=== PATIENT | male | born 1950 | race Caucasian/White ===

== ENCOUNTER 2017-08-16 13:14 | Inpatient (IN) | payer MEDICARE, SELFPAY ==
[2017-08-16] VITALS (14 sets, daily range): BP systolic 99–125; BP diastolic 60–78; PULSE 91–98; RESP 12–24; TEMP 36.6–37.4; O2SAT 77–97; BMI 15.6; BMI 15.7; BMI 15.0
--- NOTE | 2017-08-16 13:39 | CT_ITS ---
STUDY: CT BRAIN WITHOUT CONTRAST REASON FOR EXAM: Male, 67 years old. Confusion. History of esophageal carcinoma. RADIATION DOSAGE (If Supplied By Facility): CTDIvol = ( 44.99 ) mGy, DLP = ( 796.11 ) mGycm TECHNIQUE: Transaxial CT imaging of the brain was performed without administration of intravenous contrast material. Individualized dose optimization techniques were used for this CT. COMPARISON: None. FINDINGS: Normal soft tissue structures. Normal calvarium. There is mild cerebral atrophy with widening of the extra-axial spaces and ventricular dilatation. Normal white matter tracts of the cerebral hemispheres. Normal basal ganglia and thalami. Normal brainstem. There is mild cerebellar atrophy. There is no intracranial hemorrhage. There are no findings of an acute ischemic infarction. Mucosal thickening of the ethmoid sinuses bilaterally. CT/Brain/Head without Contrast IMPRESSION: Chronic involutional changes of the brain. Electronically Signed: Sin Pascal MD at 14:15 EDT Tel [phone], Service support ,
--- NOTE | 2017-08-16 13:39 | EKG12_ITS ---
Test Reason : CP Blood Pressure : / mmHG Vent. Rate : 093 BPM Atrial Rate : 093 BPM P-R Int : 162 ms QRS Dur : 098 ms QT Int : 340 ms P-R-T Axes : 062 -53 069 degrees QTc Int : 422 ms Normal sinus rhythm Left anterior fascicular block Abnormal ECG Confirmed by LEAH PEDRO, BARBARA ([id number]), mapping editor MICHAEL LEMOS ([id number] on 08/20/2017 2:11:32 PM Referred By: MADIE/PRETTY Confirmed By:BARBARA LYNN MD
--- NOTE | 2017-08-16 13:41 | RAD_ITS ---
STUDY: X-RAY CHEST REASON FOR EXAM: Male, 67 years old. Cough, shortness of breath and chest pain. TECHNIQUE: AP and lateral views of the chest. COMPARISON: None. FINDINGS: EKG electrodes are seen. Dense infiltration in the right upper lobe. Patchy infiltrates in the right middle lobe and right lower lobe as well as in the left upper lobe. This may represent either bilateral patchy infiltrates versus possible chronic scarring. Radiographic follow-up is recommended. Normal size heart. Normal mediastinum and corona. Normal visualized pulmonary arteries. Normal visualized aortic arch and descending thoracic aorta. Normal visualized thoracic spine. Normal visualized ribs, clavicles, and shoulders. There is no demonstrated abnormality of the visualized soft tissue structures of the upper abdomen. RAD/Chest PA and Lateral IMPRESSION: Bilateral pulmonary infiltrates worse in the right hemithorax as described. Radiographic follow-up is recommended. Electronically Signed: Sin Pascal MD at 14:16 EDT Tel [phone], Service support ,
--- NOTE | 2017-08-16 13:51 | PCA ---
NO OLD EKG
[2017-08-16 14:05] LABS: Absolute Lymphocyte Count 1.13 X10^3/ul (0.83-4.51); Absolute Neutrophil Count 22.6 X10^3/uL (2.0-7.7); Basophil# 0.05 X10^3/uL; Basophil% 0.2 % (0-1); Differential Indicated SCAN CRITERIA MET; Hematocrit 33.9 % (40-54); Lymphocyte # 1.13 X10^3/ul (4.0); Lymphocyte % 4.6 % (19-41); Mean Corp Hgb Conc 32.4 g/gl (32-36); Mean Corpuscular Hgb 29.6 pg (27.0-32.0); Mean Corpuscular Volume 91.4 fL (80-94); Mean Platelet Vol. 8.8 fl (6.2-12.0); Monocyte# 0.59 X10^3/uL; Monocyte% 2.4 % (0-10); Neutrophil # 22.56 X10^3/uL (2.7-7.7); Neutrophil % 91.9 % (47-70); POSITIVE COUNT NO; POSITIVE DIFFERENTIAL YES; POSITIVE MORPHOLOGY YES; Platelet Count 341 K/mm3 (150-450); RBC Distribution Width CV 15.9 % (11.6-14.6); RBC Distribution Width SD 52.9 fl (35.1-43.9); Red Blood Count 3.71 M/mm3 (4.6-6.2); White Blood Count 24.5 K/mm3 (4.4-11.0)
[2017-08-16 14:07] LABS: ALB/GLOB Ratio 0.5 RATIO (0.9-2.4); AST(SGOT) 29 U/L (15-37); Alanine Aminotransfer ALT/SGPT 24 U/L (16-61); Albumin, Serum 2.2 g/dL (3.2-5.0); Alkaline Phosphatase 96 U/L (45-117); Anion Gap 7 (5-15); BUN 26 mg/dL (7-18); BUN/Creat Ratio 24.5 RATIO (10-20); Calcium,Total 8.3 mg/dL (8.5-10.1); Chloride 91 mmol/L (98-107); Creatinine, Serum 1.06 mg/dL (0.70-1.30); EST Glomerular Filtration Rate 74 mL/min (>60); Est Glom Filt Rate - Afr Amer 89 mL/min (>60); Estimated Creatinine Clearance 50.14 ml/min; Globulin 4.8 g/dL (2.2-4.2); Glucose 64 mg/dL (74-106); Potassium 3.8 mmol/L (3.5-5.1); Sodium Level 130 mmol/L (136-145)
[2017-08-16] MEDS: Albuterol 2.5 MG/3 ML VIAL.NEB. INHALATION (14:17)
[2017-08-16 14:35] LABS: BNP,B-Type NATRIURETIC PEPTIDE 86.2 pg/mL (0-100)
--- NOTE | 2017-08-16 15:17 | ED.VIS.GEN ---
History of Present Illness Chief Complaint: Chest Pain Informant: Patient, Family Limited: - - delirium Onset: Days - 2-3 Context: Gradual Onset Timing: Continuous Current Severity: Mild Maximum Severity: Moderate Narrative: Patient has been disoriented, dyspneic, coughing for the past 2 or 3 days. He had throat cancer, radiation, which caused an esophageal stricture, and he receives all nutrition through PEG now. As of lately according to family/girlfriend, he has refused to take things by PEG and has been drinking. She denies any vomiting that she knows of. He was complaining of some chest discomfort for the last couple days. He has been more lethargic. He refused to come to the ER until today. He was admitted to [facility] earlier in the month, discharged about 2 weeks ago to home, for pneumonia. Past Medical History - Allergies and Home Meds Allergies/Adverse Reactions: Allergies No Known Allergies Allergy (Verified 02/09/17 14:11) Home Medications: Home Medications Medication Instructions Recorded Ascorbic Acid [Vitamin C] 500 mg PO DAILY@0800 08/16/17 Buspirone HCl 10 mg PO 08/16/17 Calcium Carbonate [Calcium] 600 mg PO 08/16/17 Duloxetine HCl 60 mg PO 08/16/17 Fludrocortisone Acetate [Florinef] 0.1 mg PO DAILY@0800 08/16/17 Fluticasone 0.05% [Flonase Nasal 1 spray NASAL DAILY 08/16/17 [place]] Folic Acid 0.4 mg PO DAILY@0800 08/16/17 Gabapentin [Neurontin] 800 mg PO TIDCM 08/16/17 Ipratropium/Albuterol Sulfate 3 ml INHALATION Q4H.RT 08/16/17 [Duoneb] Levothyroxine Sodium [Levoxyl] 150 mcg PO DAILY 08/16/17 Meclizine HCl 25 mg PO 08/16/17 Mirtazapine [Remeron] 15 mg PO QHS 08/16/17 Omeprazole [Prilosec] 20 mg PO DAILY 08/16/17 Tramadol HCl [Ultram] 50 mg PO 08/16/17 Primary Care Physician: NOT,DEFINED [NON-STAFF] - Smoking Status: Unknown if ever smoked Review of Systems ROS: Unable to Obtain - limted -- confused, paucity of speech, poor informant, does not answer all questions General: Reports: Malaise Cardiovascular: Reports: Chest pain Respiratory: Reports: Dyspnea, Cough Gastrointestinal: Reports: Abdominal pain - possibly -- inconsistent hx. Denies: Vomiting Musculoskeletal: Reports: Back pain - upper Neurological: Reports: - - disoriented/confused Physical Exam Vital Signs/Narrative: Vital Signs Temp Pulse Resp BP Pulse Ox 08/16/17 15:07 92 16 101/61 95 08/16/17 14:59 97 08/16/17 14:44 92 12 99/63 95 08/16/17 14:29 97 18 08/16/17 13:27 92 24 H 97 08/16/17 13:15 77 08/16/17 13:14 98 F 98 15 125/78 H 97 Inital Vital Signs reviewed: Yes General: Well nourished, Well developed, Cachectic Head: Normocephalic, Atraumatic Eyes: Perrl, EOMI ENT: No rhinorrhea, Dry mucous membranes. Negative for: Nasal congestion, Sinus tenderness Neck: Supple, Nontender, No lymphadenopathy, No JVD Cardiovascular: Regular rate, Regular rhythm, Murmur - soft TA Respiratory: No distress, Chest nontender, Rhonchi - bibasilar Abdomen: Soft, Nontender, Nondistended, Normal bowel sounds, No masses, - - PEG site benign, w/o leakage/erythema/tenderness Back: Nontender, Normal Inspection Extremities: Nontender, No edema Skin: Normal color, No rash Neurological: Alert, Cranial nerves II-XII grossly intact, Normal Strength - except generally/symmetrically weak, Normal Sensation, Confused - oriented to person only Psychological: Normal affect Diagnostic/Tx/Re-eval Impressions Brain CT 08/16/17 13:39 IMPRESSION: Chronic involutional changes of the brain. Electronically Signed: Sin Pascal MD at 14:15 EDT Tel [phone], Service support , Chest X-Ray 08/16/17 13:41 IMPRESSION: Bilateral pulmonary infiltrates worse in the right hemithorax as described. Radiographic follow-up is recommended. Electronically Signed: Sin Pascal MD at 14:16 EDT Tel [phone], Service support , 08/16/17 13:39 Brain/Head without Contrast [CT] Stat 08/16/17 13:41 Chest PA and Lateral [RAD] Stat Laboratory Results 08/16/17 08/16/17 08/16/17 Range/Units 13:30 13:30 13:30 WBC 24.5 H (4.4-11.0) K/mm3 RBC 3.71 L (4.6-6.2) M/mm3 Hgb 11.0 L (13.0-16.5) g/dl Hct 33.9 L (40-54) % MCV 91.4 (80-94) fL MCH 29.6 (27.0-32.0) pg MCHC 32.4 (32-36) g/gl RDW 15.9 H (11.6-14.6) % RDW Differential 52.9 H (35.1-43.9) fl Plt Count 341 (150-450) K/mm3 MPV 8.8 (6.2-12.0) fl Immature Gran % (Auto) 0.900 (0.0-0.9) % Neut % (Auto) 91.9 H (47-70) % Lymph % (Auto) 4.6 L (19-41) % [place] % (Auto) 2.4 (0-10) % Eos % (Auto) 0.0 (0-5) % Baso % (Auto) 0.2 (0-1) % Absolute Neuts (auto) 22.6 H (2.0-7.7) X10^3/uL Absolute Lymphs (auto) 1.13 (0.83-4.51) X10^3/ul Total Counted Not Reportable Differential Comment COMMENT Sodium 130 L (136-145) mmol/L Potassium 3.8 (3.5-5.1) mmol/L Chloride 91 L (98-107) mmol/L Carbon Dioxide 32.0 (21.0-32.0) mmol/L Anion Gap 7 (5-15) BUN 26 H (7-18) mg/dL Creatinine 1.06 (0.70-1.30) mg/dL Estim Creat Clear Calc 50.14 ml/min Est GFR (MDRD) Af Amer 89 (>60) mL/min Est GFR (MDRD) Non-Af 74 (>60) mL/min BUN/Creatinine Ratio 24.5 H (10-20) RATIO Glucose 64 L (74-106) mg/dL Calcium 8.3 L (8.5-10.1) mg/dL Total Bilirubin 0.50 (0.20-1.00) mg/dL AST 29 (15-37) U/L ALT 24 (16-61) U/L Alkaline Phosphatase 96 (45-117) U/L Troponin I < 0.015 (<0.045) ng/mL B-Natriuretic Peptide 86.2 (0-100) pg/mL Total Protein 7.0 (6.4-8.2) g/dL Albumin 2.2 L (3.2-5.0) g/dL Globulin 4.8 H (2.2-4.2) g/dL Albumin/Globulin Ratio 0.5 L (0.9-2.4) RATIO Urine Color (Yellow) Urine Clarity (Clear) Urine pH (5.0 - 8.0) Ur Specific [place] (1.002-1.030) Urine Protein (Negative) mg/dl Urine Glucose (UA) (Normal) mg/dl Urine Ketones (Negative) mg/dl Urine Occult Blood (Negative) /ul Urine Nitrite (Negative) Urine Bilirubin (Negative) mg/dL Urine Urobilinogen (Normal) mg/dl Ur Leukocyte Esterase (Negative) /ul 08/16/17 Range/Units 15:05 WBC (4.4-11.0) K/mm3 RBC (4.6-6.2) M/mm3 Hgb (13.0-16.5) g/dl Hct (40-54) % MCV (80-94) fL MCH (27.0-32.0) pg MCHC (32-36) g/gl RDW (11.6-14.6) % RDW Differential (35.1-43.9) fl Plt Count (150-450) K/mm3 MPV (6.2-12.0) fl Immature Gran % (Auto) (0.0-0.9) % Neut % (Auto) (47-70) % Lymph % (Auto) (19-41) % [place] % (Auto) (0-10) % Eos % (Auto) (0-5) % Baso % (Auto) (0-1) % Absolute Neuts (auto) (2.0-7.7) X10^3/uL Absolute Lymphs (auto) (0.83-4.51) X10^3/ul Total Counted Differential Comment Sodium (136-145) mmol/L Potassium (3.5-5.1) mmol/L Chloride (98-107) mmol/L Carbon Dioxide (21.0-32.0) mmol/L Anion Gap (5-15) BUN (7-18) mg/dL Creatinine (0.70-1.30) mg/dL Estim Creat Clear Calc ml/min Est GFR (MDRD) Af Amer (>60) mL/min Est GFR (MDRD) Non-Af (>60) mL/min BUN/Creatinine Ratio (10-20) RATIO Glucose (74-106) mg/dL Calcium (8.5-10.1) mg/dL Total Bilirubin (0.20-1.00) mg/dL AST (15-37) U/L ALT (16-61) U/L Alkaline Phosphatase (45-117) U/L Troponin I (<0.045) ng/mL B-Natriuretic Peptide (0-100) pg/mL Total Protein (6.4-8.2) g/dL Albumin (3.2-5.0) g/dL Globulin (2.2-4.2) g/dL Albumin/Globulin Ratio (0.9-2.4) RATIO Urine Color Yellow (Yellow) Urine Clarity Clear (Clear) Urine pH 6.0 (5.0 - 8.0) Ur Specific [place] 1.015 (1.002-1.030) Urine Protein 30 H (Negative) mg/dl Urine Glucose (UA) Normal (Normal) mg/dl Urine Ketones Negative (Negative) mg/dl Urine Occult Blood 25 H (Negative) /ul Urine Nitrite Negative (Negative) Urine Bilirubin 1 H (Negative) mg/dL Urine Urobilinogen 1 H (Normal) mg/dl Ur Leukocyte Esterase 25 H (Negative) /ul - Rhythm Strip Rhythm Strip: Sinus Rhythm Rate: 92 Ectopy: None - EKG 1 Interpretation: Sinus Rhythm, No Acute Injury Pattern, LAFB Prior: No Prior - Medical Decision Making Patient was given IV fluids and an albuterol treatment, he states his breathing is better. He is lethargic. Took him off of his oxygen, but he went down to 83% on room air, so he was placed back on 2 L, where he is satting in the low to mid 90s. His ABG was reassuring, he was not hypoxic but that was on 4 L nasal cannula. He does not appear to be retaining CO2 20 significant degree. Chest x-ray is consistent with pneumonia in the lower lobes, and given the history, this is likely aspiration. We will treat him with Unasyn. Although he technically is healthcare associated, I think this will be a more appropriate treatment for his acute disease. Discussed with hospitalist for admission to PCU, his vital signs are stable and his lactate is within normal limits and I do not think he needs ICU at this time. ED Disposition - Plan for ED Patient: Disposition: Acute Care Hospital [facility] Chief Complaint: Chest Pain Diagnosis: Aspiration pneumonia, Acute delirium, Sepsis Referrals: NOT,DEFINED [NON-STAFF] -
[2017-08-16 15:22] LABS: Color, Urine Yellow (Yellow); Glucose, Dipstick Normal (Normal); Ketone-Dipstick Negative (Negative); Leukocyte Esterase-Dipstick 25 /ul (Negative); Nitrite-Dipstick Negative (Negative); Occult Blood-Urine 25 /ul (Negative); Protein-Dipstick 30 mg/dl (Negative); Specific Gravity, Urine 1.015 (1.002-1.030); Urine Bilirubin Dipstick 1 mg/dL (Negative); Urine Clarity Clear (Clear); Urine Urobilinogen 1 mg/dl (Normal)
--- NOTE | 2017-08-16 15:27 | ED.DCSUM_ITS ---
History of Present Illness Chief Complaint: Chest Pain Informant: Patient, Family Limited: - - delirium Onset: Days - 2-3 Context: Gradual Onset Timing: Continuous Current Severity: Mild Maximum Severity: Moderate Narrative: Patient has been disoriented, dyspneic, coughing for the past 2 or 3 days. He had throat cancer, radiation, which caused an esophageal stricture, and he receives all nutrition through PEG now. As of lately according to family/ girlfriend, he has refused to take things by PEG and has been drinking. She denies any vomiting that she knows of. He was complaining of some chest discomfort for the last couple days. He has been more lethargic. He refused to come to the ER until today. He was admitted to [facility] earlier in the month, discharged about 2 weeks ago to home, for pneumonia. Past Medical History - Allergies and Home Meds Allergies/Adverse Reactions: Allergies No Known Allergies Allergy (Verified 02/09/17 14:11) Home Medications: Home Medications Medication Instructions Recorded Ascorbic Acid [Vitamin C] 500 mg PO DAILY@0800 08/16/17 Buspirone HCl 10 mg PO 08/16/17 Calcium Carbonate [Calcium] 600 mg PO 08/16/17 Duloxetine HCl 60 mg PO 08/16/17 Fludrocortisone Acetate [Florinef] 0.1 mg PO DAILY@0800 08/16/17 Fluticasone 0.05% [Flonase Nasal 1 spray NASAL DAILY 08/16/17 [place]] Folic Acid 0.4 mg PO DAILY@0800 08/16/17 Gabapentin [Neurontin] 800 mg PO TIDCM 08/16/17 Ipratropium/Albuterol Sulfate 3 ml INHALATION Q4H.RT 08/16/17 [Duoneb] Levothyroxine Sodium [Levoxyl] 150 mcg PO DAILY 08/16/17 Meclizine HCl 25 mg PO 08/16/17 Mirtazapine [Remeron] 15 mg PO QHS 08/16/17 Omeprazole [Prilosec] 20 mg PO DAILY 08/16/17 Tramadol HCl [Ultram] 50 mg PO 08/16/17 Primary Care Physician: NOT,DEFINED [NON-STAFF] - Smoking Status: Unknown if ever smoked Review of Systems ROS: Unable to Obtain - limted -- confused, paucity of speech, poor informant, does not answer all questions General: Reports: Malaise Cardiovascular: Reports: Chest pain Respiratory: Reports: Dyspnea, Cough Gastrointestinal: Reports: Abdominal pain - possibly -- inconsistent hx. Denies : Vomiting Musculoskeletal: Reports: Back pain - upper Neurological: Reports: - - disoriented/confused Physical Exam Vital Signs/Narrative: Vital Signs Temp Pulse Resp BP Pulse Ox 08/16/17 15:07 92 16 101/61 95 08/16/17 14:59 97 08/16/17 14:44 92 12 99/63 95 08/16/17 14:29 97 18 08/16/17 13:27 92 24 H 97 08/16/17 13:15 77 08/16/17 13:14 98 F 98 15 125/78 H 97 Inital Vital Signs reviewed: Yes General: Well nourished, Well developed, Cachectic Head: Normocephalic, Atraumatic Eyes: Perrl, EOMI ENT: No rhinorrhea, Dry mucous membranes. Negative for: Nasal congestion, Sinus tenderness Neck: Supple, Nontender, No lymphadenopathy, No JVD Cardiovascular: Regular rate, Regular rhythm, Murmur - soft TA Respiratory: No distress, Chest nontender, Rhonchi - bibasilar Abdomen: Soft, Nontender, Nondistended, Normal bowel sounds, No masses, - - PEG site benign, w/o leakage/erythema/tenderness Back: Nontender, Normal Inspection Extremities: Nontender, No edema Skin: Normal color, No rash Neurological: Alert, Cranial nerves II-XII grossly intact, Normal Strength - except generally/symmetrically weak, Normal Sensation, Confused - oriented to person only Psychological: Normal affect Diagnostic/Tx/Re-eval Impressions Brain CT 08/16/17 13:39 IMPRESSION: Chronic involutional changes of the brain. Electronically Signed: Sin Pascal MD at 14:15 EDT Tel [phone], Service support , Chest X-Ray 08/16/17 13:41 IMPRESSION: Bilateral pulmonary infiltrates worse in the right hemithorax as described. Radiographic follow-up is recommended. Electronically Signed: Sin Pascal MD at 14:16 EDT Tel [phone], Service support , 08/16/17 13:39 Brain/Head without Contrast [CT] Stat 08/16/17 13:41 Chest PA and Lateral [RAD] Stat Laboratory Results 08/16/17 08/16/17 08/16/17 Range/Units 13:30 13:30 13:30 WBC 24.5 H (4.4-11.0) K/mm3 RBC 3.71 L (4.6-6.2) M/mm3 Hgb 11.0 L (13.0-16.5) g/dl Hct 33.9 L (40-54) % MCV 91.4 (80-94) fL MCH 29.6 (27.0-32.0) pg MCHC 32.4 (32-36) g/gl RDW 15.9 H (11.6-14.6) % RDW Differential 52.9 H (35.1-43.9) fl Plt Count 341 (150-450) K/mm3 MPV 8.8 (6.2-12.0) fl Immature Gran % (Auto) 0.900 (0.0-0.9) % Neut % (Auto) 91.9 H (47-70) % Lymph % (Auto) 4.6 L (19-41) % [place] % (Auto) 2.4 (0-10) % Eos % (Auto) 0.0 (0-5) % Baso % (Auto) 0.2 (0-1) % Absolute Neuts (auto) 22.6 H (2.0-7.7) X10^3/uL Absolute Lymphs (auto) 1.13 (0.83-4.51) X10^3/ul Total Counted Not Reportable Differential Comment COMMENT Sodium 130 L (136-145) mmol/L Potassium 3.8 (3.5-5.1) mmol/L Chloride 91 L (98-107) mmol/L Carbon Dioxide 32.0 (21.0-32.0) mmol/L Anion Gap 7 (5-15) BUN 26 H (7-18) mg/dL Creatinine 1.06 (0.70-1.30) mg/dL Estim Creat Clear Calc 50.14 ml/min Est GFR (MDRD) Af Amer 89 (>60) mL/min Est GFR (MDRD) Non-Af 74 (>60) mL/min BUN/Creatinine Ratio 24.5 H (10-20) RATIO Glucose 64 L (74-106) mg/dL Calcium 8.3 L (8.5-10.1) mg/dL Total Bilirubin 0.50 (0.20-1.00) mg/dL AST 29 (15-37) U/L ALT 24 (16-61) U/L Alkaline Phosphatase 96 (45-117) U/L Troponin I < 0.015 (<0.045) ng/mL B-Natriuretic Peptide 86.2 (0-100) pg/mL Total Protein 7.0 (6.4-8.2) g/dL Albumin 2.2 L (3.2-5.0) g/dL Globulin 4.8 H (2.2-4.2) g/dL Albumin/Globulin Ratio 0.5 L (0.9-2.4) RATIO Urine Color (Yellow) Urine Clarity (Clear) Urine pH (5.0 - 8.0) Ur Specific [place] (1.002-1.030) Urine Protein (Negative) mg/dl Urine Glucose (UA) (Normal) mg/dl Urine Ketones (Negative) mg/dl Urine Occult Blood (Negative) /ul Urine Nitrite (Negative) Urine Bilirubin (Negative) mg/dL Urine Urobilinogen (Normal) mg/dl Ur Leukocyte Esterase (Negative) /ul 08/16/17 Range/Units 15:05 WBC (4.4-11.0) K/mm3 RBC (4.6-6.2) M/mm3 Hgb (13.0-16.5) g/dl Hct (40-54) % MCV (80-94) fL MCH (27.0-32.0) pg MCHC (32-36) g/gl RDW (11.6-14.6) % RDW Differential (35.1-43.9) fl Plt Count (150-450) K/mm3 MPV (6.2-12.0) fl Immature Gran % (Auto) (0.0-0.9) % Neut % (Auto) (47-70) % Lymph % (Auto) (19-41) % [place] % (Auto) (0-10) % Eos % (Auto) (0-5) % Baso % (Auto) (0-1) % Absolute Neuts (auto) (2.0-7.7) X10^3/uL Absolute Lymphs (auto) (0.83-4.51) X10^3/ul Total Counted Differential Comment Sodium (136-145) mmol/L Potassium (3.5-5.1) mmol/L Chloride (98-107) mmol/L Carbon Dioxide (21.0-32.0) mmol/L Anion Gap (5-15) BUN (7-18) mg/dL Creatinine (0.70-1.30) mg/dL Estim Creat Clear Calc ml/min Est GFR (MDRD) Af Amer (>60) mL/min Est GFR (MDRD) Non-Af (>60) mL/min BUN/Creatinine Ratio (10-20) RATIO Glucose (74-106) mg/dL Calcium (8.5-10.1) mg/dL Total Bilirubin (0.20-1.00) mg/dL AST (15-37) U/L ALT (16-61) U/L Alkaline Phosphatase (45-117) U/L Troponin I (<0.045) ng/mL B-Natriuretic Peptide (0-100) pg/mL Total Protein (6.4-8.2) g/dL Albumin (3.2-5.0) g/dL Globulin (2.2-4.2) g/dL Albumin/Globulin Ratio (0.9-2.4) RATIO Urine Color Yellow (Yellow) Urine Clarity Clear (Clear) Urine pH 6.0 (5.0 - 8.0) Ur Specific [place] 1.015 (1.002-1.030) Urine Protein 30 H (Negative) mg/dl Urine Glucose (UA) Normal (Normal) mg/dl Urine Ketones Negative (Negative) mg/dl Urine Occult Blood 25 H (Negative) /ul Urine Nitrite Negative (Negative) Urine Bilirubin 1 H (Negative) mg/dL Urine Urobilinogen 1 H (Normal) mg/dl Ur Leukocyte Esterase 25 H (Negative) /ul - Rhythm Strip Rhythm Strip: Sinus Rhythm Rate: 92 Ectopy: None - EKG 1 Interpretation: Sinus Rhythm, No Acute Injury Pattern, LAFB Prior: No Prior - Medical Decision Making Patient was given IV fluids and an albuterol treatment, he states his breathing is better. He is lethargic. Took him off of his oxygen, but he went down to 83 % on room air, so he was placed back on 2 L, where he is satting in the low to mid 90s. His ABG was reassuring, he was not hypoxic but that was on 4 L nasal cannula. He does not appear to be retaining CO2 20 significant degree. Chest x -ray is consistent with pneumonia in the lower lobes, and given the history, this is likely aspiration. We will treat him with Unasyn. Although he technically is healthcare associated, I think this will be a more appropriate treatment for his acute disease. Discussed with hospitalist for admission to PCU, his vital signs are stable and his lactate is within normal limits and I do not think he needs ICU at this time. ED Disposition - Plan for ED Patient: Disposition: Acute Care Hospital [facility] Chief Complaint: Chest Pain Diagnosis: Aspiration pneumonia, Acute delirium, Sepsis Referrals: NOT,DEFINED [NON-STAFF] -
[2017-08-16 15:29] LABS: Bacteria RARE /hpf (None Seen); Mucous, Urine 2+ /hpf (<or=2+); Red Blood Cells-Urine 0-5 SEEN /hpf (0-5); Squamous Epithelial Cells - UA 0-5 SEEN /hpf (0-5); White Blood Cells 0-5 SEEN /hpf (0-5)
--- NOTE | 2017-08-16 16:18 | ED.RN ---
PT PLACED ON O2 2L VIA NC. DR OLSEN NOTIFIED
--- NOTE | 2017-08-16 16:46 | CM.ED ---
CM INITIAL ASSESSMENT: Patient is in the ED at this time. Patient's girlfriend, Norah Truong, is at bedside and assists with answering questions. Home: Norah states she plans to bring the patient to her home after discharge. She lives in a two story home with 9 steps. She states that she and her son assist him in getting up the stairs. HHS/Aides: Patient has [employer] services with 3 hours of aides and nurses, three times per week (according to Norah). However, these services are only available when the patient is at HIS home address. They are considering transferring his home address to Norah's home. Passport Government Auditor: Loulou Hanson. [facility]port notified of patient's admission to [facility]. DME: Norah's home has a hospital bed, bedside commode, and Home Oxygen: Patient wears 2 L NC oxygen, at home. Per Norah, he is supposed to wear this continuously but does not comply. [facility]acy: [facility] [place]. Advance Directives: Norah states the patient's daughter has been working on this paperwork but has not completed yet. Norah states she will ask her to bring the paperwork to [facility] to complete during this admission. I did notify Norah that we can notarize here. PCP: Rudi Moore Specialists: Pulmonology - Dr. Iyer. Patient denies other specialists. Note: Recent admission, two weeks ago at [facility], for pneumonia. DC Plan: TBD. CM will continue to follow for safe and effective discharge planning.
[2017-08-16 16:49] LABS: Lactic Acid 1.8 mmol/L (0.4-2.0)
--- NOTE | 2017-08-16 16:57 | CASEMGMT ---
Social Work Note Updated by RN JONATHAN - Steffanie Green - that pt had [employer] services. Contacted coverage line and was transferred to pt's pillowcase cleaner's (Loulou Riec) vm and left message indicating pt's admission date and diagnosis. SW to continue to follow and assist with discharge planning. Constance Ash, HYPERION DEVELOPER, SECURITY FIELD SUPERVISOR
--- NOTE | 2017-08-16 17:02 | PCM.HP.STD ---
<Constance Medrano - Last Filed: 08/16/17 17:55> Problem List (1) GERD (gastroesophageal reflux disease) Status: Acute (2) Hypothyroidism Status: Acute (3) Depression Status: Acute (4) History of throat cancer Status: Acute (5) Dysphagia Status: Chronic History of Present Illness Date of Admission: 08/16/17 Chief Complaint: Confusion, lethary, cough, shortness of breath. The patient is a 67 year old M who presents to the emergency room with increased lethargy, dyspnea, cough and confusion which started on Wednesday. Patient is lethargic on assessment and also a poor informant. His girlfriend at bedside provides HPI. Girlfriend states she lives with patient off and on and notes that on Wednesday he began not feeling well. Patient was recently admitted to [facility] and of July 2017 for aspiration pneumonia due to noncompliance with recommended n.p.o. status due to chronic dysphasia as a result of esophageal stricture status post radiation from throat cancer. Patient was advised n.p.o. status at that time and to continue feeding through PEG tube. He has not followed these instructions. He was discharged at that time with 10 days of Augmentin therapy. Patient denies chest pain. Patient has chronic hypoxic respiratory failure and wears 2 L nasal cannula at baseline. He denies productive cough. Denies fever, chills. He has a past medical history of recurrent aspiration pneumonia, GERD, hypothyroidism, depression, history of throat cancer status post radiation approximately 8 years ago, chronic adrenal insufficiency, severe protein calorie malnutrition, chronic hypoxic respiratory failure, history of acute blood loss anemia secondary to acute upper GI bleed secondary to gastritis, chronic dysphagia secondary to esophageal stricture. Past Medical History Past Medical History (Chronic Problems): Chronic Problems Status post insertion of percutaneous endoscopic gastrostomy (PEG) tube (Chronic) GERD (gastroesophageal reflux disease) (Chronic) Hypothyroidism (Chronic) Depression (Chronic) History of throat cancer (Chronic) Dysphagia (Chronic) Allergies No Known Allergies Allergy (Verified 02/09/17 14:11) Home Medications: Ambulatory Orders Medication Instructions Recorded Ascorbic Acid [Vitamin C] 500 mg GT DAILY@0800 08/16/17 Buspirone HCl 10 mg GT DAILY 08/16/17 Calcium Carbonate [Calcium] 600 mg GT DAILY 08/16/17 Duloxetine HCl 60 mg GT DAILY 08/16/17 Fludrocortisone Acetate [Florinef] 0.1 mg GT DAILY@0800 08/16/17 Fluticasone 0.05% [Flonase Nasal 1 spray NASAL DAILY 08/16/17 [place]] Folic Acid 0.4 mg GT DAILY@0800 08/16/17 Gabapentin [Neurontin] 800 mg GT TIDCM 08/16/17 Ipratropium/Albuterol Sulfate 3 ml INHALATION Q4H.RT 08/16/17 [Duoneb] Levothyroxine Sodium [Levoxyl] 150 mcg GT DAILY 08/16/17 Meclizine HCl 25 mg GT DAILY PRN PRN 08/16/17 Mirtazapine [Remeron] 15 mg GT QHS 08/16/17 Omeprazole [Prilosec] 20 mg GT DAILY 08/16/17 Tramadol HCl [Ultram] 50 mg GT DAILY PRN PRN 08/16/17 Surgical History: - - PEG tube placement Psychiatric History: Depression Lives: Alone, Spouse/ Significant Other - Intermittently lives with girlfriend Smoking Status: Former smoker Alcohol: None Drugs: None - *Family History Maternal History Items: Heart Disease Paternal History Items: - - Reports passing secondary to pneumonia Review of Systems Constitutional: Reports: Malaise, Fatigue. Denies: Chills, Fever Eyes: Reports: Drainage, Redness. Denies: Blurred vision HEENT: Reports: Difficulty Swallowing - Chronic. Denies: Head Aches, Sinus Congestion, Sinus Drainage Cardiovascular: Reports: - - Chronic dizziness. Denies: Chest Pain, Edema, Light Headedness, Palpitations, Syncope Respiratory: Reports: Cough, Shortness of Breath. Denies: Sputum production Gastrointestinal: Denies: Abdominal Pain, Diarrhea, Nausea, Vomiting Genitourinary: Denies: Dysuria Musculoskeletal: Denies: Joint Pain, Joint Tenderness Skin: Reports: - - Mouth sores and dryness, chronic. Neurological: Denies: Numbness, Tingling, Focal weakness Psychiatric: Reports: Depression Hematologic/ Lymphatic: Denies: Easy Bruising, Easy Bleeding VTE Information - Inpt Only VTE Present on Admission: No VTE Mechan Device Prophylaxis: None VTE Pharm Prophylaxis ordered?: Yes Patient Problems: Active and Suspected Problems Aspiration pneumonia (Acute) Acute delirium (Acute) Sepsis (Acute) - Physical Exam General: Lethargic HEENT: - - Bilateral conjunctivae erythema and purulent drainage/crusting. Oral: Dry Mucosa, Ulcerations Present Neck: Supple, No JVD, Negative Carotid Bruits Lungs: Diminished, Rhonchi, Wheezes Cardiovascular: Regular rate, Regular Rhythm, Normal S1, Normal S2, No murmurs Abdomen: Bowel Sounds Present, Soft, Non Tender, Non-Distended, - - PEG tube Extremities: No clubbing, No cyanosis, No edema, Capillary Refill Less than 3 Seconds Skin: No rashes, No breakdown Musculoskeletal: No Tenderness to Palpation of Joints or Extremities Neurological: Cranial nerves II-XII grossly intact Psych/Mental Status: Flat Affect Vital Signs Temp Pulse Resp BP Pulse Ox 98 F 92 16 101/61 95 08/16/17 13:14 08/16/17 15:07 08/16/17 15:07 08/16/17 15:07 08/16/17 16:18 Oxygen Flow Rate (L/min) 2 Oxygen Delivery Method Nasal Cannula Weight: 53.9 kg Body Mass Index (BMI) 15.6 Laboratory Tests Past 24 Hrs 08/16/17 08/16/17 08/16/17 13:30 13:30 13:30 WBC 24.5 H RBC 3.71 L Hgb 11.0 L Hct 33.9 L MCV 91.4 MCH 29.6 MCHC 32.4 RDW 15.9 H RDW Differential 52.9 H Plt Count 341 MPV 8.8 Immature Gran % (Auto) 0.900 Neut % (Auto) 91.9 H Lymph % (Auto) 4.6 L [place] % (Auto) 2.4 Eos % (Auto) 0.0 Baso % (Auto) 0.2 Absolute Neuts (auto) 22.6 H Absolute Lymphs (auto) 1.13 Total Counted Not Reportable Differential Comment COMMENT Sodium 130 L Potassium 3.8 Chloride 91 L Carbon Dioxide 32.0 Anion Gap 7 BUN 26 H Creatinine 1.06 Estim Creat Clear Calc 50.14 Est GFR (MDRD) Af Amer 89 Est GFR (MDRD) Non-Af 74 BUN/Creatinine Ratio 24.5 H Glucose 64 L Lactic Acid Calcium 8.3 L Total Bilirubin 0.50 AST 29 ALT 24 Alkaline Phosphatase 96 Troponin I < 0.015 B-Natriuretic Peptide 86.2 Total Protein 7.0 Albumin 2.2 L Globulin 4.8 H Albumin/Globulin Ratio 0.5 L Urine Color Urine Clarity Urine pH Ur Specific [place] Urine Protein Urine Glucose (UA) Urine Ketones Urine Occult Blood Urine Nitrite Urine Bilirubin Urine Urobilinogen Ur Leukocyte Esterase Urine RBC Urine WBC Ur Squamous Epith Cells Urine Bacteria Urine Mucus 08/16/17 08/16/17 15:05 16:06 WBC RBC Hgb Hct MCV MCH MCHC RDW RDW Differential Plt Count MPV Immature Gran % (Auto) Neut % (Auto) Lymph % (Auto) [place] % (Auto) Eos % (Auto) Baso % (Auto) Absolute Neuts (auto) Absolute Lymphs (auto) Total Counted Differential Comment Sodium Potassium Chloride Carbon Dioxide Anion Gap BUN Creatinine Estim Creat Clear Calc Est GFR (MDRD) Af Amer Est GFR (MDRD) Non-Af BUN/Creatinine Ratio Glucose Lactic Acid 1.8 Calcium Total Bilirubin AST ALT Alkaline Phosphatase Troponin I B-Natriuretic Peptide Total Protein Albumin Globulin Albumin/Globulin Ratio Urine Color Yellow Urine Clarity Clear Urine pH 6.0 Ur Specific [place] 1.015 Urine Protein 30 H Urine Glucose (UA) Normal Urine Ketones Negative Urine Occult Blood 25 H Urine Nitrite Negative Urine Bilirubin 1 H Urine Urobilinogen 1 H Ur Leukocyte Esterase 25 H Urine RBC 0-5 SEEN Urine WBC 0-5 SEEN Ur Squamous Epith Cells 0-5 SEEN Urine Bacteria RARE Urine Mucus 2+ Assessment/Plan Active and Suspected Problems Aspiration pneumonia (Acute) Acute delirium (Acute) Sepsis (Acute) 1. Recurrent aspiration pneumonia vs hospital acquired pneumonia-Recently hospitalized treated end of July 2017 for pneumonia due to aspiration, septic shock and iron deficiency anemia secondary to gastrointestinal hemorrhage. Patient underwent modified barium swallow 07/26/2017 at [facility] which showed aspiration of nectar and thin consistency barium. He was discharged on Augmentin for 10 days of therapy. Patient has a history of noncompliance with recommended n.p.o. status. He has chronic dysphasia secondary to esophageal stricture as a result of history of throat cancer and radiation. Palliative care was discussed with patient during recent admission at [facility] and patient declined. More suspicious for aspiration pneumonia as opposed to hospital-acquired pneumonia. IV Zosyn. IS/PEP. Urine for strep and Legionella. Send sputum for culture if able. Continue supplemental oxygen to maintain O2 at or above 90%. Aspiration precautions. Speech therapy consult. NPO. Blood cultures drawn in ER. Patient with leukocytosis, WBC 24. No other evidence of sepsis. Afebrile. No tachycardia. No hypotension. On baseline 2 L of oxygen. 2. Chronic hypoxic respiratory failure-chronically wears 2 L nasal cannula at baseline. Continue supplemental oxygen to maintain O2 at or above 90%. 3. Chronic anemia-recent acute blood loss anemia secondary to acute upper GI bleed as a result of gastritis and esophageal stricture. EGD was completed at that time which showed gastric ulcers with clot suggestive of erosion from prior feeding tube. Feeding tube was replaced during that visit. Continue PPI. Previously on iron supplementation which she has no longer taking. Recommend adding iron 325 mg twice daily. Monitor CBC. 4. Chronic dysphagia secondary to esophageal stricture as a result of prior throat cancer and radiation therapy-n.p.o. Consult speech therapy. Recent barium swallow at [facility] as noted above. 5. Bilateral conjunctivitis-Erythromycin ointment and cipro eye drops. 6. Oral mucositis-secondary to chronic n.p.o. status. Oral care Q2 hours. 7. Chronic adrenal insufficiency-continue home Florinef regimen. 8. Hypothyroidism-continue home Synthroid regimen. 9. GERD-continue PPI. 10. Depression-continue home duloxetine, buspirone regimen. 11. Severe protein calorie malnutrition-BMI 15.7. Consult nutrition. DVT prophylaxis-Lovenox subcu. Code status-discussed CODE STATUS with patient. Patient wishes to be a DNR CCA. Palliative care discussed with patient at previous admission to outside facility and patient was not interested at that time. Will revisit this admission. Consult case management. This patient was seen by [facility] under the supervision of Dr. Tariq. <Any Tariq - Last Filed: 08/16/17 18:16> History of Present Illness The patient is a 67 year old M [] Past Medical History Allergies No Known Allergies Allergy (Verified 02/09/17 14:11) - Physical Exam Vital Signs Temp Pulse Resp BP Pulse Ox 98 F 96 17 109/60 95 08/16/17 13:14 08/16/17 17:22 08/16/17 17:22 08/16/17 17:22 08/16/17 17:22 Assessment/Plan Hospitalist note: I am seeing this patient in conjunction with Constance Medrano. I independently seen and examined the patient. History and physical, laboratory data and imaging studies reviewed and I agree with above admission and treatment plan. The patient is poor informant and was not able to provide good history. His girlfriend was at the bedside and she provides most of the information. Patient has been sick for the last 3 days with weakness, confusion and lethargy as well as cough and shortness of breath. He was discharged around 10 days ago from [facility] in [place] after admission for aspiration pneumonia. He has been noncompliant, has been taking p.o. he had a history of throat cancer status post radiation therapy and he has been in remission according to his girlfriend. He had a history of chronic adrenal insufficiency and he has been on Florinef. At this time, his blood pressure is stable. He had a history of chronic dysphagia secondary to throat cancer, status post PEG tube and recently, he had GI bleeding that was attributed to PEG tube insertion site. During his last admission to [facility] in [place], PEG tube was replaced. He history of hypothyroidism and he has been on levothyroxine. - Physical Exam General: Sleepy, lethargic, easily arousable, cachectic. HEENT: Atraumatic, PERRLA, EOMI. Neck: Supple, No JVD, Negative Carotid Bruits, Trachea Midline, Thyroid Normal. Lungs: Decreased breath sounds bilaterally, bronchial breathing on the whole right lung, rhonchi, transmitted sounds and coarse crackles in the right side. Cardiovascular: Regular rate, Regular Rhythm, Normal S1, Normal S2, PMI Normal. Abdomen: Bowel Sounds Present, Soft, Non Tender, Non-Distended, No Hepato-splenomegaly, PEG tube in place.. Extremities: No clubbing, No cyanosis, No edema Skin: No rashes, No breakdown Neurological: Cranial nerves are intact, moving all limbs. Assessment and plan: #1 recurrent aspiration versus healthcare associated pneumonia/sepsis: Chest x-ray reviewed. His lactic acid was normal. He does have leukocytosis. He is afebrile, blood pressure and heart rate are stable. Plan for IV vancomycin and Zosyn, blood culture, sputum culture, pneumococcal and Legionella antigen, bronchodilators, chest physical therapy, incentive spirometer, repeat CBC and BMP tomorrow morning, speech therapy evaluation and treatment. #2 recent history of acute on chronic anemia secondary to GI bleed: Patient had upper EGD, found to have gastric ulcers, PEG tube was replaced. He has been on iron supplement. Admission hemoglobin is 11 g/dL. At this time, no evidence of active bleeding. No indication for transfusion. Plan to repeat CBC tomorrow morning, IV Pepcid twice daily. #3 bilateral purulent conjunctivitis: We will start him on erythromycin ointment and Cipro eyedrops. #4 other chronic medical problems: Continue current medications as above. #5 CODE STATUS: Initially and according to the discussion of Constance Medrano with the patient and his girlfriend, apparently patient's wishes is DNR CCA. When I went back to the patient and I try to explain to him if his heart stopped working or if he is not able to breathe on his own, what he wants us to do. He stated he wants everything to be done. At this time, I am not sure if the patient is fully alert and oriented to decide on his CODE STATUS. His girlfriend mentioned that his daughter has been having the paperwork of his advanced directive and she has been working on it. At this time, patient's daughter is not available. At this time, patient is full code until clarification with his daughter. This note was generated with [employer] dictation software. It may contain incorrect words, spelling, and punctuation that were not noted in checking the note before signing. Code Visit Inpatient E&M: 87847 Init Hosp L3
[2017-08-16] MEDS: Morphine 4 MG/ML Syringe IV (18:44)
[2017-08-16] MEDS: 0.9% Normal Saline 1,000 ML 100 ML IV (18:44)
[2017-08-16] MEDS: Ipratropium/Albuterol Sulfate 3 ML AMPUL.NEB INHALATION (19:07)
[2017-08-16] MEDS: Piperacil/Tazobactam 3.375 GM/50 ML ML IV (20:55)
[2017-08-16] MEDS: Hydrocortisone Sod Succinate 100 MG/2 ML Vial 50 MG IV (22:02)
[2017-08-16] MEDS: Mirtazapine 15 MG Tablet GT (22:03)
[2017-08-16] MEDS: Ciprofloxacin 0.3% 2.5ml Bottle 1 DRP EACH EYE (22:11)
[2017-08-16] MEDS: Erythromycin Base 1 OPTH.TUBE 1 APPLIC EACH EYE (22:11)
[2017-08-17] VITALS (16 sets, daily range): BP systolic 92–123; BP diastolic 56–77; PULSE 69–89; RESP 12–18; TEMP 36.3–37.1; O2SAT 92–98
[2017-08-17] MEDS: Piperacil/Tazobactam 3.375 GM/50 ML ML IV ×3 (05:04→22:53)
[2017-08-17] MEDS: Ciprofloxacin 0.3% 2.5ml Bottle 1 DRP EACH EYE ×5 (05:05→21:13)
[2017-08-17] MEDS: Hydrocortisone Sod Succinate 100 MG/2 ML Vial 50 MG IV ×3 (05:19→21:14)
[2017-08-17] MEDS: Levothyroxine 150 MCG Tablet GT (05:19)
[2017-08-17] MEDS: Ipratropium/Albuterol Sulfate 3 ML AMPUL.NEB INHALATION ×5 (06:28→23:44)
[2017-08-17 06:29] LABS: Hematocrit 34.1 % (40-54); Hemoglobin 11.4 g/dl (13.0-16.5); Mean Corp Hgb Conc 33.4 g/gl (32-36); Mean Corpuscular Hgb 30.3 pg (27.0-32.0); Mean Corpuscular Volume 90.7 fL (80-94); Platelet Count 393 K/mm3 (150-450); RBC Distribution Width CV 15.8 % (11.6-14.6); RBC Distribution Width SD 51.4 fl (35.1-43.9); Red Blood Count 3.76 M/mm3 (4.6-6.2); White Blood Count 23.6 K/mm3 (4.4-11.0)
[2017-08-17 06:32] LABS: Scan Indicated on CBC? Y/N NO
[2017-08-17 06:47] LABS: Anion Gap 9 (5-15); BUN 22 mg/dL (7-18); BUN/Creat Ratio 26.2 RATIO (10-20); Calcium,Total 8.2 mg/dL (8.5-10.1); Chloride 97 mmol/L (98-107); Creatinine, Serum 0.84 mg/dL (0.70-1.30); EST Glomerular Filtration Rate 96 mL/min (>60); Est Glom Filt Rate - Afr Amer 117 mL/min (>60); Estimated Creatinine Clearance 59.28 ml/min; Glucose 77 mg/dL (74-106); Potassium 3.7 mmol/L (3.5-5.1); Sodium Level 135 mmol/L (136-145)
[2017-08-17] MEDS: 0.9% Normal Saline 1,000 ML 100 ML IV ×2 (07:02→16:57)
[2017-08-17] MEDS: Ferrous Sulfate 325 MG Tablet PO (09:01)
[2017-08-17] MEDS: Gabapentin 800 MG Tablet GT ×3 (09:01→16:55)
[2017-08-17] MEDS: Folic Acid 1 MG Tablet 0.5 MG GT (09:01)
[2017-08-17] MEDS: busPIRone 5 MG Tablet 10 MG GT (09:01)
[2017-08-17] MEDS: Fluticasone 0.05% 1 SPRAY NASAL.SRY NASAL (09:02)
[2017-08-17] MEDS: Erythromycin Base 1 OPTH.TUBE 1 APPLIC EACH EYE ×2 (09:02→21:15)
[2017-08-17] MEDS: Enoxaparin 40 MG/0.4 ML Syringe SC (09:03)
[2017-08-17] MEDS: Morphine 4 MG/ML Syringe IV (11:55)
--- NOTE | 2017-08-17 12:47 | CHAPLAIN ---
Type of Pastoral Visit _x__ Initial Visit ___ Follow-up Visit ___ On-call Visit ___ General Patient Visit ___ Spiritual Assessment ___ Family Conference ___ Bereavement ___ Rapid Response ___ Code Blue ___ Other (describe below) Pastoral Care Referral From _x__ Patient ___ Family ___ Nurse ___ Physician ___ Office Messenger Helper ___ Mold Chipper ___ Other (describe below) Sacrament/Intervention ___ Active listening ___ Anointing ___ Restorationist ___ Bereavement ___ Communion _x__ Chanel exploration ___ ___ Life review _x__ Prayer ___ Reconciliation ___ Sacrament of Sick _x__ Supportive presence ___ Wedding ___ Other (describe below) Pastoral Comments patient reports that I am saved and baptized and that he is not worried about dying; patient says that he just would like prayers; pt also requests receiving a Bible; SO is with pt at bedside chair; SO does not engage in conversation but answered simple questions;
--- NOTE | 2017-08-17 12:50 | PCM.PROGNOTE ---
<Constance Medrano - Last Filed: 08/17/17 12:59> Patient Problems: Active and Suspected Problems Aspiration pneumonia (Acute) Acute delirium (Acute) Sepsis (Acute) Subjective: Patient seen and examined. More alert and appropriate prior assessment on admission. Continues to fall asleep during conversation. States he feels better. Denies current complaints. Discussed home-going needs with patient and he wishes to return home with no further assistance. - Physical Exam General: Oriented x3, Cooperative HEENT: - - Bilateral conjunctivae erythema and purulent drainage/crusting. Oral: Dry Mucosa, Ulcerations Present Neck: Supple, No JVD, Negative Carotid Bruits Lungs: Diminished, Rhonchi, Wheezes Cardiovascular: Regular rate, Regular Rhythm, Normal S1, Normal S2, No murmurs Abdomen: Bowel Sounds Present, Soft, Non Tender, Non-Distended, - - PEG tube Extremities: No clubbing, No cyanosis, No edema, Capillary Refill Less than 3 Seconds Skin: No rashes, No breakdown Musculoskeletal: No Tenderness to Palpation of Joints or Extremities Neurological: Cranial nerves II-XII grossly intact Psych/Mental Status: Flat Affect Vital Signs Temp Pulse Resp BP Pulse Ox 98.8 F 85 16 123/75 H 95 08/17/17 09:00 08/17/17 11:01 08/17/17 10:44 08/17/17 09:00 08/17/17 09:00 Oxygen Flow Rate (L/min) 2 Oxygen Delivery Method Nasal Cannula Weight: 50.5 kg Body Mass Index (BMI) 15.0 Intake and Output for Last 24 Hours 08/15/17 08/16/17 08/17/17 23:59 23:59 23:59 Intake Total 840 / 840 1491 / 1491 Balance 840 / 840 1491 / 1491 Laboratory Tests Past 24 Hrs 08/17/17 08/17/17 05:45 05:45 WBC 23.6 H RBC 3.76 L Hgb 11.4 L Hct 34.1 L MCV 90.7 MCH 30.3 MCHC 33.4 RDW 15.8 H RDW Differential 51.4 H Plt Count 393 MPV 9.0 Sodium 135 L Potassium 3.7 Chloride 97 L Carbon Dioxide 29.0 Anion Gap 9 BUN 22 H Creatinine 0.84 Estim Creat Clear Calc 59.28 Est GFR (MDRD) Af Amer 117 Est GFR (MDRD) Non-Af 96 BUN/Creatinine Ratio 26.2 H Glucose 77 Calcium 8.2 L Medical Necessity - Tobacco Use Smoking Status: Former smoker Assessment/Plan Active and Suspected Problems Aspiration pneumonia (Acute) Acute delirium (Acute) Sepsis (Acute) 1. Recurrent aspiration pneumonia vs hospital acquired pneumonia-Recently hospitalized treated end of July 2017 for pneumonia due to aspiration, septic shock and iron deficiency anemia secondary to gastrointestinal hemorrhage. Patient underwent modified barium swallow 07/26/2017 at [facility] which showed aspiration of nectar and thin consistency barium. He was discharged on Augmentin for 10 days of therapy. Patient has a history of noncompliance with recommended n.p.o. status. He has chronic dysphasia secondary to esophageal stricture as a result of history of throat cancer and radiation. Palliative care was discussed with patient during recent admission at [facility] and patient declined. More suspicious for aspiration pneumonia as opposed to hospital-acquired pneumonia. IV Zosyn and IV Vanc. IS/PEP. Urine for strep and Legionella negative. Send sputum for culture if able. Continue supplemental oxygen to maintain O2 at or above 90%. Aspiration precautions. Speech therapy consult. Speech therapy recommending patient remain NPO. MBS tomorrow. Blood cultures pending. Leukocytosis improving. No other evidence of sepsis. Afebrile. No tachycardia. No hypotension. On baseline 2 L of oxygen. Begin PEG tube feeding per dietitian recommendations. 2. Chronic hypoxic respiratory failure-chronically wears 2 L nasal cannula at baseline. Continue supplemental oxygen to maintain O2 at or above 90%. 3. Chronic anemia-recent acute blood loss anemia secondary to acute upper GI bleed as a result of gastritis and esophageal stricture. EGD was completed at that time which showed gastric ulcers with clot suggestive of erosion from prior feeding tube. Feeding tube was replaced during that visit. Continue PPI. Previously on iron supplementation which she has no longer taking. Recommend adding iron 325 mg twice daily. Monitor CBC. 4. Chronic dysphagia secondary to esophageal stricture as a result of prior throat cancer and radiation therapy-n.p.o. Consult speech therapy. Recent barium swallow at [facility] as noted above. 5. Bilateral conjunctivitis-Erythromycin ointment and cipro eye drops. 6. Oral mucositis-secondary to chronic n.p.o. status. Oral care Q2 hours. 7. Chronic adrenal insufficiency-continue home Florinef regimen. 8. Hypothyroidism-continue home Synthroid regimen. 9. GERD-continue PPI. 10. Depression-continue home duloxetine, buspirone regimen. 11. Severe protein calorie malnutrition-BMI 15.7. Consult nutrition. DVT prophylaxis-Lovenox subcu. This patient was seen by Constance Medrano NP-C under the supervision of Dr. Tariq. <Any Traiq E - Last Filed: 08/17/17 13:28> - Physical Exam Vital Signs Temp Pulse Resp BP Pulse Ox 98.8 F 85 16 123/75 H 95 08/17/17 09:00 08/17/17 11:01 08/17/17 10:44 08/17/17 09:00 08/17/17 09:00 Oxygen Flow Rate (L/min) 2 Oxygen Delivery Method Nasal Cannula Weight: 111 lb 5.335 oz Body Mass Index (BMI) 15.0 Intake and Output for Last 24 Hours 08/15/17 08/16/17 08/17/17 23:59 23:59 23:59 Intake Total 840 / 840 1491 / 1491 Balance 840 / 840 1491 / 1491 Laboratory Tests Past 24 Hrs 08/17/17 08/17/17 05:45 05:45 WBC 23.6 H RBC 3.76 L Hgb 11.4 L Hct 34.1 L MCV 90.7 MCH 30.3 MCHC 33.4 RDW 15.8 H RDW Differential 51.4 H Plt Count 393 MPV 9.0 Sodium 135 L Potassium 3.7 Chloride 97 L Carbon Dioxide 29.0 Anion Gap 9 BUN 22 H Creatinine 0.84 Estim Creat Clear Calc 59.28 Est GFR (MDRD) Af Amer 117 Est GFR (MDRD) Non-Af 96 BUN/Creatinine Ratio 26.2 H Glucose 77 Calcium 8.2 L Assessment/Plan Hospitalist note: I am seeing this patient in conjunction with Constance Medrano. I independently seen and examined the patient. Progress note above and laboratory data and I agree with above treatment plan. Patient seen and examined today. He seemed to be more alert and awake. Continued to fall asleep during conversation. He denied any significant symptoms at this time. His vital signs are stable, remained on 2 L of oxygen which is his baseline at home. - Physical Exam General: Sleepy, lethargic, easily arousable, cachectic. HEENT: Atraumatic, PERRLA, EOMI. Neck: Supple, No JVD, Negative Carotid Bruits, Trachea Midline, Thyroid Normal. Lungs: Decreased breath sounds bilaterally, bronchial breathing on the whole right lung, rhonchi, transmitted sounds and coarse crackles in the right side. Cardiovascular: Regular rate, Regular Rhythm, Normal S1, Normal S2, PMI Normal. Abdomen: Bowel Sounds Present, Soft, Non Tender, Non-Distended, No Hepato-splenomegaly, PEG tube in place.. Extremities: No clubbing, No cyanosis, No edema Skin: No rashes, No breakdown Neurological: Cranial nerves are intact, moving all limbs. Assessment and plan: #1 recurrent aspiration versus healthcare associated pneumonia/sepsis: He is on IV Zosyn and vancomycin. The right, white blood cell count is trending down. He remained on 2 L of oxygen which is his baseline. Blood cultures pending. Pneumococcal and Legionella antigen were negative. Awaiting speech therapy to evaluate the patient. Plan to continue same treatment. #2 recent history of acute on chronic anemia secondary to GI bleed: He is on IV Protonix. At this time, no evidence of GI bleed. Patient had upper EGD recently at outside facility, found to have gastric ulcers, PEG tube was replaced. He has been on iron supplement. Today's hemoglobin is 11.4 g/dL, stable. #3 bilateral purulent conjunctivitis: He is on erythromycin ointment and Cipro eyedrops. #4 other chronic medical problems: Continue current medications as above. #5 CODE STATUS: Patient's girlfriend was at the bedside and she mentioned that she was not able to get hold of patient's daughter to discuss the CODE STATUS. This note was generated with [employer] dictation software. It may contain incorrect words, spelling, and punctuation that were not noted in checking the note before signing. Code Visit Inpatient E&M: 49153 Subs Hosp L2
--- NOTE | 2017-08-17 13:14 | NS ---
Rec Jevity 1.5 at goal rate of 45cc/hour w/ 130c H2O flush every 4 hours to provide 1620 calories, 69 g protein, and 1600 free fluid per day. Would start TF at 20cc/hour and increase every 6 to 8 hours as pt tolerates until goal rate achieved. Will adjust recommendations as warranted pending pt tolerance once tube feeding initiated.
--- NOTE | 2017-08-17 14:50 | NURSING ---
Was asked to see patient for mouth sores. Discussed with PATRICK Nolasco and talked about the possibility of using the BMX solution if sores are painful. states that patient also has sores on the outside of his mouth. lips appear very dry. patient is currently sleeping. would recommend lip/mouth moisturizer. MARIBEL Pinto states that patient has been refusing chapstick or anything on his lips.
[2017-08-17] MEDS: Ferrous Sulfate 300 MG/5 ML UDC 325 MG PO (16:55)
[2017-08-17] MEDS: Jevity 1.5 1,000 ML 30 ML GT (16:58)
[2017-08-17] MEDS: Mirtazapine 15 MG Tablet GT (21:15)
[2017-08-18] VITALS (18 sets, daily range): BP systolic 102–130; BP diastolic 59–83; PULSE 70–91; RESP 14–18; TEMP 36.3–36.9; O2SAT 92–97
--- NOTE | 2017-08-18 00:25 | NURSING ---
Increased PEG tube feeding to 30 ml/hr. pt tolerating well.
[2017-08-18] MEDS: Ciprofloxacin 0.3% 2.5ml Bottle 1 DRP EACH EYE ×6 (03:00→22:40)
[2017-08-18] MEDS: 0.9% Normal Saline 1,000 ML 100 ML IV ×2 (03:12→14:58)
[2017-08-18] MEDS: Ipratropium/Albuterol Sulfate 3 ML AMPUL.NEB INHALATION ×6 (03:43→23:36)
[2017-08-18] MEDS: Piperacil/Tazobactam 3.375 GM/50 ML ML IV ×3 (06:48→22:46)
[2017-08-18] MEDS: Hydrocortisone Sod Succinate 100 MG/2 ML Vial 50 MG IV ×3 (06:49→22:40)
[2017-08-18] MEDS: Levothyroxine 150 MCG Tablet GT (06:50)
[2017-08-18 07:43] LABS: Hematocrit 29.3 % (40-54); Hemoglobin 9.5 g/dl (13.0-16.5); Mean Corp Hgb Conc 32.4 g/gl (32-36); Mean Corpuscular Hgb 29.1 pg (27.0-32.0); Mean Corpuscular Volume 89.6 fL (80-94); Mean Platelet Vol. 8.6 fl (6.2-12.0); Platelet Count 332 K/mm3 (150-450); RBC Distribution Width SD 52.4 fl (35.1-43.9); Red Blood Count 3.27 M/mm3 (4.6-6.2); White Blood Count 18.4 K/mm3 (4.4-11.0)
[2017-08-18 07:53] LABS: Scan Indicated on CBC? Y/N NO
[2017-08-18 08:04] LABS: Anion Gap 6 (5-15); BUN 20 mg/dL (7-18); BUN/Creat Ratio 27.7 RATIO (10-20); Calcium,Total 7.8 mg/dL (8.5-10.1); Chloride 102 mmol/L (98-107); Creatinine, Serum 0.72 mg/dL (0.70-1.30); EST Glomerular Filtration Rate 115 mL/min (>60); Est Glom Filt Rate - Afr Amer 139 mL/min (>60); Glucose 181 mg/dL (74-106); Potassium 3.1 mmol/L (3.5-5.1); Sodium Level 137 mmol/L (136-145)
[2017-08-18] MEDS: Ferrous Sulfate 300 MG/5 ML UDC 325 MG PO ×2 (08:13→16:53)
[2017-08-18] MEDS: Folic Acid 1 MG Tablet 0.5 MG GT (08:14)
[2017-08-18 08:15] LABS: Vancomycin, Trough Level 8.6 ug/mL (5.0-15.0)
[2017-08-18] MEDS: Gabapentin 800 MG Tablet GT ×3 (08:15→16:53)
[2017-08-18] MEDS: busPIRone 5 MG Tablet 10 MG GT (08:15)
[2017-08-18] MEDS: Erythromycin Base 1 OPTH.TUBE 1 APPLIC EACH EYE ×2 (08:16→22:40)
[2017-08-18] MEDS: Enoxaparin 40 MG/0.4 ML Syringe SC (08:17)
[2017-08-18] MEDS: Fluticasone 0.05% 1 SPRAY NASAL.SRY NASAL (08:17)
--- NOTE | 2017-08-18 09:49 | CASEMGMT ---
SW spoke with patient and his significant other. SW explained the physician feels he would benefit from a short term stay at a nursing facility for rehab. Patient immediately shook his head no and his significant other, Norah said absolutely not. She said she and his daughter care for him. She has a roommate that also helps care for him if he needs it. She has a hospital bed and BSC at home for him. SW asked about home therapy and patient had it ordered when he left the hospital, but it is only when he is at his house. Norah said that she has been talking with patient's returned case inspector through [employer] and he can have his services switched to her address. Plan: Home with significant other. Help from significant other and family. Marta MATTSON MSW
--- NOTE | 2017-08-18 11:00 | CASEMGMT ---
SW completed healthcare power of deputy attorney general and healthcare living will with patient and his significant other. Copies were made, one of each placed in chart and others along with original were given to patient. Marta IRAHETA
--- NOTE | 2017-08-18 11:24 | PCM.PROGNOTE ---
<Constance Medrano - Last Filed: 08/18/17 11:39> Patient Problems: Active and Suspected Problems Aspiration pneumonia (Acute) Acute delirium (Acute) Sepsis (Acute) Subjective: Patient seen and examined. More alert and appropriate this morning. Physical therapy recommending further skilled therapy. Patient refuses group home. Girlfriend at bedside states that she can manage his care at home. Patient states he continues to have some increased shortness of breath. Requesting his oxygen be turned up. Denies other complaints. To undergo swallow study with speech therapy today. - Physical Exam General: Alert, Oriented x3, Cooperative HEENT: - - Bilateral conjunctivae erythema and purulent drainage improved. Oral: Dry Mucosa, Ulcerations Present Neck: Supple, No JVD, Negative Carotid Bruits Lungs: Clear to auscultation, Diminished Cardiovascular: Regular rate, Regular Rhythm, Normal S1, Normal S2, No murmurs Abdomen: Bowel Sounds Present, Soft, Non Tender, Non-Distended, - - PEG tube Extremities: No clubbing, No cyanosis, No edema, Capillary Refill Less than 3 Seconds Skin: No rashes, No breakdown Musculoskeletal: No Tenderness to Palpation of Joints or Extremities Neurological: Cranial nerves II-XII grossly intact, Neuro grossly intact Psych/Mental Status: Normal Affect, Appropriate Vital Signs Temp Pulse Resp BP Pulse Ox 98.1 F 82 16 103/64 94 08/18/17 08:59 08/18/17 08:59 08/18/17 08:59 08/18/17 08:59 08/18/17 08:59 Oxygen Flow Rate (L/min) 1 Oxygen Delivery Method Nasal Cannula Weight: 50.5 kg Body Mass Index (BMI) 15.0 Intake and Output for Last 24 Hours 08/16/17 08/17/17 08/18/17 23:59 23:59 23:59 Intake Total 840 / 840 2610 / 2610 2466.6 / 2466.6 Balance 840 / 840 2610 / 2610 2466.6 / 2466.6 Microbiology Past 72 Hours 08/17/17 17:00 Gram Stain - Final Sputum, Expectorated/Coughed Respiratory Culture - Preliminary Appears to be normal respiratory mushtaq. Further studies to follow. Laboratory Tests Past 24 Hrs 08/17/17 08/18/17 08/18/17 16:42 07:30 07:30 WBC 18.4 H RBC 3.27 L Hgb 9.5 L Hct 29.3 L MCV 89.6 MCH 29.1 MCHC 32.4 RDW 16.0 H RDW Differential 52.4 H Plt Count 332 MPV 8.6 Sodium Potassium Chloride Carbon Dioxide Anion Gap BUN Creatinine Estim Creat Clear Calc Est GFR (MDRD) Af Amer Est GFR (MDRD) Non-Af BUN/Creatinine Ratio Glucose Calcium Vancomycin Trough 8.6 Blood Type Cancelled Antibody Screen Cancelled 08/18/17 07:30 WBC RBC Hgb Hct MCV MCH MCHC RDW RDW Differential Plt Count MPV Sodium 137 Potassium 3.1 L Chloride 102 Carbon Dioxide 29.0 Anion Gap 6 BUN 20 H Creatinine 0.72 Estim Creat Clear Calc 49.80 Est GFR (MDRD) Af Amer 139 Est GFR (MDRD) Non-Af 115 BUN/Creatinine Ratio 27.7 H Glucose 181 H Calcium 7.8 L Vancomycin Trough Blood Type Antibody Screen Medical Necessity - Tobacco Use Smoking Status: Former smoker Assessment/Plan Active and Suspected Problems Aspiration pneumonia (Acute) Acute delirium (Acute) Sepsis (Acute) 1. Acute streptococcus pneumonia, recurrent aspiration pneumonia vs hospital acquired pneumonia-Recently hospitalized treated end of July 2017 for pneumonia due to aspiration, septic shock and iron deficiency anemia secondary to gastrointestinal hemorrhage. Patient underwent modified barium swallow 07/26/2017 at [facility] which showed aspiration of nectar and thin consistency barium. He was discharged on Augmentin for 10 days of therapy. Patient has a history of noncompliance with recommended n.p.o. status. He has chronic dysphagia secondary to esophageal stricture as a result of history of throat cancer and radiation. Palliative care was discussed with patient during recent admission at [facility] and patient declined. More suspicious for aspiration pneumonia as opposed to hospital-acquired pneumonia. IV Zosyn and IV Vanc. IS/PEP. Urine for Legionella negative. Urine positive for Streptococcus pneumonia. Sputum culture showing normal respiratory mushtaq. Continue supplemental oxygen to maintain O2 at or above 90%. Aspiration precautions. Speech therapy consult. Speech therapy recommending patient remain NPO. MBS today. Blood cultures positive for staph aureus, suspected contamination. Leukocytosis improving. No other evidence of sepsis. Afebrile. No tachycardia. No hypotension. On baseline 2 L of oxygen. Continue PEG tube feeding per dietitian recommendations. 2. Chronic hypoxic respiratory failure-chronically wears 2 L nasal cannula at baseline. Continue supplemental oxygen to maintain O2 at or above 90%. 3. Chronic anemia-recent acute blood loss anemia secondary to acute upper GI bleed as a result of gastritis and esophageal stricture. EGD was completed at that time which showed gastric ulcers with clot suggestive of erosion from prior feeding tube. Feeding tube was replaced during that visit. Continue PPI. Previously on iron supplementation which she has no longer taking. Recommend adding iron 325 mg twice daily. Monitor CBC. 4. Chronic dysphagia secondary to esophageal stricture as a result of prior throat cancer and radiation therapy-n.p.o. Consult speech therapy. Recent barium swallow at [facility] as noted above. 5. Bilateral conjunctivitis-Erythromycin ointment and cipro eye drops. 6. Oral mucositis-secondary to chronic n.p.o. status. Oral care Q2 hours. 7. Chronic adrenal insufficiency-continue home Florinef regimen. 8. Hypothyroidism-continue home Synthroid regimen. 9. GERD-continue PPI. 10. Depression-continue home duloxetine, buspirone regimen. 11. Severe protein calorie malnutrition-BMI 15.7. Consult nutrition. DVT prophylaxis-Lovenox subcu. Discharge planning: Physical therapy recommending further skilled therapy. Patient refused. Will discharged with previous home health services. Anticipate discharge tomorrow if continued improvement. This patient was seen by [facility] Chamberlain under the supervision of Dr. Tariq. <Any Tariq E - Last Filed: 08/18/17 13:46> - Physical Exam Vital Signs Temp Pulse Resp BP Pulse Ox 98.1 F 88 16 103/64 94 08/18/17 08:59 08/18/17 11:13 08/18/17 11:07 08/18/17 08:59 08/18/17 08:59 Oxygen Flow Rate (L/min) 1 Oxygen Delivery Method Nasal Cannula Weight: 111 lb 5.335 oz Body Mass Index (BMI) 15.0 Intake and Output for Last 24 Hours 08/16/17 08/17/17 08/18/17 23:59 23:59 23:59 Intake Total 840 / 840 2610 / 2610 3091.6 / 3091.6 Balance 840 / 840 2610 / 2610 3091.6 / 3091.6 Microbiology Past 72 Hours 08/17/17 17:00 Gram Stain - Final Sputum, Expectorated/Coughed Respiratory Culture - Preliminary Appears to be normal respiratory mushtaq. Further studies to follow. Laboratory Tests Past 24 Hrs 08/17/17 08/18/17 08/18/17 16:42 07:30 07:30 WBC 18.4 H RBC 3.27 L Hgb 9.5 L Hct 29.3 L MCV 89.6 MCH 29.1 MCHC 32.4 RDW 16.0 H RDW Differential 52.4 H Plt Count 332 MPV 8.6 Sodium Potassium Chloride Carbon Dioxide Anion Gap BUN Creatinine Estim Creat Clear Calc Est GFR (MDRD) Af Amer Est GFR (MDRD) Non-Af BUN/Creatinine Ratio Glucose Calcium Vancomycin Trough 8.6 Blood Type Cancelled Antibody Screen Cancelled 08/18/17 07:30 WBC RBC Hgb Hct MCV MCH MCHC RDW RDW Differential Plt Count MPV Sodium 137 Potassium 3.1 L Chloride 102 Carbon Dioxide 29.0 Anion Gap 6 BUN 20 H Creatinine 0.72 Estim Creat Clear Calc 49.80 Est GFR (MDRD) Af Amer 139 Est GFR (MDRD) Non-Af 115 BUN/Creatinine Ratio 27.7 H Glucose 181 H Calcium 7.8 L Vancomycin Trough Blood Type Antibody Screen Assessment/Plan Hospitalist note: I am seeing this patient in conjunction with Constance Medrano. I independently seen and examined the patient. Progress note above reviewed and I agree with above treatment plan. Patient seen and examined today. He is alert and oriented ?3. He continued to have some shortness of breath . His vital signs are stable, pulse ox is maintained on 1 L of oxygen. - Physical Exam General: Alert, oriented ?3, mild shortness of breath, cachectic. HEENT: Atraumatic, PERRLA, EOMI. Neck: Supple, No JVD, Negative Carotid Bruits, Trachea Midline, Thyroid Normal. Lungs: Decreased breath sounds bilaterally, bronchial breathing on the whole right lung, rhonchi, transmitted sounds and coarse crackles in the right side. Cardiovascular: Regular rate, Regular Rhythm, Normal S1, Normal S2, PMI Normal. Abdomen: Bowel Sounds Present, Soft, Non Tender, Non-Distended, No Hepato-splenomegaly, PEG tube in place.. Extremities: No clubbing, No cyanosis, No edema Skin: No rashes, No breakdown Neurological: Cranial nerves are intact, moving all limbs. Assessment and plan: #1 recurrent aspiration versus healthcare associated pneumonia/sepsis: He is on IV Zosyn and vancomycin. He has been afebrile, white blood cell count continued to drop. He has been maintaining his pulse ox at 94% on 4 L.. Blood cultures revealed staph aureus, final is pending. Sputum culture revealed mixed normal respiratory mushtaq. Pneumococcal antigen was positive. And Legionella antigen is negative. He was kept on n.p.o., speech therapy is managing. Plan to continue same treatment, monitor blood and sputum cultures. #2 recent history of acute on chronic anemia secondary to GI bleed: He is on IV Protonix. At this time, no evidence of GI bleed. Patient had upper EGD recently at outside facility, found to have gastric ulcers, PEG tube was replaced. He has been on iron supplement. Today's hemoglobin is 9.5 g/dL, stable. #3 staphylococcal bacteremia: Source is unclear. Could be due to the aspiration pneumonia. Final cultures pending. He is on IV Zosyn and vancomycin. #4 bilateral purulent conjunctivitis: He is on erythromycin ointment and Cipro eyedrops. #5 other chronic medical problems: Continue current medications as above. This note was generated with [employer] dictation software. It may contain incorrect words, spelling, and punctuation that were not noted in checking the note before signing. Code Visit Inpatient E&M: 96787 Subs Hosp L2
--- NOTE | 2017-08-18 11:39 | PN_ITS ---
<Constance Medrano - Last Filed: 08/18/17 11:39> Patient Problems: Active and Suspected Problems Aspiration pneumonia (Acute) Acute delirium (Acute) Sepsis (Acute) Subjective: Patient seen and examined. More alert and appropriate this morning. Physical therapy recommending further skilled therapy. Patient refuses fdc. Girlfriend at bedside states that she can manage his care at home. Patient states he continues to have some increased shortness of breath. Requesting his oxygen be turned up. Denies other complaints. To undergo swallow study with speech therapy today. - Physical Exam General: Alert, Oriented x3, Cooperative HEENT: - - Bilateral conjunctivae erythema and purulent drainage improved. Oral: Dry Mucosa, Ulcerations Present Neck: Supple, No JVD, Negative Carotid Bruits Lungs: Clear to auscultation, Diminished Cardiovascular: Regular rate, Regular Rhythm, Normal S1, Normal S2, No murmurs Abdomen: Bowel Sounds Present, Soft, Non Tender, Non-Distended, - - PEG tube Extremities: No clubbing, No cyanosis, No edema, Capillary Refill Less than 3 Seconds Skin: No rashes, No breakdown Musculoskeletal: No Tenderness to Palpation of Joints or Extremities Neurological: Cranial nerves II-XII grossly intact, Neuro grossly intact Psych/Mental Status: Normal Affect, Appropriate Vital Signs Temp Pulse Resp BP Pulse Ox 98.1 F 82 16 103/64 94 08/18/17 08:59 08/18/17 08:59 08/18/17 08:59 08/18/17 08:59 08/18/17 08:59 Oxygen Flow Rate (L/min) 1 Oxygen Delivery Method Nasal Cannula Weight: 50.5 kg Body Mass Index (BMI) 15.0 Intake and Output for Last 24 Hours 08/16/17 08/17/17 08/18/17 23:59 23:59 23:59 Intake Total 840 / 840 2610 / 2610 2466.6 / 2466.6 Balance 840 / 840 2610 / 2610 2466.6 / 2466.6 Microbiology Past 72 Hours 08/17/17 17:00 Gram Stain - Final Sputum, Expectorated/Coughed Respiratory Culture - Preliminary Appears to be normal respiratory mushtaq. Further studies to follow. Laboratory Tests Past 24 Hrs 08/17/17 08/18/17 08/18/17 16:42 07:30 07:30 WBC 18.4 H RBC 3.27 L Hgb 9.5 L Hct 29.3 L MCV 89.6 MCH 29.1 MCHC 32.4 RDW 16.0 H RDW Differential 52.4 H Plt Count 332 MPV 8.6 Sodium Potassium Chloride Carbon Dioxide Anion Gap BUN Creatinine Estim Creat Clear Calc Est GFR (MDRD) Af Amer Est GFR (MDRD) Non-Af BUN/Creatinine Ratio Glucose Calcium Vancomycin Trough 8.6 Blood Type Cancelled Antibody Screen Cancelled 08/18/17 07:30 WBC RBC Hgb Hct MCV MCH MCHC RDW RDW Differential Plt Count MPV Sodium 137 Potassium 3.1 L Chloride 102 Carbon Dioxide 29.0 Anion Gap 6 BUN 20 H Creatinine 0.72 Estim Creat Clear Calc 49.80 Est GFR (MDRD) Af Amer 139 Est GFR (MDRD) Non-Af 115 BUN/Creatinine Ratio 27.7 H Glucose 181 H Calcium 7.8 L Vancomycin Trough Blood Type Antibody Screen Medical Necessity - Tobacco Use Smoking Status: Former smoker Assessment/Plan Active and Suspected Problems Aspiration pneumonia (Acute) Acute delirium (Acute) Sepsis (Acute) 1. Acute streptococcus pneumonia, recurrent aspiration pneumonia vs hospital acquired pneumonia-Recently hospitalized treated end of July 2017 for pneumonia due to aspiration, septic shock and iron deficiency anemia secondary to gastrointestinal hemorrhage. Patient underwent modified barium swallow 2017 at [facility] which showed aspiration of nectar and thin consistency barium. He was discharged on Augmentin for 10 days of therapy. Patient has a history of noncompliance with recommended n.p.o. status. He has chronic dysphagia secondary to esophageal stricture as a result of history of throat cancer and radiation. Palliative care was discussed with patient during recent admission at [facility] and patient declined. More suspicious for aspiration pneumonia as opposed to hospital-acquired pneumonia. IV Zosyn and IV Vanc. IS/ PEP. Urine for Legionella negative. Urine positive for Streptococcus pneumonia. Sputum culture showing normal respiratory mushtaq. Continue supplemental oxygen to maintain O2 at or above 90%. Aspiration precautions. Speech therapy consult. Speech therapy recommending patient remain NPO. MBS today. Blood cultures positive for staph aureus, suspected contamination. Leukocytosis improving. No other evidence of sepsis. Afebrile. No tachycardia. No hypotension. On baseline 2 L of oxygen. Continue PEG tube feeding per dietitian recommendations. 2. Chronic hypoxic respiratory failure-chronically wears 2 L nasal cannula at baseline. Continue supplemental oxygen to maintain O2 at or above 90%. 3. Chronic anemia-recent acute blood loss anemia secondary to acute upper GI bleed as a result of gastritis and esophageal stricture. EGD was completed at that time which showed gastric ulcers with clot suggestive of erosion from prior feeding tube. Feeding tube was replaced during that visit. Continue PPI. Previously on iron supplementation which she has no longer taking. Recommend adding iron 325 mg twice daily. Monitor CBC. 4. Chronic dysphagia secondary to esophageal stricture as a result of prior throat cancer and radiation therapy-n.p.o. Consult speech therapy. Recent barium swallow at [facility] as noted above. 5. Bilateral conjunctivitis-Erythromycin ointment and cipro eye drops. 6. Oral mucositis-secondary to chronic n.p.o. status. Oral care Q2 hours. 7. Chronic adrenal insufficiency-continue home Florinef regimen. 8. Hypothyroidism-continue home Synthroid regimen. 9. GERD-continue PPI. 10. Depression-continue home duloxetine, buspirone regimen. 11. Severe protein calorie malnutrition-BMI 15.7. Consult nutrition. DVT prophylaxis-Lovenox subcu. Discharge planning: Physical therapy recommending further skilled therapy. Patient refused. Will discharged with previous home health services. Anticipate discharge tomorrow if continued improvement. This patient was seen by [facility]lain under the supervision of Dr. Tariq. <Any Tariq E - Last Filed: 08/18/17 13:46> - Physical Exam Vital Signs Temp Pulse Resp BP Pulse Ox 98.1 F 88 16 103/64 94 08/18/17 08:59 08/18/17 11:13 08/18/17 11:07 08/18/17 08:59 08/18/17 08:59 Oxygen Flow Rate (L/min) 1 Oxygen Delivery Method Nasal Cannula Weight: 111 lb 5.335 oz Body Mass Index (BMI) 15.0 Intake and Output for Last 24 Hours 08/16/17 08/17/17 08/18/17 23:59 23:59 23:59 Intake Total 840 / 840 2610 / 2610 3091.6 / 3091.6 Balance 840 / 840 2610 / 2610 3091.6 / 3091.6 Microbiology Past 72 Hours 08/17/17 17:00 Gram Stain - Final Sputum, Expectorated/Coughed Respiratory Culture - Preliminary Appears to be normal respiratory mushtaq. Further studies to follow. Laboratory Tests Past 24 Hrs 08/17/17 08/18/17 08/18/17 16:42 07:30 07:30 WBC 18.4 H RBC 3.27 L Hgb 9.5 L Hct 29.3 L MCV 89.6 MCH 29.1 MCHC 32.4 RDW 16.0 H RDW Differential 52.4 H Plt Count 332 MPV 8.6 Sodium Potassium Chloride Carbon Dioxide Anion Gap BUN Creatinine Estim Creat Clear Calc Est GFR (MDRD) Af Amer Est GFR (MDRD) Non-Af BUN/Creatinine Ratio Glucose Calcium Vancomycin Trough 8.6 Blood Type Cancelled Antibody Screen Cancelled 08/18/17 07:30 WBC RBC Hgb Hct MCV MCH MCHC RDW RDW Differential Plt Count MPV Sodium 137 Potassium 3.1 L Chloride 102 Carbon Dioxide 29.0 Anion Gap 6 BUN 20 H Creatinine 0.72 Estim Creat Clear Calc 49.80 Est GFR (MDRD) Af Amer 139 Est GFR (MDRD) Non-Af 115 BUN/Creatinine Ratio 27.7 H Glucose 181 H Calcium 7.8 L Vancomycin Trough Blood Type Antibody Screen Assessment/Plan Hospitalist note: I am seeing this patient in conjunction with Constance Medrano. I independently seen and examined the patient. Progress note above reviewed and I agree with above treatment plan. Patient seen and examined today. He is alert and oriented ?3. He continued to have some shortness of breath . His vital signs are stable, pulse ox is maintained on 1 L of oxygen. - Physical Exam General: Alert, oriented ?3, mild shortness of breath, cachectic. HEENT: Atraumatic, PERRLA, EOMI. Neck: Supple, No JVD, Negative Carotid Bruits, Trachea Midline, Thyroid Normal. Lungs: Decreased breath sounds bilaterally, bronchial breathing on the whole right lung, rhonchi, transmitted sounds and coarse crackles in the right side. Cardiovascular: Regular rate, Regular Rhythm, Normal S1, Normal S2, PMI Normal. Abdomen: Bowel Sounds Present, Soft, Non Tender, Non-Distended, No Hepato- splenomegaly, PEG tube in place.. Extremities: No clubbing, No cyanosis, No edema Skin: No rashes, No breakdown Neurological: Cranial nerves are intact, moving all limbs. Assessment and plan: #1 recurrent aspiration versus healthcare associated pneumonia/sepsis: He is on IV Zosyn and vancomycin. He has been afebrile, white blood cell count continued to drop. He has been maintaining his pulse ox at 94% on 4 L.. Blood cultures revealed staph aureus, final is pending. Sputum culture revealed mixed normal respiratory mushtaq. Pneumococcal antigen was positive. And Legionella antigen is negative. He was kept on n.p.o., speech therapy is managing. Plan to continue same treatment, monitor blood and sputum cultures. #2 recent history of acute on chronic anemia secondary to GI bleed: He is on IV Protonix. At this time, no evidence of GI bleed. Patient had upper EGD recently at outside facility, found to have gastric ulcers, PEG tube was replaced. He has been on iron supplement. Today's hemoglobin is 9.5 g/dL, stable. #3 staphylococcal bacteremia: Source is unclear. Could be due to the aspiration pneumonia. Final cultures pending. He is on IV Zosyn and vancomycin. #4 bilateral purulent conjunctivitis: He is on erythromycin ointment and Cipro eyedrops. #5 other chronic medical problems: Continue current medications as above. This note was generated with [employer] dictation software. It may contain incorrect words, spelling, and punctuation that were not noted in checking the note before signing. Code Visit Inpatient E&M: 47386 Subs Hosp L2
--- NOTE | 2017-08-18 12:32 | PCM.RX.CS ---
Consult Pharmacy has been consulted to manage selected antiobiotic: Vancomycin Type of Consult: Follow-up Suspected Infection: Pneumonia, Bacteremia Prior Doses of Antibiotics Received/Current Regimen: Medications Vancomycin HCl () 500 mg in 100 mls @ 100 mls/hr IV Q12H KULDEEP Last Admin: 08/18/17 08:15 Dose: 100 mls/hr Labs: Sodium 137 mmol/L (136-145) 08/18/17 07:30 Potassium 3.1 mmol/L (3.5-5.1) L 08/18/17 07:30 Chloride 102 mmol/L (98-107) 08/18/17 07:30 Carbon Dioxide 29.0 mmol/L (21.0-32.0) 08/18/17 07:30 Anion Gap 6 (5-15) 08/18/17 07:30 BUN 20 mg/dL (7-18) H 08/18/17 07:30 Creatinine 0.72 mg/dL (0.70-1.30) 08/18/17 07:30 Est GFR (MDRD) Af Amer 139 mL/min (>60) 08/18/17 07:30 Est GFR (MDRD) Non-Af 115 mL/min (>60) 08/18/17 07:30 BUN/Creatinine Ratio 27.7 RATIO (10-20) H 08/18/17 07:30 Glucose 181 mg/dL (74-106) H 08/18/17 07:30 Vancomycin Trough 8.6 ug/mL (5.0-15.0) 08/18/17 07:30 Microbiology: Microbiology 08/17/17 17:00 Sputum, Expectorated/Coughed Gram Stain - Final 08/17/17 17:00 Sputum, Expectorated/Coughed Respiratory Culture - Preliminary Appears to be normal respiratory mushtaq. Further studies to follow. Weight used for dosin kg Estimated Creatinine Clearance: 49 mL/min Goal Trough: 15-20 mcg/mL Pharmacy Plan for Drug Dosing: Vancomycin trough below goal. Renal function has improved since vancomycin started, patient now with S aureus in blood culture. Culture is anaerobic bottle so no Verigene today. Recommend to increase vancomycin to 500mg IV q8h for easier administration with pip/tazo vs vanco at a higher dose q12h. Check trough Wednesday if still active. Pharmacy Service will continue to monitor and adjust dosing as required. Follow-Up Labs: Trough Vancomycin - 08/20/17 @ 1000
--- NOTE | 2017-08-18 13:46 | CASEMGMT ---
Patient's granddaughter came to [facility]. SW was asked to go to the room. SW met with patient. Patient's granddaughter and her significant other and patient's significant other were also present. SW explained healthcare POA and patient's granddaughter said she is not okay with that. SW asked patient who he wants to be his healthcare POA. He pointed to his granddaughter, Marva. He then looked at Norah, his significant other and asked if this was okay and she was fine. SW again asked him who he wanted and he wants his granddaughter Zo. SW asked him if he needed a guardian who he would like to name. He said he would like Marva for both. SW completed a new page for all of the documents naming Marva as his healthcare POA and guardian. Copies made and given to patient along with one in the chart. SW does plan on talking with patient alone once he is alone to make sure he is okay with above. Marta MATTSON MSW
[2017-08-18] MEDS: Mirtazapine 15 MG Tablet GT (22:41)
[2017-08-18] MEDS: Jevity 1.5 1,000 ML 30 ML GT (23:48)
[2017-08-19] VITALS (9 sets, daily range): BP systolic 112–129; BP diastolic 60–79; PULSE 69–82; RESP 16–20; TEMP 36.6; O2SAT 93–96
[2017-08-19] MEDS: 0.9% Normal Saline 1,000 ML 100 ML IV (02:32)
[2017-08-19] MEDS: Ciprofloxacin 0.3% 2.5ml Bottle 1 DRP EACH EYE ×4 (02:33→13:33)
[2017-08-19] MEDS: Ipratropium/Albuterol Sulfate 3 ML AMPUL.NEB INHALATION ×4 (04:11→15:23)
[2017-08-19] MEDS: Hydrocortisone Sod Succinate 100 MG/2 ML Vial 50 MG IV (05:49)
[2017-08-19] MEDS: Piperacil/Tazobactam 3.375 GM/50 ML ML IV (05:49)
[2017-08-19] MEDS: Levothyroxine 150 MCG Tablet GT (05:49)
[2017-08-19 06:33] LABS: Hemoglobin 8.8 g/dl (13.0-16.5); Mean Corp Hgb Conc 32.6 g/gl (32-36); Mean Corpuscular Hgb 29.4 pg (27.0-32.0); Mean Corpuscular Volume 90.3 fL (80-94); Mean Platelet Vol. 8.7 fl (6.2-12.0); Platelet Count 346 K/mm3 (150-450); RBC Distribution Width CV 16.1 % (11.6-14.6); RBC Distribution Width SD 52.7 fl (35.1-43.9); Red Blood Count 2.99 M/mm3 (4.6-6.2); White Blood Count 15.1 K/mm3 (4.4-11.0)
[2017-08-19 06:38] LABS: Scan Indicated on CBC? Y/N NO
[2017-08-19 06:41] LABS: Anion Gap 8 (5-15); BUN 16 mg/dL (7-18); BUN/Creat Ratio 23.4 RATIO (10-20); Calcium,Total 7.5 mg/dL (8.5-10.1); Chloride 106 mmol/L (98-107); Creatinine, Serum 0.68 mg/dL (0.70-1.30); EST Glomerular Filtration Rate 122 mL/min (>60); Est Glom Filt Rate - Afr Amer 148 mL/min (>60); Glucose 131 mg/dL (74-106); Potassium 3.2 mmol/L (3.5-5.1); Sodium Level 140 mmol/L (136-145)
[2017-08-19] MEDS: Ferrous Sulfate 300 MG/5 ML UDC 325 MG PO (08:15)
[2017-08-19] MEDS: busPIRone 5 MG Tablet 10 MG GT (08:15)
[2017-08-19] MEDS: Folic Acid 1 MG Tablet 0.5 MG GT (08:15)
[2017-08-19] MEDS: Gabapentin 800 MG Tablet GT ×2 (08:15→13:32)
[2017-08-19] MEDS: Erythromycin Base 1 OPTH.TUBE 1 APPLIC EACH EYE (08:16)
[2017-08-19] MEDS: Fluticasone 0.05% 1 SPRAY NASAL.SRY NASAL (08:17)
[2017-08-19 09:12] LABS: Magnesium 1.7 mg/dL (1.6-2.6); Phosphorus 1.7 mg/dL (2.5-4.9)
[2017-08-19] MEDS: Enoxaparin 40 MG/0.4 ML Syringe SC (09:37)
[2017-08-19] MEDS: Fludrocortisone Acetate 0.1 MG Tablet PO (09:38)
--- NOTE | 2017-08-19 11:32 | PCM.PROGNOTE ---
<Neri Walter - Last Filed: 08/19/17 11:32> Patient Problems: Active and Suspected Problems MSSA bacteremia (Acute) Aspiration pneumonia (Acute) Acute delirium (Acute) Sepsis (Acute) Subjective: Pt resting comfortably in bed. Currently he is without symptoms. He denies cough, SOB, fevers chills or sweats overnight. Overall he feels that he is better and he wants to go home. However, he has had positive cultures with 1 of 4 blood cultures and his sputum culture with Staph aureus and urine antigen + for strep pneumo. I discussed with micro who indicated that this was likely not contaminant, and ID agrees. They will be consulted. - Physical Exam General: Alert, Oriented x3, Cooperative HEENT: Atraumatic, PERRLA, EOMI, Normocephalic Neck: Supple, No JVD, Negative Carotid Bruits Lungs: Clear to auscultation, Normal air movement, Rales - BL faint crackles Cardiovascular: Regular rate, No murmurs Abdomen: Bowel Sounds Present, Soft, Non Tender Extremities: No edema, Capillary Refill Less than 3 Seconds Skin: No rashes, No breakdown Musculoskeletal: No Tenderness to Palpation of Joints or Extremities Neurological: Cranial nerves II-XII grossly intact Psych/Mental Status: Normal Affect, Appropriate, Alert and oriented to time, place, person, mood and affect Vital Signs Temp Pulse Resp BP Pulse Ox 97.9 F 69 18 112/60 96 08/19/17 10:35 08/19/17 11:15 08/19/17 11:15 08/19/17 10:35 08/19/17 10:35 Oxygen Flow Rate (L/min) 1.5 Oxygen Delivery Method Nasal Cannula Weight: 50.5 kg Body Mass Index (BMI) 15.0 Intake and Output for Last 24 Hours 08/17/17 08/18/17 08/19/17 23:59 23:59 23:59 Intake Total 2610 / 2610 6336.6 / 6336.6 1150.9 / 1150.9 Balance 2610 / 2610 6336.6 / 6336.6 1150.9 / 1150.9 Microbiology Past 72 Hours 08/17/17 17:00 Gram Stain - Final Sputum, Expectorated/Coughed Respiratory Culture - Preliminary Staphylococcus species Laboratory Tests Past 24 Hrs 08/19/17 08/19/1708/19/18 05:25 05:25 05:25 WBC 15.1 H RBC 2.99 L Hgb 8.8 L Hct 27.0 L MCV 90.3 MCH 29.4 MCHC 32.6 RDW 16.1 H RDW Differential 52.7 H Plt Count 346 MPV 8.7 Sodium 140 Potassium 3.2 L Chloride 106 Carbon Dioxide 26.0 Anion Gap 8 BUN 16 Creatinine 0.68 L Estim Creat Clear Calc 49.80 Est GFR (MDRD) Af Amer 148 Est GFR (MDRD) Non-Af 122 BUN/Creatinine Ratio 23.4 H Glucose 131 H Calcium 7.5 L Phosphorus 1.7 L Magnesium 1.7 Medical Necessity - Tobacco Use Smoking Status: Former smoker Assessment/Plan Active and Suspected Problems MSSA bacteremia (Acute) Aspiration pneumonia (Acute) Acute delirium (Acute) Sepsis (Acute) 1. Acute bacteremia 2/2 BL aspiration pna 2/2 dysphagia - Sputum with staph and 1x blood culture with staph aureus susceptible to oxacillin. Repeat drawn. ID consulted. Strep urine antigen positive. Continue Zosyn. He is afebrile, white count is improving. Patient does have home oxygen. Overall he feels significantly improved. He is tolerating PEG feedings. For dysphasia we will add Pepcid twice daily, he cannot have Protonix through the PEG tube. 2. Dysphagia secondary to history of esophageal cancer/strictures-continue n.p.o., speech therapy, PEG feedings. 3. Hypokalemia-replete, check mag and phosphorus. 4. chronic hypoxic respiratory failure-chronically on 2 L at home. Currently stable on these numbers 5. Bilateral conjunctivitis-continue with erythromycin ointment and Cipro eyedrops. 6. Severe protein calorie malnutrition-dietary eval. 7. Hypothyroidism-continue Synthroid 8. GERD-twice daily Pepcid 9. Chronic adrenal insufficiency-changed IV Solu-Cortef to home dose of Florinef. 10. Depression-continue home medications 11. Debility - PTOT DVT prophylaxis: Lovenox Discharge planning: Patient unwilling to consider senior care, will return home with home healthcare services when appropriate. Awaiting repeat blood cultures for clearing. Awaiting ID final rec. This patient was seen by Neri Walter PA-C under the supervision of Doctor Tariq. <Any Tariq - Mikey Filed: 08/19/17 13:33> - Physical Exam Vital Signs Temp Pulse Resp BP Pulse Ox 97.9 F 69 18 112/60 96 08/19/17 10:35 08/19/17 11:15 08/19/17 11:15 08/19/17 10:35 08/19/17 10:35 Oxygen Flow Rate (L/min) 2 Oxygen Delivery Method Nasal Cannula Weight: 111 lb 5.335 oz Body Mass Index (BMI) 15.0 Intake and Output for Last 24 Hours 08/17/17 08/18/17 08/19/17 23:59 23:59 23:59 Intake Total 2610 / 2610 6336.6 / 6336.6 1635.9 / 1635.9 Balance 2610 / 2610 6336.6 / 6336.6 1635.9 / 1635.9 Microbiology Past 72 Hours 08/17/17 17:00 Gram Stain - Final Sputum, Expectorated/Coughed Respiratory Culture - Preliminary Staphylococcus species Laboratory Tests Past 24 Hrs 08/19/17 08/19/17 08/19/17 05:25 05:25 05:25 WBC 15.1 H RBC 2.99 L Hgb 8.8 L Hct 27.0 L MCV 90.3 MCH 29.4 MCHC 32.6 RDW 16.1 H RDW Differential 52.7 H Plt Count 346 MPV 8.7 Sodium 140 Potassium 3.2 L Chloride 106 Carbon Dioxide 26.0 Anion Gap 8 BUN 16 Creatinine 0.68 L Estim Creat Clear Calc 49.80 Est GFR (MDRD) Af Amer 148 Est GFR (MDRD) Non-Af 122 BUN/Creatinine Ratio 23.4 H Glucose 131 H Calcium 7.5 L Phosphorus 1.7 L Magnesium 1.7 Assessment/Plan Hospitalist note: I am seeing this patient in conjunction with Neri Walter. I independently seen and examined the patient. Progress note above reviewed and I agree with above treatment plan. Patient seen and examined today. He is alert and oriented ?3. Today, he denies any complaints. Wants to go home. His vital signs are stable, afebrile. - Physical Exam General: Alert, oriented ?3, mild shortness of breath, cachectic. HEENT: Atraumatic, PERRLA, EOMI. Neck: Supple, No JVD, Negative Carotid Bruits, Trachea Midline, Thyroid Normal. Lungs: Decreased breath sounds bilaterally, bronchial breathing on the whole right lung, rhonchi, transmitted sounds and coarse crackles in the right side. Cardiovascular: Regular rate, Regular Rhythm, Normal S1, Normal S2, PMI Normal. Abdomen: Bowel Sounds Present, Soft, Non Tender, Non-Distended, No Hepato-splenomegaly, PEG tube in place.. Extremities: No clubbing, No cyanosis, No edema Skin: No rashes, No breakdown Neurological: Cranial nerves are intact, moving all limbs. Assessment and plan: #1 recurrent aspiration versus healthcare associated pneumonia/sepsis: Started on IV cefazolin and Flagyl today by infectious disease. He has been afebrile, white blood cell count continued to drop. He has been maintaining his pulse ox at 94% on 1.5 L. Sputum culture revealed staph, final is pending. Pneumococcal antigen was positive. And Legionella antigen is negative. He was kept on n.p.o., speech therapy is managing. Plan to continue same treatment. #2 recent history of acute on chronic anemia secondary to GI bleed: He is on IV Protonix. At this time, no evidence of GI bleed. Patient had upper EGD recently at outside facility, found to have gastric ulcers, PEG tube was replaced. He has been on iron supplement. Today's hemoglobin is 8.8 g/dL, stable. No indication for transfusion. #3 MSSA bacteremia: Source is unclear. Could be due to the aspiration pneumonia. Blood pressure reviewed, which showed MSSA.. He is on IV cefazolin and Flagyl as above. Infectious disease consulted. #4 bilateral purulent conjunctivitis: He is on erythromycin ointment and Cipro eyedrops. #5 other chronic medical problems: Continue current medications as above. This note was generated with [employer] dictation software. It may contain incorrect words, spelling, and punctuation that were not noted in checking the note before signing. Code Visit Inpatient E&M: 12548 Subs Hosp L2
--- NOTE | 2017-08-19 12:22 | ECHOCS_ITS ---
Reason For Study: DYSPNEA Procedure This was a 2D Doppler, Color Flow transthoracic echocardiogram. Exam performed portable in patient room. Left Ventricle Normal LV size. Left ventricular systolic function is normal. The estimated ejection fraction is 60 %. No evidence for diastolic dysfunction. No regional wall motion abnormalities noted. Right Ventricle Normal RV size. Normal systolic function. Atria Normal left atrium. Normal right atrium. Mitral Valve Systolic anterior motion of the mitral valve. Mild (1+) eccentric mitral valve insufficiency. Tricuspid Valve Normal tricuspid valve. Mild tricuspid valve insufficiency. Pulmonary artery systolic pressure is 22 mmHg. Aortic Valve Normal aortic valve. Pulmonic Valve Normal pulmonic valve. Great Vessels Normal aortic root. The pulmonary artery is normal size. Normal inferior vena cava. Pericardium/Pleural No pericardial effusion. MMode/2D Measurements & Calculations LVIDd: 4.2 cm IVSd: 0.86 cm Ao root diam: 3.4 cm LVIDs: 3.2 cm LVPWd: 0.82 cm RVDd: 3.7 cm FS: 24.8 % LAV(MOD-bp): 43.4 ml LA A4 area: 14.1 cm2 RA A4 area: 12.5 cm2 LAV(MOD-bp) Indexed: 26.1 ml/m2 LAV(MOD-sp2): 56.4 ml LAV(MOD-sp4): 32.4 ml Doppler Measurements & Calculations MV E max viktor: 63.5 cm/sec Lat Peak E' Viktor: 11.3 cm/sec Med Peak E' Viktor: 9.5 cm/sec E/E' lat: 5.6 E/E' med: 6.7 Ao V2 max: 112.1 cm/sec LV V1 max: 103.5 cm/sec PA V2 max: 84.5 cm/sec Ao max P.0 mmHg LV V1 max P.3 mmHg TR max viktor: 217.2 cm/sec TR max P.0 mmHg Interpretation Summary Normal LV size. Left ventricular systolic function is normal. The estimated ejection fraction is 60 %. No evidence for diastolic dysfunction. Mild (1+) eccentric mitral valve insufficiency. Pulmonary artery systolic pressure is 22 mmHg. Ordering Physician: Ruy Hilton Referring Physician: DENISE RICHARDS Performed By: Anne-Marie Davis, RDCS, RVT
--- NOTE | 2017-08-19 12:23 | PCM.HP.ID ---
Problem List (1) MSSA bacteremia Status: Acute Reason for Consult: (+) bcx Consulted by: Dr. Tariq History of Present Illness: The patient is a 67 year old M with h/o throat cancer who presented 08/16 with several days of not feeling well, fever, SOB. Has recurrent aspiration. Came to ED, cxs drawn, started vanc/zosyn. Single bcx now with mssa. Vanc stopped. Feeling better, insists on going home due to need to go to doctor's appts and grocery shopping. No new joint pain or back pain. No further fever. No issues at PEG site. Full ROS performed and neg except as noted above. - Medical History Past Medical History (Chronic Problems): Chronic Problems Status post insertion of percutaneous endoscopic gastrostomy (PEG) tube (Chronic) GERD (gastroesophageal reflux disease) (Chronic) Hypothyroidism (Chronic) Depression (Chronic) History of throat cancer (Chronic) Dysphagia (Chronic) Allergies/Adverse Reactions: Allergies No Known Allergies Allergy (Verified 02/09/17 14:11) Home Medications: Ambulatory Orders Medication Instructions Recorded Ascorbic Acid [Vitamin C] 500 mg GT DAILY@0800 08/16/17 Buspirone HCl 10 mg GT DAILY 08/16/17 Calcium Carbonate [Calcium] 600 mg GT DAILY 08/16/17 Duloxetine HCl 60 mg GT DAILY 08/16/17 Fludrocortisone Acetate [Florinef] 0.1 mg GT DAILY@0800 08/16/17 Fluticasone 0.05% [Flonase Nasal 1 spray NASAL DAILY 08/16/17 [place]] Folic Acid 0.4 mg GT DAILY@0800 08/16/17 Gabapentin [Neurontin] 800 mg GT TIDCM 08/16/17 Ipratropium/Albuterol Sulfate 3 ml INHALATION Q4H.RT 08/16/17 [Duoneb] Levothyroxine Sodium [Levoxyl] 150 mcg GT DAILY 08/16/17 Meclizine HCl 25 mg GT DAILY PRN PRN 08/16/17 Mirtazapine [Remeron] 15 mg GT QHS 08/16/17 Omeprazole [Prilosec] 20 mg GT DAILY 08/16/17 Tramadol HCl [Ultram] 50 mg GT DAILY PRN PRN 08/16/17 Vital Signs Temp Pulse Resp BP Pulse Ox 97.9 F 69 18 112/60 96 08/19/17 10:35 08/19/17 11:15 08/19/17 11:15 08/19/17 10:35 08/19/17 10:35 Oxygen Flow Rate (L/min) 2 Oxygen Delivery Method Nasal Cannula Weight: 50.5 kg Body Mass Index (BMI) 15.0 Microbiology Past 72 Hours 08/17/17 17:00 Gram Stain - Final Sputum, Expectorated/Coughed Respiratory Culture - Preliminary Staphylococcus species Laboratory Tests Past 24 Hrs 08/19/17 08/19/17 08/19/17 05:25 05:25 05:25 WBC 15.1 H RBC 2.99 L Hgb 8.8 L Hct 27.0 L MCV 90.3 MCH 29.4 MCHC 32.6 RDW 16.1 H RDW Differential 52.7 H Plt Count 346 MPV 8.7 Sodium 140 Potassium 3.2 L Chloride 106 Carbon Dioxide 26.0 Anion Gap 8 BUN 16 Creatinine 0.68 L Estim Creat Clear Calc 49.80 Est GFR (MDRD) Af Amer 148 Est GFR (MDRD) Non-Af 122 BUN/Creatinine Ratio 23.4 H Glucose 131 H Calcium 7.5 L Phosphorus 1.7 L Magnesium 1.7 - Other Studies Radiology: [] reviewed Other Studies: [] Route of nutrition/ use of supplements: [] Nutritional Intake: [] IV Site: [] Rodriguez Catheter: [] - Physical Exam General: Alert, Oriented x3, Cooperative, No apparent distress HEENT: Atraumatic, PERRLA, EOMI Neck: Supple, No Nodes Lungs: Diminished Cardiovascular: Regular rate, Regular Rhythm Abdomen: Bowel Sounds Present, Soft, Non Tender, Non-Distended, - - PEG with no inflammation Extremities: No edema Skin: No rashes, - - No splinter hemorrhages/janeway/osler on hands IV Site: Peripheral, without redness Musculoskeletal: No Tenderness to Palpation of Joints or Extremities Neurological: Cranial nerves II-XII grossly intact - Assessment/Plan Antibiotics: [] Assessment/Plan: [] Active and Suspected Problems Aspiration pneumonia (Acute) Acute delirium (Acute) Sepsis (Acute) MSSA bacteremia - repeat bcx today. Will order echo. Normal treatment is 2-6 weeks of iv abx. No sign of endocarditis on exam. Sputum also with staph aureus. Narrow zosyn to cefazolin/flagyl. aspiration pneumonia - abx as above Thank you, will follow. D/w disease case manager rn and primary team.
[2017-08-19] MEDS: Cefazolin 2 GM in 0.9% Normal Saline 100 ML IV (13:32)
[2017-08-19] MEDS: Na Biphos/Potassium Phosphate PACKET 1 PACKET GT (13:32)
[2017-08-19] MEDS: metroNIDAZOLE 500 MG Tablet PO (15:04)
--- NOTE | 2017-08-19 16:07 | NURSING ---
pt wating to leave hospital, this nurse entered room and educated pt on reason for staying and treatments. pt aware and wants to leave. this nurse texted MLAIK Walter, he is aware. entered pt room again and pt is dressed and pulling off heart monitor. encouraged pt to stay once more. pt aware and wants to leave.
--- NOTE | 2017-08-19 17:55 | PCM.DC.SUM ---
<Neri Walter - Last Filed: 08/19/17 17:55> Discharge Date and Diagnosis Date of Admission: 08/16/17 Date of Discharge: 08/19/17 - Primary Discharge Diagnosis Recurrent bilateral Aspiration pna strep and staph Bacteremia with staph aureus (MSSA) Dysphagia Esophageal CA with stricture Severe protein malnutrition Chronic hypoxic resp failure BL conjunctivitis Hypothyroidism GERD Chronic adrenal insufficiency Hypokalemia/Hypophosphatemia - Secondary Discharge Diagnosis Chronic Problems Status post insertion of percutaneous endoscopic gastrostomy (PEG) tube (Chronic) GERD (gastroesophageal reflux disease) (Chronic) Hypothyroidism (Chronic) Depression (Chronic) History of throat cancer (Chronic) Dysphagia (Chronic) Hospital Course and Treatment Imaging Results: 08/19/17 12:22 Echo Complete [ECHO] Routine : Interpretation Summary Normal LV size. Left ventricular systolic function is normal. The estimated ejection fraction is 60 %. No evidence for diastolic dysfunction. Mild (1+) eccentric mitral valve insufficiency. Pulmonary artery systolic pressure is [address]/Brain/Head without Contrast IMPRESSION: Chronic involutional changes of the brain. RAD/Chest PA and Lateral IMPRESSION: Bilateral pulmonary infiltrates worse in the right hemithorax as described. Radiographic follow-up is recommended. Consultations 08/16/17 17:44 Consult: Onc/Wound/production boring machine operator Routine Comment: Mouth sores. Lida - infectious disease Operations: None Procedures: 2-D Echocardiogram Summary of Care Provided: PE on day of discharge: See daily progress note. Hospital Course: The patient is a 67 year old M with a hx of esophageal cancer and strictures, on PEG tube feedings, protein calorie malnutrition, GERD, hypothyroidism, chronic adrenal insufficiency who presented to the hospital with confusion, cough, SOB, lethargy. He was found to have BL pna, significant leukocytosis, no fever. He was treated in july of this year as an inpatient for pna as well, so he was admitted on Vanc and Zosyn with concerns for HCAP. He was suspected to have aspiration pna with his severe dysphagia. It was also discovered that he was not using premixed diets, he was blending food and putting it down his peg tube. He had a negative CT of the brain. His confusion and breathing improved. He was doing much better, however blood cultures revealed MSSA. He also had + strep urinary antigen, and a sputum culture with staph. Infectious disease was consulted. Abx were deescalated to Zosyn. Repeat cultures were ordered and an echo was obtained. The patient became agitated, insisting on discharge home and insisting on being able to blend foods and put them into his PEG tube. We expressed our concern for his bacteremia and severe dysphagia and the importance of staying to receive IV abx and to follow his repeat blood cultures and further care as directed by ID. The patient decided he did not want to stay and left AGAINST MEDICAL ADVICE. [] Discharge Diet: - - pt left AMA Discharge Activity: - - pt left AMA Home Medications: Medications to take at Discharge Ascorbic Acid [Vitamin C] 500 mg GT DAILY@0800 08/16/17 Buspirone HCl 10 mg GT DAILY 08/16/17 Calcium Carbonate [Calcium] 600 mg GT DAILY 08/16/17 Duloxetine HCl 60 mg GT DAILY 08/16/17 Fludrocortisone Acetate [Florinef] 0.1 mg GT DAILY@0800 08/16/17 Fluticasone 0.05% [Flonase Nasal [place]] 1 spray NASAL DAILY 08/16/17 Folic Acid 0.4 mg GT DAILY@0800 08/16/17 Gabapentin [Neurontin] 800 mg GT TIDCM 08/16/17 Ipratropium/Albuterol Sulfate [Duoneb] 3 ml INHALATION Q4H.RT 08/16/17 Levothyroxine Sodium [Levoxyl] 150 mcg GT DAILY 08/16/17 Meclizine HCl 25 mg GT DAILY PRN PRN 08/16/17 Mirtazapine [Remeron] 15 mg GT QHS 08/16/17 Omeprazole [Prilosec] 20 mg GT DAILY 08/16/17 Tramadol HCl [Ultram] 50 mg GT DAILY PRN PRN 08/16/17 Primary Care Physician: NOT,DEFINED [NON-STAFF] - Additional Instructions: pt left AMA Disposition: Against Medical Advice Minutes spent on discharge:: 35 Patient Condition:: Guarded Medical Necessity - Tobacco Use Smoking Status: Former smoker Meaningful Use Info Meaningful Use Diagnoses (Choose all that apply): None applicable <Any Tariq - Last Filed: 08/20/17 11:57> Discharge Date and Diagnosis - Secondary Discharge Diagnosis Chronic Problems Status post insertion of percutaneous endoscopic gastrostomy (PEG) tube (Chronic) GERD (gastroesophageal reflux disease) (Chronic) Hypothyroidism (Chronic) Depression (Chronic) History of throat cancer (Chronic) Dysphagia (Chronic) Hospital Course and Treatment Consultations 08/16/17 17:44 Consult: Onc/Wound/production boring machine operator Routine Comment: Mouth sores. Summary of Care Provided: Hospitalist note: Discharge summary above reviewed and I agree with the above note. Patient was admitted for lethargy, confusion, cough and shortness of breath, found to have recurrent aspiration pneumonia versus healthcare associated pneumonia with sepsis as well as bacteremia. He was treated with the appropriate IV antibiotics. His blood culture revealed MSSA. Patient had a history of throat cancer and he has been having issues with dysphagia but she has not been compliant with strict n.p.o. He was treated appropriately, symptoms improved and his vital signs stabilized. His white blood cell count trended down. Because of the bacteremia, infectious disease consulted and recommended that patient may need treatment with IV antibiotics for extended period of time. Patient was informed that he does have pneumonia in addition to bacteria in his blood, bacteremia, and we have to treat this bacteremia with antibiotics probably IV antibiotics and might need longer time of treatment. Infectious disease consult but patient decided to leave the hospital AGAINST MEDICAL ADVICE. Code Visit Inpatient E&M: 48802 Disch Hosp
--- NOTE | 2017-08-19 18:05 | DS.PCM_ITS ---
<Neri Walter - Last Filed: 08/19/17 17:55> Discharge Date and Diagnosis Date of Admission: 08/16/17 Date of Discharge: 08/19/17 - Primary Discharge Diagnosis Recurrent bilateral Aspiration pna strep and staph Bacteremia with staph aureus (MSSA) Dysphagia Esophageal CA with stricture Severe protein malnutrition Chronic hypoxic resp failure BL conjunctivitis Hypothyroidism GERD Chronic adrenal insufficiency Hypokalemia/Hypophosphatemia - Secondary Discharge Diagnosis Chronic Problems Status post insertion of percutaneous endoscopic gastrostomy (PEG) tube (Chronic ) GERD (gastroesophageal reflux disease) (Chronic) Hypothyroidism (Chronic) Depression (Chronic) History of throat cancer (Chronic) Dysphagia (Chronic) Hospital Course and Treatment Imaging Results: 08/19/17 12:22 Echo Complete [ECHO] Routine : Interpretation Summary Normal LV size. Left ventricular systolic function is normal. The estimated ejection fraction is 60 %. No evidence for diastolic dysfunction. Mild (1+) eccentric mitral valve insufficiency. Pulmonary artery systolic pressure is [address]/Brain/Head without Contrast IMPRESSION: Chronic involutional changes of the brain. RAD/Chest PA and Lateral IMPRESSION: Bilateral pulmonary infiltrates worse in the right hemithorax as described. Radiographic follow-up is recommended. Consultations 08/16/17 17:44 Consult: Onc/Wound/shoe sewing machine operator and tender Routine Comment: Mouth sores. Lida - infectious disease Operations: None Procedures: 2-D Echocardiogram Summary of Care Provided: PE on day of discharge: See daily progress note. Hospital Course: The patient is a 67 year old M with a hx of esophageal cancer and strictures, on PEG tube feedings, protein calorie malnutrition, GERD, hypothyroidism, chronic adrenal insufficiency who presented to the hospital with confusion, cough, SOB, lethargy. He was found to have BL pna, significant leukocytosis, no fever. He was treated in july of this year as an inpatient for pna as well, so he was admitted on Vanc and Zosyn with concerns for HCAP. He was suspected to have aspiration pna with his severe dysphagia. It was also discovered that he was not using premixed diets, he was blending food and putting it down his peg tube. He had a negative CT of the brain. His confusion and breathing improved. He was doing much better, however blood cultures revealed MSSA. He also had + strep urinary antigen, and a sputum culture with staph. Infectious disease was consulted. Abx were deescalated to Zosyn. Repeat cultures were ordered and an echo was obtained. The patient became agitated, insisting on discharge home and insisting on being able to blend foods and put them into his PEG tube. We expressed our concern for his bacteremia and severe dysphagia and the importance of staying to receive IV abx and to follow his repeat blood cultures and further care as directed by ID. The patient decided he did not want to stay and left AGAINST MEDICAL ADVICE. [] Discharge Diet: - - pt left AMA Discharge Activity: - - pt left AMA Home Medications: Medications to take at Discharge Ascorbic Acid [Vitamin C] 500 mg GT DAILY@0800 08/16/17 Buspirone HCl 10 mg GT DAILY 08/16/17 Calcium Carbonate [Calcium] 600 mg GT DAILY 08/16/17 Duloxetine HCl 60 mg GT DAILY 08/16/17 Fludrocortisone Acetate [Florinef] 0.1 mg GT DAILY@0800 08/16/17 Fluticasone 0.05% [Flonase Nasal [place]] 1 spray NASAL DAILY 08/16/17 Folic Acid 0.4 mg GT DAILY@0800 08/16/17 Gabapentin [Neurontin] 800 mg GT TIDCM 08/16/17 Ipratropium/Albuterol Sulfate [Duoneb] 3 ml INHALATION Q4H.RT 08/16/17 Levothyroxine Sodium [Levoxyl] 150 mcg GT DAILY 08/16/17 Meclizine HCl 25 mg GT DAILY PRN PRN 08/16/17 Mirtazapine [Remeron] 15 mg GT QHS 08/16/17 Omeprazole [Prilosec] 20 mg GT DAILY 08/16/17 Tramadol HCl [Ultram] 50 mg GT DAILY PRN PRN 08/16/17 Primary Care Physician: NOT,DEFINED [NON-STAFF] - Additional Instructions: pt left AMA Disposition: Against Medical Advice Minutes spent on discharge:: 35 Patient Condition:: Guarded Medical Necessity - Tobacco Use Smoking Status: Former smoker Meaningful Use Info Meaningful Use Diagnoses (Choose all that apply): None applicable <Any Tariq - Last Filed: 08/20/17 11:57> Discharge Date and Diagnosis - Secondary Discharge Diagnosis Chronic Problems Status post insertion of percutaneous endoscopic gastrostomy (PEG) tube (Chronic ) GERD (gastroesophageal reflux disease) (Chronic) Hypothyroidism (Chronic) Depression (Chronic) History of throat cancer (Chronic) Dysphagia (Chronic) Hospital Course and Treatment Consultations 08/16/17 17:44 Consult: Onc/Wound/shoe sewing machine operator and tender Routine Comment: Mouth sores. Summary of Care Provided: Hospitalist note: Discharge summary above reviewed and I agree with the above note. Patient was admitted for lethargy, confusion, cough and shortness of breath, found to have recurrent aspiration pneumonia versus healthcare associated pneumonia with sepsis as well as bacteremia. He was treated with the appropriate IV antibiotics. His blood culture revealed MSSA. Patient had a history of throat cancer and he has been having issues with dysphagia but she has not been compliant with strict n.p.o. He was treated appropriately, symptoms improved and his vital signs stabilized. His white blood cell count trended down. Because of the bacteremia, infectious disease consulted and recommended that patient may need treatment with IV antibiotics for extended period of time. Patient was informed that he does have pneumonia in addition to bacteria in his blood, bacteremia, and we have to treat this bacteremia with antibiotics probably IV antibiotics and might need longer time of treatment. Infectious disease consult but patient decided to leave the hospital AGAINST MEDICAL ADVICE. Code Visit Inpatient E&M: 38409 Disch Hosp
== END 2017-08-19 16:13 | disposition left against medical advice (07) | DRG 871 ==
LOC: ED 15:44 → PCU 17:44
PROVIDERS: Nurse Practitioner Family; Physician Assistant; Admitting Provider Hospitalist; Emergency Provider Emergency Medicine; Family Provider Internal Medicine; PCP Internal Medicine; Visit Provider Hospitalist
DX: A41.9 Sepsis, unspecified organism (principal); J69.0 Pneumonitis due to inhalation of food and vomit; E43 Unspecified severe protein-calorie malnutrition; Z68.1 Body mass index [BMI] 19.9 or less, adult; J96.11 Chronic respiratory failure with hypoxia; E27.40 Unspecified adrenocortical insufficiency; K21.9 Gastro-esophageal reflux disease without esophagitis; B95.61 Methicillin susceptible Staphylococcus aureus infection as the cause of diseases classified elsewhere; E03.9 Hypothyroidism, unspecified; Z93.1 Gastrostomy status; F32.9 Major depressive disorder, single episode, unspecified; B95.5 Unspecified streptococcus as the cause of diseases classified elsewhere; R41.0 Disorientation, unspecified; R47.02 Dysphasia; Z85.01 Personal history of malignant neoplasm of esophagus; Z91.11 Patient's noncompliance with dietary regimen; Z87.891 Personal history of nicotine dependence; D50.0 Iron deficiency anemia secondary to blood loss (chronic); H10.9 Unspecified conjunctivitis; K12.30 Oral mucositis (ulcerative), unspecified; Z66 Do not resuscitate; E87.6 Hypokalemia
CPT/HCPCS: 36415; 70450; 71046; 80048; 80053; 80202; 81001; 83605; 83735; 83880; 84100; 84484; 85025; 85027; 87040; 87070; 87077; 87186; 87205; 87449; 92526; 93005; 93306; 94640; 97116; 97162; 97165; 97530; 97802; 99285; J7030; J7040; A4216; J0295

== ENCOUNTER 2017-09-12 01:05 | Inpatient (IN) | payer MEDICARE, SELFPAY ==
--- NOTE | 2017-09-12 01:05 | RAD_ITS ---
STUDY: X-RAY CHEST REASON FOR EXAM: Male, 67 years old. Shortness of breath TECHNIQUE: Frontal view COMPARISON: None. FINDINGS: There are bilateral perihilar and lower lobe infiltrates greater on the RIGHT. There is NO pleural effusion or pneumothorax. Normal size heart. Normal mediastinum and corona. Normal visualized pulmonary arteries. Normal visualized aortic arch and descending thoracic aorta. Normal visualized thoracic spine. There is an old healed fracture of the LEFT clavicle. There is no demonstrated abnormality of the visualized soft tissue structures of the upper abdomen. RAD/Chest 1 View (Portable) IMPRESSION: There are bilateral perihilar and lower lobe infiltrates greater on the RIGHT. There is NO pleural effusion or pneumothorax. Normal size heart. Electronically Signed: Roni Torres MD at 2:29 EDT , Service support ,
--- NOTE | 2017-09-12 04:00 | DT_ITS ---
This patient was seen during an EMR downtime September 06, 2017 - September 13, 2017. This patient may have a combination of paper and electronic documentation or all paper documentation. All documentation is viewable within the e-chart portion of [facility] for each patient visit.
--- NOTE | 2017-09-12 12:43 | EKG12_ITS ---
Test Reason : SOB Blood Pressure : / mmHG Vent. Rate : 103 BPM Atrial Rate : 103 BPM P-R Int : 162 ms QRS Dur : 096 ms QT Int : 338 ms P-R-T Axes : 068 -65 066 degrees QTc Int : 442 ms Sinus tachycardia Left anterior fascicular block Septal infarct , age undetermined Abnormal ECG Confirmed by LEAH PEDRO, BARBARA ([id number]), acquisition editor MICHAEL LEMOS ([id number]) on 09/15/2017 5:42:44 PM Referred By: KYMBERLY Confirmed By:BARBARA LYNN MD
--- NOTE | 2017-09-12 12:44 | EKG12_ITS ---
Test Reason : RHYTHM CHANGE Blood Pressure : / mmHG Vent. Rate : 103 BPM Atrial Rate : 103 BPM P-R Int : 158 ms QRS Dur : 096 ms QT Int : 334 ms P-R-T Axes : 059 -27 058 degrees QTc Int : 437 ms Sinus tachycardia Septal infarct , age undetermined Abnormal ECG When compared with ECG of 16-AUG-2017 13:13, No significant change was found Confirmed by LEAH PEDRO, BARBARA ([id number]), assistant film editor MICHAEL LEMOS ([id number]) on 09/16/2017 4:43:13 PM Referred By: RICHARD Confirmed By:BARBARA LYNN MD
[2017-09-12 12:54] LABS: M R Staph aureus DNA By PCR Negative (Negative); Probe Check PASS; Specimen Processing Control PASS
[2017-09-13] VITALS (7 sets, daily range): BP systolic 118–135; BP diastolic 70–90; PULSE 78–95; RESP 18–22; TEMP 36.6–37.2; O2SAT 93–95
[2017-09-13] MEDS: Piperacil/Tazobactam 3.375 GM Q8 PREMIX IV (06:00)
[2017-09-13] MEDS: Levothyroxine 150 MCG Tablet GT (06:00)
[2017-09-13] MEDS: Famotidine 20 MG Tablet GT (09:06)
[2017-09-13] MEDS: Fludrocortisone Acetate 0.1 MG Tablet GT (09:06)
[2017-09-13] MEDS: busPIRone 5 MG Tablet 10 MG GT (09:06)
[2017-09-13] MEDS: DULoxetine Hcl 60 MG Capsule PO (09:06)
[2017-09-13] MEDS: Enoxaparin 40 MG/0.4 ML Syringe SC (09:06)
--- NOTE | 2017-09-13 10:30 | PCM.PROGNOTE ---
Subjective: Patient is 67-year-old male who was admitted on 09/12/17 with a history of increased breathing difficulties, confusion, lethargy, and fever over the past 24 hours prior to arrival. He has been noncompliant with his n.p.o. status, has a history of oropharyngeal dysphagia with esophageal cancer and stricture requiring PEG tube placement. Left AMA on 08/19/17 despite the need for antibiotics and further care, fearful of requiring care home facility. The patient was seen and examined. Answering questions appropriately, is very cachectic, appears depressed. Denies any specific complaints. States he is feeling much better. He remains on 3 L of oxygen supplementation. Denies any cough or sputum production. Objective: No new lab work to review today. Blood culture ?1 showed mecA resistance marker, Staphylococcus epidermidis, second blood cultures pending. Previous blood and sputum culture from 08/16 showed staph aureus. Urine strep/Legionella positive for Streptococcus pneumonia. Previous admit: Echocardiogram completed on 08/19/17 showing normal LV size and function, estimated EF of 60%, no evidence of diastolic dysfunction, mild MVI, and RVSP estimated 22 mmHg. - Physical Exam General: Alert, Cooperative, No apparent distress, - - Cachectic HEENT: Atraumatic, Normocephalic Oral: Moist Mucosa, Ulcerations Present Neck: Supple, No JVD, No Nodes, Trachea Midline Lungs: No rhonchi, No wheeze, Diminished, - - Bibasilar rales. Symmetric expansion, no accessory muscle use Cardiovascular: Regular rate, Regular Rhythm, Normal S1, Normal S2 Abdomen: Bowel Sounds Present, Soft, Non Tender, - - PEG tube dressing intact Extremities: No clubbing, No cyanosis, No edema, Capillary Refill Less than 3 Seconds Skin: No rashes Musculoskeletal: No Tenderness to Palpation of Joints or Extremities, Cachexia, Muscle Wasting Lymphatic: - - No adenopathy Neurological: Cranial nerves II-XII grossly intact, Neuro grossly intact, - - Decreased strength throughout Psych/Mental Status: Flat Affect, Depressed, - - Cooperative. Microbiology Past 72 Hours 09/12/17 05:55 Legionella Antigen - Final Urine, Random Streptococcus pneumoniae Antigen (M - Final Streptococcus pneumonia Ag Laboratory Tests Past 24 Hrs 09/12/17 05:50 MRSA (PCR) Negative Medical Necessity - Tobacco Use Smoking Status: Former smoker Assessment/Plan All Active Problems MSSA bacteremia (Acute) Aspiration pneumonia (Acute) Acute delirium (Acute) Sepsis (Acute) RECOMMENDATIONS 1. Wean oxygen supplementation to keep saturations greater than 89% 2. Encourage incentive spirometer 3. Increase activity as tolerated, continue PT 4. Continue aerosols 5. De-escalate antibiotics to Augmentin 5. Continue n.p.o. status, PEG tube feedings 6. Maintain aspiration precautions 7. Ambulatory pulse oximetry prior to discharge, if able 8. Offer follow up if patient desires IMPRESSIONS 1. Acute on chronic hypoxic respiratory failure secondary recurrent aspiration pneumonia Strep pneumo antigen +. Patient on antibiotics for aspiration pneumonia, blood culture #2 pending. Patient does have recurrent strep and MSSA bacteremia with history of noncompliance with his n.p.o. status. Patient does have a PEG tube. Maintaining appropriate saturations on 3 L of oxygen supplementation. Continue pulmonary toileting. Maintain aspiration precautions. De-escalate antibiotics to Augmentin suspension. Patient appears to be at his baseline, may discontinue from pulmonary perspective and offer appointment if he wishes to follow-up in pulmonary clinic. 2. Sepsis secondary HCAP/aspiration pneumonia Patient does have history of adrenal insufficiency and is dependent on Florinef. Stress dose steroids should be considered if hypotension develops. Current vital signs are stable. Continue antibiotics as above. Nasal MRSA screening negative. 3. Encephalopathy secondary to metabolic/infectious etiology Supportive measures as indicated. 4. Hypothyroidism/medical noncompliance/recurrent aspiration/depression/esophageal cancer/severe malnutrition/chronic adrenal insufficiency Complicates care, management, recovery, and prognosis. Patient has been advised in the past and currently to follow recommendations for diet modification. She would likely benefit from further skilled therapy, however he is very fearful of this and would like to return home. Patient would be hospice/Palliative care appropriate. This note was generated with [employer] dictation software. It may contain incorrect words, spelling, and punctuation that were not noted in checking the note before signing.
[2017-09-13] MEDS: Ipratropium/Albuterol Sulfate 3 ML AMPUL.NEB INHALATION ×2 (10:32→14:53)
[2017-09-13] MEDS: 0.9% Normal Saline 1,000 ML 125 ML IV (12:50)
[2017-09-13] MEDS: Jevity 1.5 1,000 ML 20 ML GT (13:08)
--- NOTE | 2017-09-13 14:08 | PCM.DC ---
You will use the following diet at home:: Other - NPO Discharge Activity: Return to Normal Activity Call your doctor if you observe: Shortness of breath, Dizziness, Fainting spells, Chest pain, Increased palpitations (irregular heartbeat) Allergies/Adverse Reactions: Allergies No Known Allergies Allergy (Verified 02/09/17 14:11) Medications to take at Discharge Ascorbic Acid [Vitamin C] 500 mg GT DAILY@0800 08/16/17 Buspirone HCl 10 mg GT DAILY 08/16/17 Calcium Carbonate [Calcium] 600 mg GT DAILY 08/16/17 Duloxetine HCl 60 mg GT DAILY 08/16/17 Fludrocortisone Acetate [Florinef] 0.1 mg GT DAILY@0800 08/16/17 Fluticasone 0.05% [Flonase Nasal [place]] 1 spray NASAL DAILY 08/16/17 Folic Acid 0.4 mg GT DAILY@0800 08/16/17 Gabapentin [Neurontin] 800 mg GT TIDCM 08/16/17 Ipratropium/Albuterol Sulfate [Duoneb] 3 ml INHALATION Q4H.RT 08/16/17 Levothyroxine Sodium [Levoxyl] 150 mcg GT DAILY 08/16/17 Meclizine HCl 25 mg GT DAILY PRN PRN 08/16/17 Mirtazapine [Remeron] 15 mg GT QHS 08/16/17 Omeprazole [Prilosec] 20 mg GT DAILY 08/16/17 Tramadol HCl [Ultram] 50 mg GT DAILY PRN PRN 08/16/17 Amox/Clav 400mg/5ml Susp [Augmentin Suspension 400mg/5ml] 800 mg PO BIDCM 10 Days po.syringe 09/13/17 The following prescriptions were given: Amox/Clav 400mg/5ml Susp [Augmentin Suspension 400mg/5ml] 800 mg PO BIDCM 10 Days po.syringe Primary Care Physician: Soheila Moore MD [Primary Care Provider] - Please follow up with your Primary Care Physician in: 1 Week Please Follow Up With: Zachery Miramontes MD When: 2 Weeks Proposed Discharge Date: 09/13/17
--- NOTE | 2017-09-13 14:11 | DCINST_ITS ---
You will use the following diet at home:: Other - NPO Discharge Activity: Return to Normal Activity Call your doctor if you observe: Shortness of breath, Dizziness, Fainting spells , Chest pain, Increased palpitations (irregular heartbeat) Allergies/Adverse Reactions: Allergies No Known Allergies Allergy (Verified 02/09/17 14:11) Medications to take at Discharge Ascorbic Acid [Vitamin C] 500 mg GT DAILY@0800 08/16/17 Buspirone HCl 10 mg GT DAILY 08/16/17 Calcium Carbonate [Calcium] 600 mg GT DAILY 08/16/17 Duloxetine HCl 60 mg GT DAILY 08/16/17 Fludrocortisone Acetate [Florinef] 0.1 mg GT DAILY@0800 08/16/17 Fluticasone 0.05% [Flonase Nasal [place]] 1 spray NASAL DAILY 08/16/17 Folic Acid 0.4 mg GT DAILY@0800 08/16/17 Gabapentin [Neurontin] 800 mg GT TIDCM 08/16/17 Ipratropium/Albuterol Sulfate [Duoneb] 3 ml INHALATION Q4H.RT 08/16/17 Levothyroxine Sodium [Levoxyl] 150 mcg GT DAILY 08/16/17 Meclizine HCl 25 mg GT DAILY PRN PRN 08/16/17 Mirtazapine [Remeron] 15 mg GT QHS 08/16/17 Omeprazole [Prilosec] 20 mg GT DAILY 08/16/17 Tramadol HCl [Ultram] 50 mg GT DAILY PRN PRN 08/16/17 Amox/Clav 400mg/5ml Susp [Augmentin Suspension 400mg/5ml] 800 mg PO BIDCM 10 Days po.syringe 09/13/17 The following prescriptions were given: Amox/Clav 400mg/5ml Susp [Augmentin Suspension 400mg/5ml] 800 mg PO BIDCM 10 Days po.syringe Primary Care Physician: Soheila Moore MD [Primary Care Provider] - Please follow up with your Primary Care Physician in: 1 Week Please Follow Up With: Zachery Miramontes MD When: 2 Weeks Proposed Discharge Date: 09/13/17
--- NOTE | 2017-09-13 14:11 | PCM.DC.SUM ---
<Constance Medrano - Last Filed: 09/13/17 14:39> Discharge Date and Diagnosis Date of Admission: 09/12/17 Date of Discharge: 09/13/17 - Primary Discharge Diagnosis 1. Recurrent aspiration pneumonia with associated ongoing MSSA bacteremia 2. Acute encephalopathy secondary to #1 3. Severe protein calorie malnutrition - Secondary Discharge Diagnosis Chronic Problems Status post insertion of percutaneous endoscopic gastrostomy (PEG) tube (Chronic) GERD (gastroesophageal reflux disease) (Chronic) Hypothyroidism (Chronic) Depression (Chronic) History of throat cancer (Chronic) Dysphagia (Chronic) Hospital Course and Treatment Dr. Miramontes- Pulmonary Medicine Operations: None Procedures: None Summary of Care Provided: The patient is a 67 year old M admitted 09/12/17 due to confusion, shortness of breath. Patient has a history of recurrent aspiration pneumonia. Most recently hospitalized August 2017 with aspiration pneumonia. Patient has a history of chronic dysphagia secondary to esophageal stricture as a result of prior throat cancer and radiation therapy. He is status post PEG tube placement. He is noncompliant with n.p.o. recommendations. Patient has chronic hypoxic respiratory failure. He received IV antibiotics during admission and was seen with consultation by pulmonary medicine. He is on baseline oxygen at discharge. He was also noted to have ongoing MSSA bacteremia. He will be discharged on Augmentin suspension 400 mg per 5 mL, 800 mg twice daily for 10 days. Palliative care/hospice services were discussed with patient during admission which he declined. This is been discussed with patient in the past as well. Discussed with patient importance of n.p.o. status. He will follow-up with primary care physician in 1 week and pulmonary medicine in 2 weeks. Patient's other past medical history includes depression, hypothyroidism, GERD, severe protein calorie malnutrition, chronic adrenal insufficiency, oral mucositis, chronic anemia. General: Alert, Cooperative, No apparent distress, Cachectic HEENT: Atraumatic, Normocephalic Oral: Dry mucosa, Ulcerations Present Neck: Supple, No JVD, No Nodes, Trachea Midline Lungs: Diminished, rales. Cardiovascular: Regular rate, Regular Rhythm, Normal S1, Normal S2 Abdomen: Bowel Sounds Present, Soft, Non Tender, PEG tube intact Extremities: No clubbing, No cyanosis, No edema, Capillary Refill Less than 3 Seconds Skin: No rashes Musculoskeletal: No Tenderness to Palpation of Joints or Extremities, Cachexia, Muscle Wasting Lymphatic: No adenopathy Neurological: Cranial nerves II-XII grossly intact, Neuro grossly intact Psych/Mental Status: Flat Affect, Depressed Patient seen exam prior to discharge. Physical assessment as noted above. Patient is stable for discharge home with home health with the recommendations as noted above. This patient was seen by [facility] under the supervision of Dr. Mckeon. Discharge Diet: - - N.p.o. Discharge Activity: Return to Normal Activity Call your doctor if you observe: Shortness of breath, Dizziness, Fainting spells, Chest pain, Increased palpitations (irregular heartbeat) Home Medications: Medications to take at Discharge Ascorbic Acid [Vitamin C] 500 mg GT DAILY@0800 08/16/17 Buspirone HCl 10 mg GT DAILY 08/16/17 Calcium Carbonate [Calcium] 600 mg GT DAILY 08/16/17 Duloxetine HCl 60 mg GT DAILY 08/16/17 Fludrocortisone Acetate [Florinef] 0.1 mg GT DAILY@0800 08/16/17 Fluticasone 0.05% [Flonase Nasal [place]] 1 spray NASAL DAILY 08/16/17 Folic Acid 0.4 mg GT DAILY@0800 08/16/17 Gabapentin [Neurontin] 800 mg GT TIDCM 08/16/17 Ipratropium/Albuterol Sulfate [Duoneb] 3 ml INHALATION Q4H.RT 08/16/17 Levothyroxine Sodium [Levoxyl] 150 mcg GT DAILY 08/16/17 Meclizine HCl 25 mg GT DAILY PRN PRN 08/16/17 Mirtazapine [Remeron] 15 mg GT QHS 08/16/17 Omeprazole [Prilosec] 20 mg GT DAILY 08/16/17 Tramadol HCl [Ultram] 50 mg GT DAILY PRN PRN 08/16/17 Amox/Clav 400mg/5ml Susp [Augmentin Suspension 400mg/5ml] 800 mg PO BIDCM 10 Days po.syringe 09/13/17 Following Prescrptions Were Given to Patient: Amox/Clav 400mg/5ml Susp [Augmentin Suspension 400mg/5ml] 800 mg PO BIDCM 10 Days po.syringe Primary Care Physician: Soheila Moore MD [Primary Care Provider] - Please follow up with your Primary Care Physician in: 1 Week Please Follow Up With: Zachery Miramontes MD When: 2 Weeks Disposition: Home with Home Health Minutes spent on discharge:: 35 Patient Condition:: Stable Medical Necessity - Tobacco Use Smoking Status: Former smoker Meaningful Use Info Meaningful Use Diagnoses (Choose all that apply): None applicable <James Mckeon - Last Filed: 09/13/17 16:31> Discharge Date and Diagnosis - Secondary Discharge Diagnosis Chronic Problems Status post insertion of percutaneous endoscopic gastrostomy (PEG) tube (Chronic) GERD (gastroesophageal reflux disease) (Chronic) Hypothyroidism (Chronic) Depression (Chronic) History of throat cancer (Chronic) Dysphagia (Chronic) Hospital Course and Treatment Summary of Care Provided: This patient was seen in conjunction with Constance NGUYEN. I have independently interviewed and examined the patient and reviewed pertinent history, examination findings, laboratory and plan of management. I have reviewed the note and agree with the documented findings with the few additional points. In brief, patient is admitted for shortness of breath and confusion suspected due to aspiration pneumonia. Patient has a history of recurrent aspiration pneumonia and recurrent hospitalization for that. Workup showed urinary antigen for Streptococcus pneumonia positive and blood culture shows MSSE. Patient was seen by the dumpcart driver recommended discharge on Augmentin for further 10 days. Discharge medication reconciliation done. Discharge follow-up discussed with the patient. Total time spent, exact 35 minutes on discharge meds reconciliation, examination, review of imaging and blood test and discussion with the patient on follow-up instructions. I have discussed my assessment with Constance NGUYEN and orders have been reviewed. [] Code Visit Inpatient E&M: 89645 Disch Hosp
--- NOTE | 2017-09-13 14:31 | DS.PCM_ITS ---
<Constance Medrano - Last Filed: 09/13/17 14:39> Discharge Date and Diagnosis Date of Admission: 09/12/17 Date of Discharge: 09/13/17 - Primary Discharge Diagnosis 1. Recurrent aspiration pneumonia with associated ongoing MSSA bacteremia 2. Acute encephalopathy secondary to #1 3. Severe protein calorie malnutrition - Secondary Discharge Diagnosis Chronic Problems Status post insertion of percutaneous endoscopic gastrostomy (PEG) tube (Chronic ) GERD (gastroesophageal reflux disease) (Chronic) Hypothyroidism (Chronic) Depression (Chronic) History of throat cancer (Chronic) Dysphagia (Chronic) Hospital Course and Treatment Dr. Miramontes- Pulmonary Medicine Operations: None Procedures: None Summary of Care Provided: The patient is a 67 year old M admitted 09/12/17 due to confusion, shortness of breath. Patient has a history of recurrent aspiration pneumonia. Most recently hospitalized August 2017 with aspiration pneumonia. Patient has a history of chronic dysphagia secondary to esophageal stricture as a result of prior throat cancer and radiation therapy. He is status post PEG tube placement. He is noncompliant with n.p.o. recommendations. Patient has chronic hypoxic respiratory failure. He received IV antibiotics during admission and was seen with consultation by pulmonary medicine. He is on baseline oxygen at discharge. He was also noted to have ongoing MSSA bacteremia. He will be discharged on Augmentin suspension 400 mg per 5 mL, 800 mg twice daily for 10 days. Palliative care/hospice services were discussed with patient during admission which he declined. This is been discussed with patient in the past as well. Discussed with patient importance of n.p.o. status. He will follow-up with primary care physician in 1 week and pulmonary medicine in 2 weeks. Patient's other past medical history includes depression, hypothyroidism, GERD, severe protein calorie malnutrition, chronic adrenal insufficiency, oral mucositis, chronic anemia. General: Alert, Cooperative, No apparent distress, Cachectic HEENT: Atraumatic, Normocephalic Oral: Dry mucosa, Ulcerations Present Neck: Supple, No JVD, No Nodes, Trachea Midline Lungs: Diminished, rales. Cardiovascular: Regular rate, Regular Rhythm, Normal S1, Normal S2 Abdomen: Bowel Sounds Present, Soft, Non Tender, PEG tube intact Extremities: No clubbing, No cyanosis, No edema, Capillary Refill Less than 3 Seconds Skin: No rashes Musculoskeletal: No Tenderness to Palpation of Joints or Extremities, Cachexia, Muscle Wasting Lymphatic: No adenopathy Neurological: Cranial nerves II-XII grossly intact, Neuro grossly intact Psych/Mental Status: Flat Affect, Depressed Patient seen exam prior to discharge. Physical assessment as noted above. Patient is stable for discharge home with home health with the recommendations as noted above. This patient was seen by [facility] under the supervision of Dr. Mckeon. Discharge Diet: - - N.p.o. Discharge Activity: Return to Normal Activity Call your doctor if you observe: Shortness of breath, Dizziness, Fainting spells , Chest pain, Increased palpitations (irregular heartbeat) Home Medications: Medications to take at Discharge Ascorbic Acid [Vitamin C] 500 mg GT DAILY@0800 08/16/17 Buspirone HCl 10 mg GT DAILY 08/16/17 Calcium Carbonate [Calcium] 600 mg GT DAILY 08/16/17 Duloxetine HCl 60 mg GT DAILY 08/16/17 Fludrocortisone Acetate [Florinef] 0.1 mg GT DAILY@0800 08/16/17 Fluticasone 0.05% [Flonase Nasal [place]] 1 spray NASAL DAILY 08/16/17 Folic Acid 0.4 mg GT DAILY@0800 08/16/17 Gabapentin [Neurontin] 800 mg GT TIDCM 08/16/17 Ipratropium/Albuterol Sulfate [Duoneb] 3 ml INHALATION Q4H.RT 08/16/17 Levothyroxine Sodium [Levoxyl] 150 mcg GT DAILY 08/16/17 Meclizine HCl 25 mg GT DAILY PRN PRN 08/16/17 Mirtazapine [Remeron] 15 mg GT QHS 08/16/17 Omeprazole [Prilosec] 20 mg GT DAILY 08/16/17 Tramadol HCl [Ultram] 50 mg GT DAILY PRN PRN 08/16/17 Amox/Clav 400mg/5ml Susp [Augmentin Suspension 400mg/5ml] 800 mg PO BIDCM 10 Days po.syringe 09/13/17 Following Prescrptions Were Given to Patient: Amox/Clav 400mg/5ml Susp [Augmentin Suspension 400mg/5ml] 800 mg PO BIDCM 10 Days po.syringe Primary Care Physician: Soheila Moore MD [Primary Care Provider] - Please follow up with your Primary Care Physician in: 1 Week Please Follow Up With: Zachery Miramontes MD When: 2 Weeks Disposition: Home with Home Health Minutes spent on discharge:: 35 Patient Condition:: Stable Medical Necessity - Tobacco Use Smoking Status: Former smoker Meaningful Use Info Meaningful Use Diagnoses (Choose all that apply): None applicable <James Mckeon - Last Filed: 09/13/17 16:31> Discharge Date and Diagnosis - Secondary Discharge Diagnosis Chronic Problems Status post insertion of percutaneous endoscopic gastrostomy (PEG) tube (Chronic ) GERD (gastroesophageal reflux disease) (Chronic) Hypothyroidism (Chronic) Depression (Chronic) History of throat cancer (Chronic) Dysphagia (Chronic) Hospital Course and Treatment Summary of Care Provided: This patient was seen in conjunction with Constance NGUYEN. I have independently interviewed and examined the patient and reviewed pertinent history, examination findings, laboratory and plan of management. I have reviewed the note and agree with the documented findings with the few additional points. In brief, patient is admitted for shortness of breath and confusion suspected due to aspiration pneumonia. Patient has a history of recurrent aspiration pneumonia and recurrent hospitalization for that. Workup showed urinary antigen for Streptococcus pneumonia positive and blood culture shows MSSE. Patient was seen by the electric installer recommended discharge on Augmentin for further 10 days. Discharge medication reconciliation done. Discharge follow-up discussed with the patient. Total time spent, exact 35 minutes on discharge meds reconciliation, examination , review of imaging and blood test and discussion with the patient on follow-up instructions. I have discussed my assessment with Constance NGUYEN and orders have been reviewed. [] Code Visit Inpatient E&M: 53116 Disch Hosp
--- NOTE | 2017-09-13 14:35 | CASEMGMT ---
Patient has Passport. SW called his Bellman, Bell and left her a voice mail letting her know patient's admission and d/c. Marta MATTSON MSW
[2017-09-13 17:11] LABS: Allen Test POS; Base Excess 6 mmol/L (-2 to +2); Bicarbonate 29.9 mmol/L (22-26); Blood Gas Specimen Type ART; O2 Delivery Device Nasal Can; PO2 53 mmHG (75-100); SITE L Radial; SO2 89 % (95-99); Time Given 130; Total Carbon Dioxide 31 mmol/L; pCO2 39.8 mmHg (35-45); pH 7.48 (7.35-7.45)
[2017-09-14 10:11] LABS: Anion Gap 4 (5-15); BUN 20 mg/dL (7-18); Calcium,Total 8.5 mg/dL (8.5-10.1); Chloride 93 mmol/L (98-107); Creatinine, Serum 0.91 mg/dL (0.70-1.30); EST Glomerular Filtration Rate 88 mL/min (>60); Est Glom Filt Rate - Afr Amer 107 mL/min (>60); Glucose 84 mg/dL (74-106); Lactic Acid 1.6 mmol/L (0.4-2.0); Potassium 4.6 mmol/L (3.5-5.1); Sodium Level 131 mmol/L (136-145)
[2017-09-14 15:06] LABS: ALB/GLOB Ratio 0.5 RATIO (0.9-2.4); AST(SGOT) 20 U/L (15-37); Alanine Aminotransfer ALT/SGPT 15 U/L (16-61); Albumin, Serum 2.3 g/dL (3.2-5.0); Alkaline Phosphatase 64 U/L (45-117); BUN 20 mg/dL (7-18); BUN/Creat Ratio 21.1 RATIO (10-20); Creatinine, Serum 0.95 mg/dL (0.70-1.30); EST Glomerular Filtration Rate 84 mL/min (>60); Est Glom Filt Rate - Afr Amer 102 mL/min (>60); Globulin 4.4 g/dL (2.2-4.2); Glucose 72 mg/dL (74-106); Magnesium 1.7 mg/dL (1.6-2.6); Phosphorus 2.8 mg/dL (2.5-4.9); Protein, Total 6.7 g/dL (6.4-8.2)
[2017-09-14 15:07] LABS: Anion Gap 8 (5-15); Chloride 93 mmol/L (98-107); Potassium 4.1 mmol/L (3.5-5.1); Sodium Level 134 mmol/L (136-145)
[2017-09-14 15:14] LABS: Hematocrit 32.5 % (40-54); Hemoglobin 10.5 g/dl (13.0-16.5); Mean Corp Hgb Conc 32.3 g/gl (32-36); Mean Corpuscular Volume 92.9 fL (80-94); Mean Platelet Vol. 8.7 fl (6.2-12.0); Platelet Count 302 K/mm3 (150-450); RBC Distribution Width CV 16.7 % (11.6-14.6); RBC Distribution Width SD 54.6 fl (35.1-43.9)
[2017-09-14 15:15] LABS: Absolute Lymphocyte Count 1.61 X10^3/ul (0.83-4.51); Absolute Neutrophil Count 16.6 X10^3/uL (2.0-7.7); Basophil# 0.07 X10^3/uL; Basophil% 0.4 % (0-1); Eosinophil# 0.01 X10^3/uL; Eosinophils% 0.1 % (0-5); Lymphocyte # 1.61 X10^3/ul (4.0); Lymphocyte % 8.5 % (19-41); Monocyte# 0.62 X10^3/uL; Monocyte% 3.3 % (0-10); Neutrophil # 16.56 X10^3/uL (2.7-7.7); Neutrophil % 86.9 % (47-70); POSITIVE COUNT NO; POSITIVE DIFFERENTIAL NO; POSITIVE MORPHOLOGY NO
[2017-09-14 15:39] LABS: Absolute Neutrophil Count 15.1 X10^3/uL (2.0-7.7); Basophil% 0.3 % (0-1); Eosinophils% 0.3 % (0-5); Hematocrit 33.8 % (40-54); Hemoglobin 10.9 g/dl (13.0-16.5); Lymphocyte # 1.58 X10^3/ul (4.0); Lymphocyte % 8.9 % (19-41); Mean Corp Hgb Conc 32.2 g/gl (32-36); Mean Corpuscular Hgb 30.1 pg (27.0-32.0); Mean Corpuscular Volume 93.4 fL (80-94); Mean Platelet Vol. 8.5 fl (6.2-12.0); Neutrophil # 15.11 X10^3/uL (2.7-7.7); Neutrophil % 85.5 % (47-70); POSITIVE COUNT NO; POSITIVE DIFFERENTIAL NO; POSITIVE MORPHOLOGY NO; Platelet Count 320 K/mm3 (150-450); RBC Distribution Width CV 16.9 % (11.6-14.6); RBC Distribution Width SD 55.8 fl (35.1-43.9); Red Blood Count 3.62 M/mm3 (4.6-6.2); White Blood Count 17.7 K/mm3 (4.4-11.0)
[2017-09-14 15:40] LABS: Absolute Lymphocyte Count 1.58 X10^3/ul (0.83-4.51); Basophil# 0.05 X10^3/uL; Eosinophil# 0.05 X10^3/uL
[2017-09-17 12:15] LABS: Bedside Glucose 83 mg/dL (70-110)
== END 2017-09-13 17:37 | disposition home health service (06) | DRG 871 ==
LOC: ED 10:25 → ICU 10:31 → PCU 17:21
PROVIDERS: Admitting Provider Family Medicine; Emergency Provider Emergency Medicine; Family Provider Internal Medicine; PCP Internal Medicine; Visit Provider Internal Medicine
DX: A41.9 Sepsis, unspecified organism (principal); J96.21 Acute and chronic respiratory failure with hypoxia; J69.0 Pneumonitis due to inhalation of food and vomit; E43 Unspecified severe protein-calorie malnutrition; G93.41 Metabolic encephalopathy; Z68.1 Body mass index [BMI] 19.9 or less, adult; E27.40 Unspecified adrenocortical insufficiency; B95.61 Methicillin susceptible Staphylococcus aureus infection as the cause of diseases classified elsewhere; Z93.1 Gastrostomy status; Z85.819 Personal history of malignant neoplasm of unspecified site of lip, oral cavity, and pharynx; K21.9 Gastro-esophageal reflux disease without esophagitis; Z87.891 Personal history of nicotine dependence; Z99.81 Dependence on supplemental oxygen; Z91.19 Patient's noncompliance with other medical treatment and regimen; Z66 Do not resuscitate; F32.9 Major depressive disorder, single episode, unspecified; E03.9 Hypothyroidism, unspecified; H10.9 Unspecified conjunctivitis; D63.8 Anemia in other chronic diseases classified elsewhere; G62.9 Polyneuropathy, unspecified
CPT/HCPCS: 36415; 36600; 71045; 80048; 80053; 82803; 82962; 83605; 83735; 84100; 85025; 87040; 87149; 87449; 87641; 93005; 94640; 96365; 96367; 97802; 97803; 99284; J7030; J7050; A4216

== ENCOUNTER 2018-04-14 11:54 | Inpatient (IN) | payer MEDICARE, SELFPAY ==
[2018-04-14] VITALS (13 sets, daily range): BP systolic 120–175; BP diastolic 67–97; PULSE 58–70; RESP 13–18; TEMP 36.6–37.1; O2SAT 92–100; BMI 18.8; BMI 17.1
--- NOTE | 2018-04-14 12:03 | RAD_ITS ---
STUDY: X-RAY - RIGHT ANKLE REASON FOR EXAM: Male, 67 years old. Deformity and pain following a fall. TECHNIQUE: AP and lateral view(s) of the ankle. COMPARISON: None. FINDINGS: There is evidence of medial dislocation at the ankle joint. There is a nondisplaced fracture of the distal fibula. Diffuse soft tissue swelling. RAD/Ankle 2 Views IMPRESSION: Medial dislocation of the ankle joint with a nondisplaced fracture of the distal fibula. Electronically Signed: Sin Pascal MD at 13:07 EST Tel [phone], Service support ,
[2018-04-14 12:50] LABS: Absolute Neutrophil Count 9.3 X10^3/uL (2.0-7.7); Basophil# 0.09 X10^3/uL; Basophil% 0.7 % (0-1); Eosinophil# 0.43 X10^3/uL; Eosinophils% 3.3 % (0-5); Hematocrit 37.2 % (40-54); Hemoglobin 11.3 g/dl (13.0-16.5); Lymphocyte % 17.4 % (19-41); Mean Corp Hgb Conc 30.4 g/gl (32-36); Mean Corpuscular Hgb 27.6 pg (27.0-32.0); Mean Platelet Vol. 8.4 fl (6.2-12.0); Monocyte# 0.89 X10^3/uL; Monocyte% 6.7 % (0-10); Neutrophil # 9.29 X10^3/uL (2.7-7.7); Neutrophil % 70.3 % (47-70); Platelet Count 314 K/mm3 (150-450); RBC Distribution Width CV 15.8 % (11.6-14.6); RBC Distribution Width SD 52.8 fl (35.1-43.9); Red Blood Count 4.09 M/mm3 (4.6-6.2); White Blood Count 13.2 K/mm3 (4.4-11.0)
[2018-04-14 12:54] LABS: POSITIVE COUNT NO; POSITIVE DIFFERENTIAL NO; POSITIVE MORPHOLOGY NO
[2018-04-14] MEDS: Propofol 200 MG/20 ML Vial IV BOLUS (12:58)
[2018-04-14 13:00] LABS: Anion Gap 6 (5-15); BUN 13 mg/dL (7-18); BUN/Creat Ratio 11.5 RATIO (10-20); Calcium,Total 8.5 mg/dL (8.5-10.1); Chloride 98 mmol/L (98-107); Creatinine, Serum 1.13 mg/dL (0.70-1.30); EST Glomerular Filtration Rate 68 mL/min (>60); Est Glom Filt Rate - Afr Amer 83 mL/min (>60); Estimated Creatinine Clearance 54.98 ml/min; Glucose 81 mg/dL (74-106); Potassium 3.9 mmol/L (3.5-5.1); Sodium Level 139 mmol/L (136-145)
[2018-04-14 13:02] LABS: International Normalized Ratio 1.1; Prothrombin Time (Protime)PT. 13.8 SECONDS (11.7-14.9)
[2018-04-14 13:03] LABS: Partial Thromboplast Time 33.7 Seconds (24.1-36.2)
--- NOTE | 2018-04-14 13:08 | RAD_ITS ---
STUDY: X-RAY - RIGHT ANKLE REASON FOR EXAM: Male, 67 years old. Post reduction examination. TECHNIQUE: AP and lateral view(s) of the ankle. COMPARISON: Comparison is made with prior study done earlier today. FINDINGS: Transverse fracture of the medial malleolus. Transverse fracture of the lateral malleolus with a posterior displacement. Asymmetry of the ankle mortise. Normal visualized talus and calcaneus. Diffuse soft tissue swelling. RAD/Ankle 2 Views IMPRESSION: Satisfactory reduction. Transverse fracture of the lateral malleolus and medial malleolus with asymmetry of the ankle mortise. Electronically Signed: Sin Pascal MD at 13:26 EST Tel [phone], Service support ,
--- NOTE | 2018-04-14 13:13 | CT_ITS ---
STUDY: CT RIGHT ANKLE WITHOUT CONTRAST REASON FOR EXAM: Male, 67 years old. Fracture dislocation. RADIATION DOSAGE (If Supplied By Facility): CTDIvol = ( 15.35 ) mGy, DLP = ( 403.65 ) mGycm TECHNIQUE: Thin section transaxial imaging of the ankle was obtained, with sagittal and coronal reconstructed images. 3-D reconstruction was obtained as well. Individualized dose optimization techniques were used for this CT. COMPARISON: None. FINDINGS: There is a transverse fracture of the lateral malleolus with lateral and posterior displacement of the distal fracture fragment. There is evidence of a transverse fracture of the medial malleolus with inferior displacement. There is asymmetry of the ankle mortise. Normal talus, calcaneus, navicular and cuboid tarsal bones. Normal subtalar, talonavicular and calcaneocuboid articulations. Plantar spur. Normal navicular-cuneiform, cuneiform tarsal bones and intercuneiform articulations. Normal tarsometatarsal articulations and visualized metatarsi. Diffuse soft tissue swelling. Linear calcification seen in the distal portion of the Achilles tendon. CT/Extremity Lower without Contra IMPRESSION: Transverse fracture of the lateral malleolus with posterior and lateral displacement as well as avulsion type fracture of the medial malleolus with inferior displacement. Diffuse soft tissue swelling. Electronically Signed: Sin Pascal MD at 14:06 EST Tel [phone], Service support ,
--- NOTE | 2018-04-14 13:36 | CT_ITS ---
STUDY: CT RIGHT ANKLE WITHOUT CONTRAST REASON FOR EXAM: Male, 67 years old. Fracture dislocation. RADIATION DOSAGE (If Supplied By Facility): CTDIvol = ( 15.35 ) mGy, DLP = ( 403.65 ) mGycm TECHNIQUE: Thin section transaxial imaging of the ankle was obtained, with sagittal and coronal reconstructed images. 3-D reconstruction was obtained as well. Individualized dose optimization techniques were used for this CT. COMPARISON: None. FINDINGS: There is a transverse fracture of the lateral malleolus with lateral and posterior displacement of the distal fracture fragment. There is evidence of a transverse fracture of the medial malleolus with inferior displacement. There is asymmetry of the ankle mortise. Normal talus, calcaneus, navicular and cuboid tarsal bones. Normal subtalar, talonavicular and calcaneocuboid articulations. Plantar spur. Normal navicular-cuneiform, cuneiform tarsal bones and intercuneiform articulations. Normal tarsometatarsal articulations and visualized metatarsi. Diffuse soft tissue swelling. Linear calcification seen in the distal portion of the Achilles tendon. CT/Coronals Sag Multi Obl 3-D Rec IMPRESSION: Transverse fracture of the lateral malleolus with posterior and lateral displacement as well as avulsion type fracture of the medial malleolus with inferior displacement. Diffuse soft tissue swelling. Electronically Signed: Sin Pascal MD at 14:06 EST Tel [phone], Service support ,
--- NOTE | 2018-04-14 14:32 | ED.DCSUM_ITS ---
- ER Visit Summary Date of Service: 04/14/18 Chief Complaint: Fall History of Present Illness: The patient is a 67 M who had a mechanical fall today. He injured his right foot and ankle. He denies any other injuries or complaints. He does go to hospice for malnutrition. He is revoking his hospice. He is on aspirin but no other blood thinners. Former smoker. Physical Examination: Afebrile and vital signs unremarkable. Head and neck are atraumatic. Heart regular. Lungs clear. Abdomen soft. Right ankle shows an obvious deformity with tenderness. He does have an intact pulse. Skin appears to be intact. Test Results: Initial x-rays show a fracture dislocation of his right ankle. Emergency Department Course and Treatment: Patient was consented for sedation and closed reduction. This was performed by me. We had good reduction. Skin remained intact. He was neurovascular intact afterwards. He was placed in a posterior splint. He tolerated this well. No desaturations or hypotension during sedation. He received a total of 50 mg of propofol. Postreduction x-rays showed a successful reduction but it appears that he has a bimalleolar fracture. Discussed with Dr. Biggs, podiatry. CT with recons ordered. Patient initially wanted to try to go home. He was requesting a cane. I advised him that he cannot be weightbearing at all. He would need crutches or a walker. He told me that he has to go up and down stairs at home and cannot do that with a cane, crutches, or a walker. Patient was discussed with the hospitalist and will be admitted for further care. Treatment Plan: As above Disposition: Admission Impression: 1. Right ankle bimalleolar fracture This note was generated with [employer] dictation software. It may contain incorrect words, spelling, and punctuation that were not noted in review of the chart prior to signing ED Disposition - Plan for ED Patient: Chief Complaint: Fall Referrals: Soheila Moore MD [Primary Care Provider] -
--- NOTE | 2018-04-14 14:50 | HP.PCM_ITS ---
Problem List (1) Ankle fracture, right Status: Acute (2) COPD (chronic obstructive pulmonary disease) Status: Chronic (3) Severe malnutrition Status: Chronic (4) Status post insertion of percutaneous endoscopic gastrostomy (PEG) tube Status: Chronic (5) GERD (gastroesophageal reflux disease) Status: Chronic (6) Hypothyroidism Status: Chronic (7) Depression Status: Chronic (8) History of throat cancer Status: Chronic (9) Dysphagia Status: Chronic History of Present Illness Date of Admission: 04/14/18 Chief Complaint: right ankle pain The patient is a 67 year old M with pmhx of throat cancer in remission x 8 years, dysphagia with PEG tube in place, COPD on home O2, malnutrition, severe debility and muscle wasting for which he says he is on hospice, and chronic vertigo. He was trying to get into his car today at his apartment and slipped on the snow. He injured his right ankle and struck his head on the fall. He tried to get up and fell again. He then called his roomate who refused to call 911 or come help him get up, so he got into his car and drove to his girlfriends house. She could not get him out of the car so she called EMS who brought him to the ER. He was found to have a right ankle fracture which was reduced and splinted in the ER. He c/o 9/10 pain. No numbness or tingling. Podiatry was consulted, this is pending. He had a headache which is resolved, and also had some dizziness in the squad which was resolved. No nausea. [] Past Medical History Past Medical History (Chronic Problems): Chronic Problems COPD (chronic obstructive pulmonary disease) (Chronic) Severe malnutrition (Chronic) Status post insertion of percutaneous endoscopic gastrostomy (PEG) tube (Chronic) GERD (gastroesophageal reflux disease) (Chronic) Hypothyroidism (Chronic) Depression (Chronic) History of throat cancer (Chronic) Dysphagia (Chronic) Allergies No Known Allergies Allergy (Verified 02/09/17 14:11) Home Medications: Ambulatory Orders Medication Instructions Recorded Buspirone HCl 10 mg GT DAILY 08/16/17 Duloxetine HCl 60 mg GT DAILY 08/16/17 Gabapentin [Neurontin] 800 mg GT TIDCM 08/16/17 Ipratropium/Albuterol Sulfate 3 ml INHALATION Q4H.RT 08/16/17 [Duoneb] Levothyroxine Sodium [Levoxyl] 150 mcg GT DAILY 08/16/17 Mirtazapine [Remeron] 15 mg GT QHS 08/16/17 Omeprazole [Prilosec] 20 mg GT DAILY 08/16/17 Tramadol HCl [Ultram] 50 mg GT DAILY PRN PRN 08/16/17 Acetaminophen [Mapap] 04/14/18 Ascorbic Acid [Vitamin C] 04/14/18 Aspirin 81 mg PO DAILY 04/14/18 Cholecalciferol (VIT D3) [Vitamin 04/14/18 D3] Ferrous Sulfate Syrup 04/14/18 Fludrocortisone Acetate [Florinef] 04/14/18 Folic Acid 04/14/18 Meclizine HCl 04/14/18 Oseltamivir Phosphate [Tamiflu] 75 mg PO DAILY 04/14/18 Prednisone 5 mg PO 04/14/18 Senna/Docusate Sodium [Senokot-S] 04/14/18 Sennosides/Docusate Sodium 1 each PO BID 04/14/18 [Senna-S Tablet] Silver Sulfadiazine 04/14/18 Tizanidine HCl 4 mg PO TID 04/14/18 Zolpidem Tartrate [Ambien 5 mg PO QHS 04/14/18 (Generic)] Surgical History: no surgical history, - - PEG tube placement Psychiatric History: Depression Lives: Roommate Smoking Status: Former smoker Tobacco Use: Non-smoker Alcohol: None Drugs: None - *Family History Maternal History Items: Heart Disease Paternal History Items: Heart Disease, - - Reports passing secondary to pneumonia Review of Systems Constitutional: Denies: Chills, Fever, Weight Change HEENT: Denies: Head Aches, Sinus Congestion, Sinus Drainage Cardiovascular: Denies: Chest Pain, Palpitations Respiratory: Denies: Cough, Shortness of breath at rest, Sputum production Gastrointestinal: Denies: Abdominal Pain, Nausea, Vomiting Genitourinary: Denies: Dysuria Musculoskeletal: Reports: Joint Pain, Joint swelling. Denies: Joint Tenderness Skin: Denies: Rash, Wounds Neurological: Reports: - - dizziness. Denies: Focal weakness, Numbness, Tingling Psychiatric: Denies: Anxiety, Depression, Homicidal Ideations, Suicidal Ideations Hematologic/ Lymphatic: Denies: Easy Bruising, Easy Bleeding VTE Information - Inpt Only VTE Present on Admission: No VTE Mechan Device Prophylaxis: None VTE Pharm Prophylaxis ordered?: Yes Patient Problems: Active and Suspected Problems Ankle fracture, right (Acute) - Physical Exam General: Alert, Oriented x3, Cooperative, - - cachectic HEENT: Atraumatic, PERRLA, EOMI, Normocephalic Neck: Supple, No JVD, Negative Carotid Bruits Lungs: Clear to auscultation, Normal air movement Cardiovascular: Regular rate, No murmurs Abdomen: Bowel Sounds Present, Soft, Non Tender Extremities: No edema, Capillary Refill Less than 3 Seconds Skin: No rashes, No breakdown Musculoskeletal: No Tenderness to Palpation of Joints or Extremities, - - RLE splinted, sensation intact. Neurological: Cranial nerves II-XII grossly intact Psych/Mental Status: Normal Affect, Appropriate Vital Signs Temp Pulse Resp BP Pulse Ox 98.1 F 65 18 173/86 H 94 04/14/18 11:55 04/14/18 13:54 04/14/18 13:54 04/14/18 13:54 04/14/18 13:54 Oxygen Flow Rate (L/min) [1] 15 Oxygen Flow Rate (L/min) [6] 3 Oxygen Flow Rate (L/min) [5] 3 Oxygen Flow Rate (L/min) [3] 15 Oxygen Flow Rate (L/min) 4 Oxygen Delivery Method [1] Non-Rebreather Oxygen Delivery Method [6] Nasal Cannula Oxygen Delivery Method [5] Nasal Cannula Oxygen Delivery Method [4] Non-Rebreather Oxygen Delivery Method [3] Non-Rebreather Oxygen Delivery Method [2] Nasal Cannula Oxygen Delivery Method Room Air Weight: 138 lb 14.259 oz Body Mass Index (BMI) 18.8 Laboratory Tests Past 24 Hrs 04/14/18 04/14/18 04/14/18 12:23 12:23 12:23 WBC 13.2 H RBC 4.09 L Hgb 11.3 L Hct 37.2 L MCV 91.0 MCH 27.6 MCHC 30.4 L RDW 15.8 H RDW Differential 52.8 H Plt Count 314 MPV 8.4 Immature Gran % (Auto) 1.600 H Neut % (Auto) 70.3 H Lymph % (Auto) 17.4 L Gregory % (Auto) 6.7 Eos % (Auto) 3.3 Baso % (Auto) 0.7 Absolute Neuts (auto) 9.3 H Absolute Lymphs (auto) 2.30 Total Counted Not Reportable PT 13.8 INR 1.1 APTT 33.7 Sodium 139 Potassium 3.9 Chloride 98 Carbon Dioxide 35.0 H Anion Gap 6 BUN 13 Creatinine 1.13 Estim Creat Clear Calc 54.98 Est GFR (MDRD) Af Amer 83 Est GFR (MDRD) Non-Af 68 BUN/Creatinine Ratio 11.5 Glucose 81 Calcium 8.5 Assessment/Plan All Active Problems MSSA bacteremia (Acute) Ankle fracture, right (Acute) Aspiration pneumonia (Acute) Acute delirium (Acute) Sepsis (Acute) 1. Fall, debility, mechanical, with acute right ankle fracture - splinted, reduced in ER. Podiatry consulted. PTOT evals. Pain management, wait for surgical decision. leukocytosis is likely reactive to acute injury. CT shows acute transverse fx lateral malleolus with displacement, and avulsion fracture medial malleolus with displacement. 2. Muscle wasting, chronic, severe protein malnutrition - was on hospice for this reportedly. Underlying etiology unclear 3. Fall and struck head with distracting injury, had dizziness as well although he has chronic dizziness - obtain CT head. 4. Hx throat cancer - in remission x 8 years 5. PEG tube in place 2/2 #4 - says he can have liquids but no solids orally, sometimes uses tube feeds at home but does not know what it is - ST and dietary evals. Hx of aspiration pna 6. COPD with chronic home o2 use - stable. 7. Hypothyroid - synthroid 8. Chronic vertigo, unclear etiology. continue prn meclizine DVT ppx: obtain CT head, if negative give lovenox. DC planning: lives in an apartment, may need placement for rehab. Was on hos pice, the reasons for which are not clear - states muscle wasting. This patient was seen by Neri Walter PA-C under the supervision of Dr. Bates.
--- NOTE | 2018-04-14 15:24 | NURSING ---
321 ANKLE FX AMPARO
--- NOTE | 2018-04-14 15:47 | PN_ITS ---
Patient Problems: Active and Suspected Problems Ankle fracture, right (Acute) Subjective: This 67 year old male was consulted to podiatry after being admitted through the Emergency Room for a right bimalleolar ankle fracture. Patient was trying to get into his car earlier today and fell in the snow on his driveway. He says he joe led his roommate for help, but they said they would not help him. Patient was able to get into his car and drive to his girlfriends house. Patient's girlfriend then called EMS who transported the patient to the hospital. Patient has a history of throat cancer that is in remission for 8 years, PEG tube placed, COPD, as well as some muscle wasting. Patient underwent closed reduction with application of posterior splint in the ER. He is currently resting comfortably in bed with his girlfriend by his side. - Physical Exam General: Alert, Oriented x3, Cooperative Extremities: Capillary Refill Less than 3 Seconds - to all distal digits of the right foot, - - Patients pulses were unable to be tested due to posterior splint application. Toes were normal in color and temperature. Skin: - - Skin over right foot/ankle area unable to be evaluated at this time due to application of posterior splint Musculoskeletal: - - Patient has tenderness/pain appreciated to right ankle in area of fracture. Patient able to move all of his toes to the right foot. No pain to toes. Neurological: Sensory exam intact to light touch and pain - to toes of right foot Psych/Mental Status: Normal Affect, Appropriate Vital Signs Temp Pulse Resp BP Pulse Ox 98.1 F 60 18 150/83 H 98 04/14/18 11:55 04/14/18 15:00 04/14/18 15:00 04/14/18 15:00 04/14/18 15:00 Oxygen Flow Rate (L/min) [1] 15 Oxygen Flow Rate (L/min) [6] 3 Oxygen Flow Rate (L/min) [5] 3 Oxygen Flow Rate (L/min) [3] 15 Oxygen Flow Rate (L/min) 3 Oxygen Delivery Method [1] Non-Rebreather Oxygen Delivery Method [6] Nasal Cannula Oxygen Delivery Method [5] Nasal Cannula Oxygen Delivery Method [4] Non-Rebreather Oxygen Delivery Method [3] Non-Rebreather Oxygen Delivery Method [2] Nasal Cannula Oxygen Delivery Method Nasal Cannula Weight: 63 kg Body Mass Index (BMI) 18.8 Laboratory Tests Past 24 Hrs 04/14/18 04/14/18 04/14/18 12:23 12:23 12:23 WBC 13.2 H RBC 4.09 L Hgb 11.3 L Hct 37.2 L MCV 91.0 MCH 27.6 MCHC 30.4 L RDW 15.8 H RDW Differential 52.8 H Plt Count 314 MPV 8.4 Immature Gran % (Auto) 1.600 H Neut % (Auto) 70.3 H Lymph % (Auto) 17.4 L Gonzales % (Auto) 6.7 Eos % (Auto) 3.3 Baso % (Auto) 0.7 Absolute Neuts (auto) 9.3 H Absolute Lymphs (auto) 2.30 Total Counted Not Reportable PT 13.8 INR 1.1 APTT 33.7 Sodium 139 Potassium 3.9 Chloride 98 Carbon Dioxide 35.0 H Anion Gap 6 BUN 13 Creatinine 1.13 Estim Creat Clear Calc 54.98 Est GFR (MDRD) Af Amer 83 Est GFR (MDRD) Non-Af 68 BUN/Creatinine Ratio 11.5 Glucose 81 Calcium 8.5 Medical Necessity - Tobacco Use Smoking Status: Former smoker Tobacco Use: Non-smoker Assessment/Plan All Active Problems MSSA bacteremia (Acute) Ankle fracture, right (Acute) Aspiration pneumonia (Acute) Acute delirium (Acute) Sepsis (Acute) Ankle fracture, right Pain right lower extremity Other comorbidities This patient was carefully examined and evaluated resting in his bed in the ER w aiting to be transferred to the floor. Patient's girlfriend present in the room. Patient's WBC is 13.2. Patient had closed reduction with posterior splint application by Dr. Saavedra in the ER. The posterior splint was not removed during my evaluation this afternoon in order to keep compression and stability to the area. 3 view x-rays as well as CT with 3D recons were both evaluated of the right ankle. This shows a bimalleolar ankle fracture with a transverse fracture of the lateral malleolus with some posterior and lateral displacement. There is also an avulsion fracture of the medial malleolus with some inferior displacement. Soft tissue swelling is noted. I discussed this case with Dr. Louise, who will plan to take this patient to surgery tomorrow. I also discussed with Dr. Bates who will also be ordering EKG and Chest X ray for the patient. I discussed with the patient and his girlfriend all possible procedures as well as the reasoning behind them today along with the risks and benefits of this. All other questions were answered to the patient's and his girlfriend's satisfaction. The patient understands all of this and wishes to proceed with planned procedure pending clearance from hospitalist. Medical management per primary team as well as DVT prophylaxis is much appreciated. Podiatry will continue to follow this patient while in house.
--- NOTE | 2018-04-14 15:58 | CT_ITS ---
STUDY: CT BRAIN WITHOUT CONTRAST REASON FOR EXAM: Male, 67 years old. Fall. History of esophageal carcinoma. Lower extremity fracture. RADIATION DOSAGE (If Supplied By Facility): CTDIvol = ( 44.99 ) mGy, DLP = ( 812.98 ) mGycm TECHNIQUE: Transaxial CT imaging of the brain was performed without administration of intravenous contrast material. Individualized dose optimization techniques were used for this CT. COMPARISON: August 16, 2017 FINDINGS: Normal soft tissue structures. Normal calvarium. There is mild cerebral atrophy with widening of the extra-axial spaces and ventricular dilatation. Normal white matter tracts of the cerebral hemispheres. Normal basal ganglia and thalami. Normal brainstem. Normal cerebellum. There is no intracranial hemorrhage. There are no findings of an acute ischemic infarction. Normal visualized paranasal sinuses. CT/Brain/Head without Contrast IMPRESSION: Chronic involutional changes of the brain. Stable appearance. No hemorrhage Electronically Signed: Robert Reynolds MD at 17:46 EST , Service support ,
--- NOTE | 2018-04-14 16:07 | EKG12_ITS ---
Test Reason : PREOP Blood Pressure : / mmHG Vent. Rate : 072 BPM Atrial Rate : 072 BPM P-R Int : 162 ms QRS Dur : 094 ms QT Int : 398 ms P-R-T Axes : 060 -47 040 degrees QTc Int : 435 ms Normal sinus rhythm Left anterior fascicular block Abnormal ECG Confirmed by LEAH PEDRO, BARBARA ([id number]), editor trade journal MICHAEL LEMOS ([id number]) on 04/19/2018 5:38:49 PM Referred By: Confirmed By:BARBARA LYNN MD
[2018-04-14] MEDS: 0.9% Normal Saline 1,000 ML 150 ML IV (16:27)
[2018-04-14] MEDS: Morphine 2 MG/ML Syringe IV ×2 (16:28→20:42)
[2018-04-14] MEDS: 0.9% NaCl Peripheral Flush Adult/Peds IV ×2 (16:29→20:43)
--- NOTE | 2018-04-14 16:50 | RAD_ITS ---
STUDY: X-RAY CHEST REASON FOR EXAM: Male, 67 years old. Patient fell. Ankle fracture TECHNIQUE: 1 view COMPARISON: October 12, 2017 FINDINGS: There is a background of chronic interstitial lung disease. No acute pneumonia or failure and no pleural effusions. The heart is normal. Normal visualized thoracic spine. Normal visualized ribs, clavicles, and shoulders. There is no demonstrated abnormality of the visualized soft tissue structures of the upper abdomen. RAD/Chest 1 View (Portable) IMPRESSION: A background of chronic interstitial lung disease. No acute findings in the lungs Electronically Signed: James Mesa MD at 2:24 EST Tel , Service support ,
[2018-04-14] MEDS: Gabapentin 800 MG Tablet GT (17:26)
--- NOTE | 2018-04-14 19:13 | PCA ---
Copies of pt living will and POA on chart.
[2018-04-14] MEDS: Mirtazapine 15 MG Tablet GT (21:52)
[2018-04-14] MEDS: Ferrous Sulfate 300 MG/5 ML UDC GT (21:52)
[2018-04-14] MEDS: Zolpidem Tartrate 5 MG Tablet PO (21:52)
[2018-04-14] MEDS: busPIRone 15 MG TABLET 10 MG GT (21:52)
[2018-04-14] MEDS: Senna/Docusate Sodium 1 Tablet GT (21:52)
[2018-04-14] MEDS: tiZANidine HCl 2 MG Tablet 4 MG GT (21:52)
[2018-04-15] VITALS (18 sets, daily range): BP systolic 103–155; BP diastolic 57–84; PULSE 66–92; RESP 10–22; TEMP 36.3–37.7; O2SAT 82–100; BMI 17.1; BMI 18.8
[2018-04-15] MEDS: Morphine 2 MG/ML Syringe IV ×3 (02:56→20:31)
[2018-04-15] MEDS: 0.9% NaCl Peripheral Flush Adult/Peds IV ×3 (02:57→20:32)
[2018-04-15] MEDS: tiZANidine HCl 2 MG Tablet 4 MG GT ×2 (05:07→21:51)
[2018-04-15] MEDS: oxyCODONE 5 MG Tablet PO (05:08)
[2018-04-15] MEDS: Levothyroxine 150 MCG Tablet GT (05:08)
[2018-04-15 06:36] LABS: Absolute Lymphocyte Count 2.25 X10^3/ul (0.83-4.51); Absolute Neutrophil Count 11.4 X10^3/uL (2.0-7.7); Basophil# 0.08 X10^3/uL; Basophil% 0.5 % (0-1); Eosinophil# 0.33 X10^3/uL; Eosinophils% 2.2 % (0-5); Hematocrit 35.6 % (40-54); Lymphocyte # 2.25 X10^3/ul (4.0); Lymphocyte % 14.7 % (19-41); Mean Corp Hgb Conc 30.9 g/gl (32-36); Mean Corpuscular Hgb 28.3 pg (27.0-32.0); Mean Corpuscular Volume 91.5 fL (80-94); Mean Platelet Vol. 8.4 fl (6.2-12.0); Monocyte# 1.05 X10^3/uL; Monocyte% 6.9 % (0-10); Neutrophil # 11.44 X10^3/uL (2.7-7.7); Neutrophil % 74.6 % (47-70); Platelet Count 318 K/mm3 (150-450); RBC Distribution Width CV 15.4 % (11.6-14.6); RBC Distribution Width SD 49.9 fl (35.1-43.9); Red Blood Count 3.89 M/mm3 (4.6-6.2); White Blood Count 15.3 K/mm3 (4.4-11.0)
[2018-04-15 06:47] LABS: POSITIVE COUNT NO; POSITIVE DIFFERENTIAL NO; POSITIVE MORPHOLOGY NO
--- NOTE | 2018-04-15 07:00 | RAD_ITS ---
STUDY: X-RAY - RIGHT FOOT CLINICAL: Male, 67 years old. Close reduction with external fixation. TECHNIQUE: 4 view(s) of the foot. COMPARISON: None. FINDINGS: 4 images were submitted, as radiology support for c-arm imaging in the operating room. This is not a diagnostic examination. Images for documentation purposes only. Fluoroscopy time if reported: RAD/Foot 2 Views IMPRESSION: Intraoperative fluoroscopic image guidance. Electronically Signed: Gregoria Curiel MD at 5:04 EST , Service support ,
[2018-04-15] MEDS: Ipratropium/Albuterol Sulfate 3 ML AMPUL.NEB INHALATION ×3 (07:08→22:40)
[2018-04-15 08:24] LABS: Vitamin D,25 Hydroxy 38.2 ng/mL (29.95-100.01)
[2018-04-15 09:41] LABS: T4 Free Direct 0.59 ng/dL (0.76-1.46)
--- NOTE | 2018-04-15 10:28 | NURSING ---
report called to Letty in AC. pt transferred off the unit at this time
--- NOTE | 2018-04-15 10:30 | CASEMGMT ---
RN CM attempted Face to Face assessment at this time. Patient off floor to surgery at this time. RN CM will attempt to complete assessment at later time.
--- NOTE | 2018-04-15 11:35 | RAD_ITS ---
STUDY: X-RAY - RIGHT ANKLE REASON FOR EXAM: Male, 67 years old. ] Reduction TECHNIQUE: 10 intraoperative fluoroscopic view(s) of the ankle. COMPARISON: None. FINDINGS: Fluoroscopic guidance was provided during placement of external fixation of the right ankle. RAD/Ankle min 3 Views IMPRESSION: As above. Electronically Signed: Valeriano Morales, at 15:02 EST Tel , Service support ,
--- NOTE | 2018-04-15 11:59 | PCA ---
pt off floor
--- NOTE | 2018-04-15 12:07 | PN_ITS ---
Patient Problems: Active and Suspected Problems Bimalleolar fracture of right ankle (Acute) Blister (Acute) Ankle fracture, right (Acute) Subjective: This 67-year-old pleasant male with significant past medical history of COPD, severe malnutrition, GERD, hypothyroidism, depression, history of throat cancer with dysphagia seen bedside earlier this morning for right ankle fracture. He slipped on the ice yesterday and denies other injuries or loss of consciousness. His injury site was reduced in the emergency room and a compression dressing with posterior mold splint was applied. He is continued fall risk and was admitted due to inability to safely return home. - Physical Exam General: Alert, Oriented x3, Cooperative Extremities: Capillary Refill Less than 3 Seconds - All digits bilateral, No Calf Tenderness - Negative Crawley sign bilateral, Peripheral Pulses Normal - Palpable DP pulse right and left 2 out of 4 Skin: - - Right lower extremity splint is clean and intact and ankle remains in a rectus position. No apparent skin tenting right lower extremity Musculoskeletal: Muscle Wasting, Tenderness - Pain to palpate medial lateral malleolus, - - Active range of motion all digits bilateral foot Neurological: - - Epicritic sensation intact to light touch to all toes bilateral foot Psych/Mental Status: Normal Affect, Appropriate Vital Signs Temp Pulse Resp BP Pulse Ox 98.1 F 71 18 103/57 L 93 04/15/18 08:25 04/15/18 08:25 04/15/18 08:25 04/15/18 08:25 04/15/18 08:29 Oxygen Flow Rate (L/min) [1] 15 Oxygen Flow Rate (L/min) [6] 3 Oxygen Flow Rate (L/min) [5] 3 Oxygen Flow Rate (L/min) [3] 15 Oxygen Flow Rate (L/min) 2 Oxygen Delivery Method [1] Non-Rebreather Oxygen Delivery Method [6] Nasal Cannula Oxygen Delivery Method [5] Nasal Cannula Oxygen Delivery Method [4] Non-Rebreather Oxygen Delivery Method [3] Non-Rebreather Oxygen Delivery Method [2] Nasal Cannula Oxygen Delivery Method Nasal Cannula Weight: 57.2 kg Body Mass Index (BMI) 17.1 Intake and Output for Last 24 Hours 04/13/18 04/14/18 04/15/18 23:59 23:59 23:59 Intake Total 1095 / 1095 Output Total 275 / 275 150 / 150 Balance 820 / 820 -150 / -150 Laboratory Tests Past 24 Hrs 04/14/18 04/14/18 04/14/18 12:23 12:23 12:23 WBC 13.2 H RBC 4.09 L Hgb 11.3 L Hct 37.2 L MCV 91.0 MCH 27.6 MCHC 30.4 L RDW 15.8 H RDW Differential 52.8 H Plt Count 314 MPV 8.4 Immature Gran % (Auto) 1.600 H Neut % (Auto) 70.3 H Lymph % (Auto) 17.4 L Robeson % (Auto) 6.7 Eos % (Auto) 3.3 Baso % (Auto) 0.7 Absolute Neuts (auto) 9.3 H Absolute Lymphs (auto) 2.30 Total Counted Not Reportable PT 13.8 INR 1.1 APTT 33.7 Sodium 139 Potassium 3.9 Chloride 98 Carbon Dioxide 35.0 H Anion Gap 6 BUN 13 Creatinine 1.13 Estim Creat Clear Calc 54.98 Est GFR (MDRD) Af Amer 83 Est GFR (MDRD) Non-Af 68 BUN/Creatinine Ratio 11.5 Glucose 81 Calcium 8.5 Prealbumin Vitamin D 25-Hydroxy TSH Free T4 04/14/18 04/15/18 04/15/18 12:23 05:38 05:38 WBC 15.3 H RBC 3.89 L Hgb 11.0 L Hct 35.6 L MCV 91.5 MCH 28.3 MCHC 30.9 L RDW 15.4 H RDW Differential 49.9 H Plt Count 318 MPV 8.4 Immature Gran % (Auto) 1.100 H Neut % (Auto) 74.6 H Lymph % (Auto) 14.7 L Robeson % (Auto) 6.9 Eos % (Auto) 2.2 Baso % (Auto) 0.5 Absolute Neuts (auto) 11.4 H Absolute Lymphs (auto) 2.25 Total Counted Not Reportable PT INR APTT Sodium Potassium Chloride Carbon Dioxide Anion Gap BUN Creatinine Estim Creat Clear Calc Est GFR (MDRD) Af Amer Est GFR (MDRD) Non-Af BUN/Creatinine Ratio Glucose Calcium Prealbumin 18.0 L Vitamin D 25-Hydroxy 38.2 TSH 50.50 H Free T4 04/15/18 05:38 WBC RBC Hgb Hct MCV MCH MCHC RDW RDW Differential Plt Count MPV Immature Gran % (Auto) Neut % (Auto) Lymph % (Auto) Robeson % (Auto) Eos % (Auto) Baso % (Auto) Absolute Neuts (auto) Absolute Lymphs (auto) Total Counted PT INR APTT Sodium Potassium Chloride Carbon Dioxide Anion Gap BUN Creatinine Estim Creat Clear Calc Est GFR (MDRD) Af Amer Est GFR (MDRD) Non-Af BUN/Creatinine Ratio Glucose Calcium Prealbumin Vitamin D 25-Hydroxy TSH Free T4 0.59 L Medical Necessity - Tobacco Use Smoking Status: Former smoker Tobacco Use: Non-smoker Assessment/Plan All Active Problems Bimalleolar fracture of right ankle (Acute) Blister (Acute) Ankle fracture, right (Acute) He was evaluated this morning. His post reduction ankle xrays and CT scan were reviewed with SER IV equivalent fracture pattern. This is unstable and I recommend surgical repair. The preoperative indications, planned procedure, possible benefits, risks, complications, and anticipated healing time and management were discussed in detail. The surgical consent and the surgical limb were signed. He was consented for open reduction internal fixation of right ankle fracture with likely internal fixation and possible external fixation if the skin envelope is compromised. No guarantees were made. His preoperative history and physical, diagnostic data, and optimization plan were evaluated. It is noted that he is in poor health and he is at high risk for delayed healing due to his significant malnutrition. This is not an elective surgery. He understands he will be admitted to the hospital after the surgery for recovery in which we will focus on pain control, medical stabilization and physical therapy evaluation. It is noted nutrition service is on consult. I answered all his questions to his satisfaction. The case was also reviewed with his girlfriend. Sima Louise DPM, [facility] [phone]
[2018-04-15] MEDS: Cefazolin 2 GM in 0.9% Normal Saline 100 ML IV (12:35)
--- NOTE | 2018-04-15 14:06 | PN_ITS ---
<Neri Walter - Last Filed: 04/15/18 13:59> Patient Problems: Active and Suspected Problems Ankle fracture, right (Acute) Subjective: Pt seen and examined prior to surgery, he is agreeable. Pain is still 9/10 but he appears comfortable in bed NAD. Right foot without numbness or tingling. No nausea/vomiting. No CP, no SOB, dizziness, LH, FRANCOIS. - Physical Exam General: Alert, Oriented x3, Cooperative HEENT: Atraumatic, PERRLA, EOMI, Normocephalic Neck: Supple, No JVD, Negative Carotid Bruits Lungs: Clear to auscultation, Normal air movement Cardiovascular: Regular rate, No murmurs Abdomen: Bowel Sounds Present, Soft, Non Tender Extremities: No edema, Capillary Refill Less than 3 Seconds Skin: No rashes, No breakdown Musculoskeletal: No Tenderness to Palpation of Joints or Extremities Neurological: Cranial nerves II-XII grossly intact Psych/Mental Status: Normal Affect, Appropriate, Alert and oriented to time, place, person, mood and affect Vital Signs Temp Pulse Resp BP Pulse Ox 98.1 F 71 18 103/57 L 93 04/15/18 08:25 04/15/18 08:25 04/15/18 08:25 04/15/18 08:25 04/15/18 08:29 Oxygen Flow Rate (L/min) [1] 15 Oxygen Flow Rate (L/min) [6] 3 Oxygen Flow Rate (L/min) [5] 3 Oxygen Flow Rate (L/min) [3] 15 Oxygen Flow Rate (L/min) 2 Oxygen Delivery Method [1] Non-Rebreather Oxygen Delivery Method [6] Nasal Cannula Oxygen Delivery Method [5] Nasal Cannula Oxygen Delivery Method [4] Non-Rebreather Oxygen Delivery Method [3] Non-Rebreather Oxygen Delivery Method [2] Nasal Cannula Oxygen Delivery Method Nasal Cannula Weight: 126 lb 1.671 oz Body Mass Index (BMI) 17.1 Intake and Output for Last 24 Hours 04/13/18 04/14/18 04/15/18 23:59 23:59 23:59 Intake Total 1095 / 1095 Output Total 275 / 275 150 / 150 Balance 820 / 820 -150 / -150 Laboratory Tests Past 24 Hrs 04/14/18 04/15/18 04/15/18 12:23 05:38 05:38 WBC 15.3 H RBC 3.89 L Hgb 11.0 L Hct 35.6 L MCV 91.5 MCH 28.3 MCHC 30.9 L RDW 15.4 H RDW Differential 49.9 H Plt Count 318 MPV 8.4 Immature Gran % (Auto) 1.100 H Neut % (Auto) 74.6 H Lymph % (Auto) 14.7 L Anderson % (Auto) 6.9 Eos % (Auto) 2.2 Baso % (Auto) 0.5 Absolute Neuts (auto) 11.4 H Absolute Lymphs (auto) 2.25 Total Counted Not Reportable Prealbumin 18.0 L Vitamin D 25-Hydroxy 38.2 TSH 50.50 H Free T4 04/15/18 05:38 WBC RBC Hgb Hct MCV MCH MCHC RDW RDW Differential Plt Count MPV Immature Gran % (Auto) Neut % (Auto) Lymph % (Auto) Anderson % (Auto) Eos % (Auto) Baso % (Auto) Absolute Neuts (auto) Absolute Lymphs (auto) Total Counted Prealbumin Vitamin D 25-Hydroxy TSH Free T4 0.59 L Medical Necessity - Tobacco Use Smoking Status: Former smoker Tobacco Use: Non-smoker Assessment/Plan All Active Problems Ankle fracture, right (Acute) 1. Fall, debility, mechanical, with acute right ankle fracture - splinted, reduced in ER. Podiatry consulted. PTOT evals. Pain management, wait for surgical decision. leukocytosis is likely reactive to acute injury. CT shows acute transverse fx lateral malleolus with displacement, and avulsion fracture medial malleolus with displacement. -Pt to go to OR today with Dr. Louise. 2. Muscle wasting, chronic, severe protein malnutrition - was on hospice for this reportedly. Underlying etiology unclear 3. Fall and struck head with distracting injury, had dizziness in squad, as well although he has chronic dizziness - CT negative for acute change. 4. Hx throat cancer - in remission x 8 years 5. PEG tube in place 2/ #4 - says he can have liquids but no solids orally, sometimes uses tube feeds at home but does not know what it is - ST and dietary evals. Hx of aspiration pna. 6. COPD with chronic home o2 use - stable. 7. Hypothyroid - synthroid, TSH high, T4 low - increased synthroid by 12.5mcg. 8. Chronic vertigo, unclear etiology. continue prn meclizine. None this AM. DVT ppx: SCDs, begin post surgery. DC planning: lives in an apartment, may need placement for rehab. Was on hospice, the reasons for which are not clear - states muscle wasting. This patient was seen by Neri Walter PA-C under the supervision of Dr. Tariq <Any Tariq E - Last Filed: 04/15/18 14:22> - Physical Exam Vital Signs Temp Pulse Resp BP Pulse Ox 98.1 F 71 18 103/57 L 93 04/15/18 08:25 04/15/18 08:25 04/15/18 08:25 04/15/18 08:25 04/15/18 08:29 Oxygen Flow Rate (L/min) [1] 15 Oxygen Flow Rate (L/min) [6] 3 Oxygen Flow Rate (L/min) [5] 3 Oxygen Flow Rate (L/min) [3] 15 Oxygen Flow Rate (L/min) 2 Oxygen Delivery Method [1] Non-Rebreather Oxygen Delivery Method [6] Nasal Cannula Oxygen Delivery Method [5] Nasal Cannula Oxygen Delivery Method [4] Non-Rebreather Oxygen Delivery Method [3] Non-Rebreather Oxygen Delivery Method [2] Nasal Cannula Oxygen Delivery Method Nasal Cannula Weight: 126 lb 1.671 oz Body Mass Index (BMI) 17.1 Intake and Output for Last 24 Hours 04/13/18 04/14/18 04/15/18 23:59 23:59 23:59 Intake Total 1095 / 1095 Output Total 275 / 275 150 / 150 Balance 820 / 820 -150 / -150 Laboratory Tests Past 24 Hrs 04/14/18 04/15/18 04/15/18 12:23 05:38 05:38 WBC 15.3 H RBC 3.89 L Hgb 11.0 L Hct 35.6 L MCV 91.5 MCH 28.3 MCHC 30.9 L RDW 15.4 H RDW Differential 49.9 H Plt Count 318 MPV 8.4 Immature Gran % (Auto) 1.100 H Neut % (Auto) 74.6 H Lymph % (Auto) 14.7 L Anderson % (Auto) 6.9 Eos % (Auto) 2.2 Baso % (Auto) 0.5 Absolute Neuts (auto) 11.4 H Absolute Lymphs (auto) 2.25 Total Counted Not Reportable Prealbumin 18.0 L Vitamin D 25-Hydroxy 38.2 TSH 50.50 H Free T4 04/15/18 05:38 WBC RBC Hgb Hct MCV MCH MCHC RDW RDW Differential Plt Count MPV Immature Gran % (Auto) Neut % (Auto) Lymph % (Auto) Anderson % (Auto) Eos % (Auto) Baso % (Auto) Absolute Neuts (auto) Absolute Lymphs (auto) Total Counted Prealbumin Vitamin D 25-Hydroxy TSH Free T4 0.59 L Assessment/Plan Hospitalist note: I am seeing this patient in conjunction with Neri Walter. I independently seen and examined the patient. Progress note above, laboratory data and imaging studies reviewed and I concur with the above treatment plan. Patient was admitted because of mechanical fall, found to have acute traumatic transverse fracture of the right lateral malleolus with posterior and lateral displacement as well as a avulsion fracture of the medial malleolus. Patient seen and examined. He complains of right ankle pain, 7 out of 10 in severity. Pain at rest. His vital signs are stable. - Physical Exam General: Alert, Oriented x3, Cooperative, No apparent distress. HEENT: Atraumatic, PERRLA, EOMI. Neck: Supple, No JVD, Negative Carotid Bruits, Trachea Midline, Thyroid Normal. Lungs: Clear to auscultation, Normal air movement, No rhonchi, No wheeze, No rales. Cardiovascular: Regular rate, Regular Rhythm, Normal S1, Normal S2, PMI Normal. Abdomen: Bowel Sounds Present, Soft, Non Tender, Non-Distended, No Hepato- splenomegaly. Extremities: No clubbing, No cyanosis, No edema Skin: No rashes, No breakdown Neurological: Neuro grossly intact Vital Signs are stable. Assessment and plan: #1 mechanical fall/acute traumatic transverse fracture of the right lateral malleolus with posterior and lateral displacement as well as a avulsion fracture of the medial malleolus. X-ray of the right ankle as well as CT scan of the right foot reviewed, findings noted. He is on IV morphine as well as OxyIR as needed for pain. Vital signs are stable. Routine blood work was remarkable for chronic leukocytosis and chronic anemia, otherwise normal. Podiatry medicine consulted, patient is going for surgery today. #2 closed head trauma: CT scan was negative for acute changes. #3 chronic anemia/chronic leukocytosis: Stable, no evidence of infection and no evidence of active bleeding. Plan to repeat CBC tomorrow morning. #4 other chronic medical problems: Stable, continue current medications as above. This note was generated with [employer] dictation software. It may contain incorrect words, spelling, and punctuation that were not noted in checking the note before signing. Code Visit Inpatient E&M: 67327 Subs Hosp L2
--- NOTE | 2018-04-15 14:25 | PCM.IMDPSTOP ---
Problem List (1) Bimalleolar fracture of right ankle Status: Acute (2) Blister Status: Acute Immediate Post-Op Note Date of Procedure: 04/15/18 - Coding Coordinator: Benjamin Tony PGY1, Vignesh Page PGY2. Surgeon: Sima Louise DPM Primary Surgeon/Physician: Sima Louise DPM interventional cardiologist: none Pre-Operative Diagnosis: bimalleolus ankle fracture, right Post-Operative Diagnosis: bimalleolus ankle fracture with fracture blisters, right Surgery/Procedure Performed:: closed reduction of right ankle fracture with application of external fixation Description of Surgical Findings:: hemostasis controlled materials: synthes large external fixator including tibia (2, 5 mm) and first cuneiform (1, 4 mm) half pins, one transcalcaneus pin complications: none specimen: none The patient tolerated the procedure and anesthesia well. He was transferred to the PACU with vital signs stable vascular status intact to the right lower extremity. He will be transferred back to the regular medicine floor upon continued stability. All postoperative orders were entered electronically. Estimated Blood Loss: < 20 mL Specimen's removed: none Type of Anesthesia:: Spinal - Admit VTE Documentation VTE Present on Admission: No VTE Mechan Device Prophylaxis: SCD's VTE Pharm Prophylaxis ordered?: Yes
--- NOTE | 2018-04-15 14:29 | OP.PN_ITS ---
Problem List (1) Bimalleolar fracture of right ankle Status: Acute (2) Blister Status: Acute Immediate Post-Op Note Date of Procedure: 04/15/18 - Periodontist: Benjamin Tony PGY1, Vignesh Page PGY2. Surgeon: Sima Louise DPM Primary Surgeon/Physician: Sima Louise DPM workers compensation claims supervisor: none Pre-Operative Diagnosis: bimalleolus ankle fracture, right Post-Operative Diagnosis: bimalleolus ankle fracture with fracture blisters, right Surgery/Procedure Performed:: closed reduction of right ankle fracture with application of external fixation Description of Surgical Findings:: hemostasis controlled materials: synthes large external fixator including tibia (2, 5 mm) and first cuneiform (1, 4 mm) half pins, one transcalcaneus pin complications: none specimen: none The patient tolerated the procedure and anesthesia well. He was transferred to the PACU with vital signs stable vascular status intact to the right lower extremity. He will be transferred back to the regular medicine floor upon continued stability. All postoperative orders were entered electronically. Estimated Blood Loss: < 20 mL Specimen's removed: none Type of Anesthesia:: Spinal - Admit VTE Documentation VTE Present on Admission: No VTE Mechan Device Prophylaxis: SCD's VTE Pharm Prophylaxis ordered?: Yes
--- NOTE | 2018-04-15 14:53 | OP.PCM_ITS ---
Problem List (1) Bimalleolar fracture of right ankle Status: Acute (2) Blister Status: Acute Report of Operation Date of Procedure: 04/15/18 - Oracle Architect: Benjamin Tony PGY1, Vignesh Page PGY2. Surgeon: Sima Louise DPM Pre-Operative Diagnosis: bimalleolus ankle fracture, right Post-Operative Diagnosis: bimalleolus ankle fracture with fracture blisters, right Surgery/Procedure Performed:: closed reduction of right ankle fracture with application of external fixation Description of Surgical Findings:: hemostasis controlled; no tourniquet utilized materials: synthes large external fixator including tibia (2, 5 mm) + first cuneiform (1, 4 mm) half pins, one transcalcaneus pin complications: none specimen: none Injections none quality engineer medical device: none Type of Anesthesia:: Sedation,Conscious, Spinal Specimen's removed: none Estimated Blood Loss (mL): < 20 mL Description of Procedure: Indications: This 67-year-old male with significant past medical history of chronic obstructive pulmonary disease, severe malnutrition with PEG tube, GERD, hypothyroidism, depression, history of throat cancer with dysphagia sustained a fall yesterday. This resulted in an unstable bimalleolus ankle fracture of the right lower extremity. It was closed reduced in the emergency room and he was admitted overnight due to safety concerns with his return home. X-rays demonstrated a slightly oblique distal fibula fracture at the level of the ankle joint consistent with a Goddard B and also a medial malleolus fracture. This is considered an unstable fracture pattern and the patient elects to proceed with fixation. It is noted that at one point he was on hospice for severe malnutrition, and then exited the program. I confirmed with him that he is interested in fixing this fracture at this time. He does have palpable DP pulse of the right lower extremity and brisk capillary fill time to all digits of this limb. The preoperative indication, planned procedure, possible benefits, risks, complications, and anticipated healing time and management was discussed in detail with the patient. He understands and elects to proceed with surgery at this time. He was consented for open reduction internal fixation of the right ankle fracture with possible application of external fixator. Informed surgical consent and the surgical limb were signed. I did answer all of his questions. He understands complications and risks may include the following: infection, delayed or nonhealing, pain, scarring, swelling, fixation failure, blood clot, loss of limb, function, or life. Preoperative optimization was performed by the admitting hospitalist which is greatly appreciated. Procedure in detail: The patient was transported to the operating room via cart and placed on the operating table in the supine position. Final verification patient, surgery, and limb designation was performed via the timeout procedure. A well-padded pneumatic right thigh tourniquet was placed however this was not utilized. Spinal anesthesia was administered via the anesthesia team. The posterior mold splint and compression dressing was removed and severe fracture blisters with deep tissue necrosis and serous hematogenous drainage was expressed from both the medial lateral aspect. This blister was near circumferential. This deep tissue injury appeared to be extensive and I do not recommend making incisions through this compromised skin at this time. The decision was made to apply an external fixation pin to bar apparatus with improved closed fracture reduction. The right lower extremity was prepped and draped according to usual sterile technique. Surgery began as a following: Attention was first directed to the anterior tibial crest in which two half pins were applied taking care to go gently into the posterior tibial cortex. Prior to application a small incision was made in the skin and blunt dissection was performed with a hemostat. No vital neurovascular structures were encountered at this point or throughout the entire procedure, and care was taken to stay in the safe zones. Next a trans-calcaneus pin was applied going from medial to lateral through the posterior tubercle of the calcaneus. Pin to bar apparatus was secured and the ankle was pulled out to length via distraction and manually manipulated into an improved position. The external fixation device was tightened at this location and improved reduction and ankle mortise rectus position was confirmed with intraoperative fluoroscopy. Next an additional half pin was applied into the first cuneiform and secured to the pin to bar apparatus to ensure additional anterior to posterior translation prevention. Postoperative x-rays were obtained confirming proper pin placement and trajectory, and appropriate maintained fracture reduction position. A postoperative dressing consisting of Xeroform was applied to all drain blister sites and pin sites. Additional gauze and Kerlix were applied around the ankle as well. The entire external fixation device was further secured with Grzegorz wraps. After procedure: The patient was transferred to the PACU vital signs stable and vascular status intact to the right lower extremity. He will be transferred back to the regular medicine floor upon continued stability. This is a planned staged procedure and after his skin envelope improves, a planned open reduction internal fixation will be performed. To ice and elevate for pain and inflammation management. He was advised to maintain a strict nonweightbearing status to the right lower extremity with the use of assistive devices. Physical and occupational therapy will also evaluate him while he is admitted for gait training as well as for home assessment. Pain medications are ordered on an as-needed basis. All of his postoperative orders were entered electronically. Medical management and DVT prophylaxis per primary team is greatly appreciated. Sima Louies DPM, [facility]
[2018-04-15] MEDS: Gabapentin 800 MG Tablet GT (17:25)
[2018-04-15] MEDS: LANSOPRAZOLE 15 MG CAPSULE.DR GT (17:25)
[2018-04-15] MEDS: busPIRone 15 MG TABLET 10 MG GT (21:51)
[2018-04-15] MEDS: Senna/Docusate Sodium 1 Tablet GT (21:51)
[2018-04-15] MEDS: Ferrous Sulfate 300 MG/5 ML UDC GT (21:51)
[2018-04-15] MEDS: Zolpidem Tartrate 5 MG Tablet GT (21:52)
[2018-04-15] MEDS: Mirtazapine 15 MG Tablet GT (21:52)
--- NOTE | 2018-04-15 22:45 | CPS ---
increased O2 to 3 lpm
[2018-04-16] VITALS (18 sets, daily range): BP systolic 55–154; BP diastolic 35–79; PULSE 57–91; RESP 11–24; TEMP 36.5–37.3; O2SAT 55–100
[2018-04-16] MEDS: Morphine 2 MG/ML Syringe IV ×3 (02:13→12:16)
[2018-04-16] MEDS: 0.9% NaCl Peripheral Flush Adult/Peds IV ×3 (02:13→12:17)
[2018-04-16] MEDS: Levothyroxine 112 MCG Tablet GT (06:19)
[2018-04-16] MEDS: Levothyroxine 50 MCG Tablet GT (06:19)
--- NOTE | 2018-04-16 06:38 | PCM.PROGNOTE ---
Patient Problems: Active and Suspected Problems Bimalleolar fracture of right ankle (Acute) Blister (Acute) Ankle fracture, right (Acute) Subjective: This 67-year-old male was seen bedside postoperative day #1 closed reduction of right ankle fracture with application of external fixation due to bimalleolar unstable ankle fracture and fracture blisters. He denies fever, chill, nausea, vomiting, calf pain, shortness of breath, chest pain. He has continued pain to his right ankle. - Physical Exam General: Alert, Oriented x3, Cooperative, - Extremities: Capillary Refill Less than 3 Seconds - All toes right foot, No Calf Tenderness - Negative Crawley sign bilateral Skin: Ulcer/ Wound - The dressing is clean and dry without any strikethrough. In the external fixation pin to bar structure appears to be intact with the ankle in a rectus position Musculoskeletal: Muscle Wasting, - - Active range of motion toes right foot Neurological: - - Epicritic sensation intact light touch to all toes of the right foot Psych/Mental Status: Normal Affect, Appropriate Vital Signs Temp Pulse Resp BP Pulse Ox 99.0 F 87 16 154/70 H 95 04/16/18 02:15 04/16/18 02:15 04/16/18 02:15 04/16/18 02:15 04/16/18 02:15 Oxygen Flow Rate (L/min) [1] 15 Oxygen Flow Rate (L/min) [6] 3 Oxygen Flow Rate (L/min) [5] 3 Oxygen Flow Rate (L/min) [3] 15 Oxygen Flow Rate (L/min) 2 Oxygen Delivery Method [1] Non-Rebreather Oxygen Delivery Method [6] Nasal Cannula Oxygen Delivery Method [5] Nasal Cannula Oxygen Delivery Method [4] Non-Rebreather Oxygen Delivery Method [3] Non-Rebreather Oxygen Delivery Method [2] Nasal Cannula Oxygen Delivery Method Room Air Weight: 57.2 kg Body Mass Index (BMI) 17.1 Intake and Output for Last 24 Hours 04/14/18 04/15/18 04/16/18 23:59 23:59 23:59 Intake Total 1095 / 1095 620 / 620 400 / 400 Output Total 275 / 275 200 / 200 1125 / 1125 Balance 820 / 820 420 / 420 -725 / -725 Laboratory Tests Past 24 Hrs 04/15/18 04/15/18 04/15/18 05:38 05:38 05:38 WBC 15.3 H RBC 3.89 L Hgb 11.0 L Hct 35.6 L MCV 91.5 MCH 28.3 MCHC 30.9 L RDW 15.4 H RDW Differential 49.9 H Plt Count 318 MPV 8.4 Immature Gran % (Auto) 1.100 H Neut % (Auto) 74.6 H Lymph % (Auto) 14.7 L Pierce % (Auto) 6.9 Eos % (Auto) 2.2 Baso % (Auto) 0.5 Absolute Neuts (auto) 11.4 H Absolute Lymphs (auto) 2.25 Total Counted Not Reportable Vitamin D 25-Hydroxy 38.2 Free T4 0.59 L Medical Necessity - Tobacco Use Smoking Status: Former smoker Tobacco Use: Non-smoker Assessment/Plan All Active Problems Bimalleolar fracture of right ankle (Acute) Blister (Acute) Ankle fracture, right (Acute) Postoperative day #1 closed reduction application of external fixation right bimalleolar ankle fracture Fracture blisters Severe malnutrition (history of throat cancer with dysphagia and PEG placement) Significant past medical history of COPD, hypothyroidism, depression, GERD I reviewed and discussed his case. His vital signs remained stable. He does have some leukocytosis which may be post trauma or anesthesia. There were no local lower extremity signs of infection. This will be monitored. He was advised to ice and elevate to reduce edema and pain. He has been taking pain medicine is ordered; to continue if needed. To maintain a strict nonweightbearing status. He has a small serous filled blister to the dorsal forefoot and this was drained after Betadine preparation today. Overlying gauze was applied and there is no local signs of infection. The knee to elevate was again emphasized that he should have his foot above heart level while resting. His ankles and improved rectus position and this was evaluated intraoperatively and with fluoroscopy. He understands this is a staged procedure and open reduction internal fixation is recommended after his skin envelope is appropriate. The anticipated timeframe is 2-6 weeks for this staged procedure. From a surgical standpoint it is okay for him to resume his aspirin. Medical management and DVT prophylaxis per primary team is greatly appreciated. I will continue to follow him closely while in house. To continue with nutritional supplementation to optimize healing; it is noted nutrition services is on consult. He was also advised to use his incentive spirometer hourly while awake. Please not hesitate to call if you have any questions. iSma Louise DPM, [facility] [phone]
[2018-04-16] MEDS: tiZANidine HCl 2 MG Tablet 4 MG GT ×3 (07:07→21:50)
[2018-04-16] MEDS: Ipratropium/Albuterol Sulfate 3 ML AMPUL.NEB INHALATION ×5 (07:11→22:12)
[2018-04-16 07:47] LABS: Absolute Neutrophil Count 13.3 X10^3/uL (2.0-7.7); Basophil# 0.05 X10^3/uL; Basophil% 0.3 % (0-1); Eosinophil# 0.34 X10^3/uL; Hematocrit 32.1 % (40-54); Hemoglobin 9.9 g/dl (13.0-16.5); Lymphocyte % 11.7 % (19-41); Mean Corp Hgb Conc 30.8 g/gl (32-36); Mean Corpuscular Hgb 27.7 pg (27.0-32.0); Mean Corpuscular Volume 89.7 fL (80-94); Mean Platelet Vol. 8.5 fl (6.2-12.0); Monocyte# 1.29 X10^3/uL; Monocyte% 7.5 % (0-10); Neutrophil % 77.5 % (47-70); Platelet Count 318 K/mm3 (150-450); RBC Distribution Width CV 15.6 % (11.6-14.6); RBC Distribution Width SD 50.7 fl (35.1-43.9); Red Blood Count 3.58 M/mm3 (4.6-6.2); White Blood Count 17.2 K/mm3 (4.4-11.0)
[2018-04-16 07:54] LABS: POSITIVE COUNT NO; POSITIVE DIFFERENTIAL NO; POSITIVE MORPHOLOGY NO
--- NOTE | 2018-04-16 08:11 | NURSING ---
called to room by GOAT FARMER, in room pt noted spo2 60's primary RN at bedside. this RN went for NRB and paged Dr. Tariq stating probably need you chaz to call Doretha RN at [phone]
[2018-04-16 08:15] LABS: Anion Gap 7 (5-15); BUN 12 mg/dL (7-18); Calcium,Total 8.4 mg/dL (8.5-10.1); Chloride 96 mmol/L (98-107); Creatinine, Serum 0.92 mg/dL (0.70-1.30); EST Glomerular Filtration Rate 86 mL/min (>60); Est Glom Filt Rate - Afr Amer 104 mL/min (>60); Estimated Creatinine Clearance 61.31 ml/min; Glucose 80 mg/dL (74-106); Potassium 3.8 mmol/L (3.5-5.1); Sodium Level 134 mmol/L (136-145)
--- NOTE | 2018-04-16 08:16 | NURSING ---
When this nurse rounded on pt with [facility] shift lead nurse. pt was restless in bed and rating pain 9/10 and moaning. This nurse approx 30-40 min later came in room to medicate pt. pt was white as ghost and VS were initiated. SP02 55% on RA. Appears pt had taken oxygen off. Pt was waking up only to voice and then going back to sleep. 02 reapplied at 2l Nc and came up to 68%. Lorin LÓPEZtower watchman notifed and in room. Non-Rebreather applied. and spo2 100%. See Vitals for trends.
--- NOTE | 2018-04-16 08:23 | NURSING ---
2nd IV placed in LFA. pt being connected to tele monitor and cspo2. [id number] dr. stauffer paged again for primary RN. patrick bp 66/38 bolus going, opening eyes but does report dizziness while in reverse trand. Do you want us to give narcan? Are you coming to see pt? Hes a full cose in system since revoke hospice for OR. Doretha [phone] Stauffer as still awaiting reponse.321 fesmtal bolus done 76/40 manual bp, 69. RR11 100% NRB pt more awake moaning Doretha [phone]
--- NOTE | 2018-04-16 08:48 | NURSING ---
500cc bolus done infusing at this time. BP checked manually by this nurse, BP 76/40, HR 71. Pt more aware, verbalizing he is cold and moaning d/t pain. Irritated. Dr. Tariq texted via [employer] and awaiting response.
--- NOTE | 2018-04-16 09:06 | NURSING ---
Rt LE is Elevated on two pillows. Pt is A&OX3, able to follow commands. Non rebreather still maintained. Taken out of [place] position.
--- NOTE | 2018-04-16 09:17 | NURSING ---
This nurse switeched pt over to NC since he was 100% on NRB for sometime now. Sp02 at 3L NC is now 100%.
--- NOTE | 2018-04-16 09:46 | NURSING ---
This nurse checked on pt. spo2 73% on monitor with the oxygen at 3L via NC. This nurse took him off the NC and put him back on the NRB. Dr. Gonzales after being paged several times via lift operator or [employer], Dr. Gonzales came to see pt. No new orders. Dr. Gonzales was okay with just the 500cc bolus and is aware of recent VS. See intervention. Wants him to only have oral pain medication and try to stay away from the Morphine and keep him on the Non-ReBreather.
--- NOTE | 2018-04-16 10:05 | PN_ITS ---
Patient Problems: Active and Suspected Problems Bimalleolar fracture of right ankle (Acute) Blister (Acute) Ankle fracture, right (Acute) Subjective: Chief complaint: Follow-up after admission for acute traumatic transverse fracture of the right lateral malleolus and a avulsion fracture of the medial malleolus of the right ankle, status post closed reduction of the right ankle fracture with application of external fixation. Patient seen and examined. This morning, patient received IV morphine 4 mg and he became hypotensive, sleepy and lethargic and hypoxic as well. At this time, patient is sleepy but arousable, denies any symptoms except right foot pain. Denies chest pain, shortness of breath, dizziness, lightheadedness. His blood pressure has been borderline around 80s, received bolus of IV fluids. He has been afebrile, heart rate stable, pulse ox is maintained on Ventimask. - Physical Exam General: Alert, Oriented x3, Cooperative, Lethargic HEENT: Atraumatic, PERRLA, EOMI, Normocephalic Oral: Moist Mucosa, No Gingival or Mucosal Lesions/ Ulcerations Neck: Supple, No JVD, Negative Carotid Bruits, Trachea Midline, Thyroid Normal Size and Texture Lungs: Clear to auscultation, No rhonchi, No wheeze, No rales, Diminished Cardiovascular: Regular rate, Regular Rhythm, Normal S1, Normal S2 Abdomen: Bowel Sounds Present, Soft, Non Tender, Non-Distended, No Hepato- splenomegaly Extremities: No clubbing, No cyanosis, No edema Skin: No rashes, No breakdown Lymphatic: No Cervical, Supraclavicular, or Inguinal Adenopathy Neurological: Cranial nerves II-XII grossly intact, Neuro grossly intact Psych/Mental Status: Normal Affect, Appropriate, Alert and oriented to time, place, person, mood and affect Vital Signs Temp Pulse Resp BP Pulse Ox 98.2 F 73 11 L 98/62 100 04/16/18 09:54 04/16/18 09:54 04/16/18 09:54 04/16/18 09:54 04/16/18 09:54 Oxygen Flow Rate (L/min) [1] 15 Oxygen Flow Rate (L/min) [6] 3 Oxygen Flow Rate (L/min) [5] 3 Oxygen Flow Rate (L/min) [3] 15 Oxygen Flow Rate (L/min) 100 Oxygen Delivery Method [1] Non-Rebreather Oxygen Delivery Method [6] Nasal Cannula Oxygen Delivery Method [5] Nasal Cannula Oxygen Delivery Method [4] Non-Rebreather Oxygen Delivery Method [3] Non-Rebreather Oxygen Delivery Method [2] Nasal Cannula Oxygen Delivery Method Non-Rebreather Weight: 126 lb 1.671 oz Body Mass Index (BMI) 17.1 Intake and Output for Last 24 Hours 04/14/18 04/15/18 04/16/18 23:59 23:59 23:59 Intake Total 1095 / 1095 620 / 620 400 / 400 Output Total 275 / 275 200 / 200 1125 / 1125 Balance 820 / 820 420 / 420 -725 / -725 Laboratory Tests Past 24 Hrs 04/16/18 04/16/18 06:58 06:58 WBC 17.2 H RBC 3.58 L Hgb 9.9 L Hct 32.1 L MCV 89.7 MCH 27.7 MCHC 30.8 L RDW 15.6 H RDW Differential 50.7 H Plt Count 318 MPV 8.5 Immature Gran % (Auto) 1.000 H Neut % (Auto) 77.5 H Lymph % (Auto) 11.7 L Carroll % (Auto) 7.5 Eos % (Auto) 2.0 Baso % (Auto) 0.3 Absolute Neuts (auto) 13.3 H Absolute Lymphs (auto) 2.00 Total Counted Not Reportable Sodium 134 L Potassium 3.8 Chloride 96 L Carbon Dioxide 31.0 Anion Gap 7 BUN 12 Creatinine 0.92 Estim Creat Clear Calc 61.31 Est GFR (MDRD) Af Amer 104 Est GFR (MDRD) Non-Af 86 BUN/Creatinine Ratio 13.0 Glucose 80 Calcium 8.4 L Medical Necessity - Tobacco Use Smoking Status: Former smoker Tobacco Use: Non-smoker Assessment/Plan All Active Problems Bimalleolar fracture of right ankle (Acute) Blister (Acute) Ankle fracture, right (Acute) This is a 67 years old male patient presented to the emergency room because of mechanical fall, found to have acute traumatic transverse fracture of the right lateral malleolus and avulsion fracture of the right medial malleolus status post surgical repair. #1 mechanical fall/acute traumatic transverse fracture of the right lateral malleolus and avulsion fracture of the medial malleolus. Status post closed reduction and application of an external fixator. This morning, patient received 4 mg of IV morphine, became lethargic, very sleepy, hypotensive and hypoxic. When I saw the patient, he was sleepy but arousable, denies any complaints except right foot pain. Blood pressure started to improve, pulse ox is maintained on facemask with oxygen. He was given bolus of IV fluids and his blood pressure started to improve. Repeat routine blood work revealed chronic leukocytosis and chronic anemia with stable hemoglobin. Plan: Decrease IV morphine to avoid oversedation, use OxyIR as needed for pain. #2 closed head trauma: CT scan brain was negative for acute changes. He denies any headache. #3 chronic anemia/chronic leukocytosis: Stable, no evidence of infection and no evidence of active bleeding. Chronic leukocytosis secondary to being on pr ednisone for adrenal insufficiency. Baseline hemoglobin has been around 8-10 g/dL, today's hemoglobin is 9.9 g/dL, stable. No indication for transfusion. #4 Chronic hypoxic respiratory failure/COPD: On home oxygen. He is on DuoNeb every 4 hours. Pulse ox is maintained on non-rebreather mask at this time. #5 chronic dysphagia: Secondary to esophageal stricture as a result of prior throat cancer and radiation therapy. Status post PEG tube. #5 chronic renal insufficiency: Blood pressure has been low this morning which is attributed to high dose of morphine. He is on prednisone, it is continuing. Previously, patient was on fludrocortisone, need to clarify why patient is not on it anymore. May need to start IV steroids stress dose of blood pressure remains low. #7 hypothyroidism: Continue levothyroxine. #8 severe protein calorie malnutrition: Protein supplement, nutrition consult. #10 DVT prophylaxis: Start subcu Lovenox. This note was generated with Categorical dictation software. It may contain incorrect words, spelling, and punctuation that were not noted in checking the note before signing. Code Visit Inpatient E&M: 85033 Subs Hosp L2
--- NOTE | 2018-04-16 10:34 | NURSING ---
This nurse talked with Prince from Speech Therapy. He has not worked with pt today but has in the past and after reviewing his notes, Prince suggested not to feed anything to pt, keep him NPO until Hospice is back on patients case.
[2018-04-16] MEDS: oxyCODONE 5 MG Tablet GT ×2 (11:54→21:49)
[2018-04-16] MEDS: DULoxetine Hcl 60 MG Capsule PO (11:55)
[2018-04-16] MEDS: Ferrous Sulfate 300 MG/5 ML UDC GT ×2 (11:55→21:50)
[2018-04-16] MEDS: Gabapentin 800 MG Tablet GT ×2 (11:56→16:23)
[2018-04-16] MEDS: busPIRone 15 MG TABLET 10 MG GT ×2 (11:56→21:50)
[2018-04-16] MEDS: Senna/Docusate Sodium 1 Tablet GT ×2 (11:56→21:50)
[2018-04-16] MEDS: LANSOPRAZOLE 15 MG CAPSULE.DR GT (11:57)
[2018-04-16] MEDS: predniSONE 5 MG Tablet GT (11:58)
--- NOTE | 2018-04-16 15:29 | CM.UR ---
recreational vehicle repairer completed. Met face to face with patient, introduced myself and explained my role. He is slightly difficult to understand with the NRB on. He believes that his girlfriend can care for him upon discharge. States that he will stay with her until he is better. Discussed with MARIBEL Coyne that we did not get a name of current hospice. D[facility]ed [facility] possibly taking patient while he is staying in [place]. Per MARIBEL Coyne patient is agreeable to that. ? short hospice stay for pain management? Case management to continue to follow. Adi Winter RN, [facility].
[2018-04-16] MEDS: traMADol 50 MG Tablet GT (16:32)
--- NOTE | 2018-04-16 16:43 | NURSING ---
At Approximately 1300 today, This nurse contacted [facility] and was told that pt is not an active pt. This nurse asked pt what Hospice takes care of him and he stated [facility] in [place]. Oz Serna said it was okay for me to contact [facility] to have them come to talk him regarding possible inpatient unit. Pt does live with girlfriend in [place]. Aleksandr from Hospice is now here and speaking with pt and his GirlFriend Janee via phone.
--- NOTE | 2018-04-16 17:07 | NURSING ---
Dr. Biggs notified since he was application packaging specialist that this pt had Breakthrew bleeding to Rt heel from not keeping his RLE still. Likes to Move that leg constantly. Dr. Biggs informed this nurse it was okay to reinforce dressing.
[2018-04-16] MEDS: 0.9% Normal Saline 1,000 ML 999 ML IV (20:38)
[2018-04-16 20:41] LABS: Hematocrit 26.6 % (40-54); Hemoglobin 8.4 g/dl (13.0-16.5)
[2018-04-16] MEDS: Mirtazapine 15 MG Tablet GT (21:50)
[2018-04-16] MEDS: Acetaminophen 650 MG/20 ML UDC GT (21:50)
[2018-04-17] VITALS (14 sets, daily range): BP systolic 81–119; BP diastolic 48–63; PULSE 51–81; RESP 12–22; TEMP 36.1–37.1; O2SAT 96–100
[2018-04-17] MEDS: 0.9% Normal Saline 1,000 ML 999 ML IV (02:42)
[2018-04-17] MEDS: Ipratropium/Albuterol Sulfate 3 ML AMPUL.NEB INHALATION ×6 (03:24→22:37)
[2018-04-17] MEDS: traMADol 50 MG Tablet GT ×3 (03:42→22:19)
[2018-04-17] MEDS: Levothyroxine 50 MCG Tablet GT (05:06)
[2018-04-17] MEDS: tiZANidine HCl 2 MG Tablet 4 MG GT ×3 (05:06→22:17)
[2018-04-17] MEDS: Levothyroxine 112 MCG Tablet GT (05:06)
[2018-04-17] MEDS: LANSOPRAZOLE 15 MG CAPSULE.DR GT (08:04)
[2018-04-17] MEDS: Senna/Docusate Sodium 1 Tablet GT ×2 (08:04→22:20)
[2018-04-17] MEDS: Gabapentin 800 MG Tablet GT ×3 (08:04→18:26)
[2018-04-17] MEDS: Ferrous Sulfate 300 MG/5 ML UDC GT ×2 (08:04→22:17)
[2018-04-17] MEDS: DULoxetine Hcl 60 MG Capsule PO (08:05)
[2018-04-17] MEDS: busPIRone 15 MG TABLET 10 MG GT ×2 (08:05→22:19)
[2018-04-17] MEDS: oxyCODONE 5 MG Tablet GT ×2 (08:14→15:31)
[2018-04-17] MEDS: Enoxaparin 40 MG/0.4 ML Syringe SC (08:14)
--- NOTE | 2018-04-17 08:31 | NURSING ---
BP low, 86/50 Manually, HR 59. Pt is much more aware and alert this morning then yesterday morning. A&OX3. Continues to be on Continuous pulse ox and is 100% on 50% Ventimask. BP was reported via Cortext to Dr. Tariq. No new orders thus far.
--- NOTE | 2018-04-17 10:03 | PN_ITS ---
Patient Problems: Active and Suspected Problems Bimalleolar fracture of right ankle (Acute) Blister (Acute) Ankle fracture, right (Acute) Subjective: Chief complaint: Follow-up after admission for acute traumatic transverse fracture of the right lateral malleolus and a avulsion fracture of the medial malleolus of the right ankle, status post closed reduction of the right ankle fracture with application of external fixation. Patient seen and examined. No acute events overnight. Today, he mentioned that his right foot pain is manageable. Nursing staff reports that his pulse has been borderline, fluctuating. Patient is a symptomatic, denies chest pain or shortness of breath. Denied headache, dizziness, syncope or presyncope. He is afebrile, blood pressures in the lower side, heart rate stable, pulse ox is 100% on Ventimask. - Physical Exam General: Alert, Oriented x3, Cooperative, No apparent distress HEENT: Atraumatic, PERRLA, EOMI, Normocephalic Oral: Moist Mucosa, No Gingival or Mucosal Lesions/ Ulcerations Neck: Supple, No JVD, Negative Carotid Bruits, Trachea Midline, Thyroid Normal Size and Texture Lungs: Clear to auscultation, No rhonchi, No wheeze, No rales, Diminished Cardiovascular: Regular rate, Regular Rhythm, Normal S1, Normal S2, PMI Normal Abdomen: Bowel Sounds Present, Soft, Non Tender, Non-Distended, No Hepato- splenomegaly, - - PEG tube in place. Extremities: No clubbing, No cyanosis, No edema Skin: No rashes, No breakdown Lymphatic: No Cervical, Supraclavicular, or Inguinal Adenopathy Neurological: Cranial nerves II-XII grossly intact, Neuro grossly intact Psych/Mental Status: Normal Affect, Appropriate, Alert and oriented to time, place, person, mood and affect Vital Signs Temp Pulse Resp BP Pulse Ox 97.6 F L 59 L 12 86/50 L 100 04/17/18 07:50 04/17/18 07:50 04/17/18 07:50 04/17/18 07:50 04/17/18 07:50 Oxygen Flow Rate (L/min) [1] 15 Oxygen Flow Rate (L/min) [6] 3 Oxygen Flow Rate (L/min) [5] 3 Oxygen Flow Rate (L/min) [3] 15 Oxygen Flow Rate (L/min) 12 Oxygen Delivery Method [1] Non-Rebreather Oxygen Delivery Method [6] Nasal Cannula Oxygen Delivery Method [5] Nasal Cannula Oxygen Delivery Method [4] Non-Rebreather Oxygen Delivery Method [3] Non-Rebreather Oxygen Delivery Method [2] Nasal Cannula Oxygen Delivery Method Venturi Mask Weight: 126 lb 1.671 oz Body Mass Index (BMI) 17.1 Intake and Output for Last 24 Hours 04/15/18 04/16/18 04/17/18 23:59 23:59 23:59 Intake Total 620 / 620 2023 2464 / 2464 Output Total 200 / 200 1325 / 1325 650 / 650 Balance 420 / 420 699 / 699 1814 / 1814 Laboratory Tests Past 24 Hrs 04/16/18 20:30 Hgb 8.4 L Hct 26.6 L Medical Necessity - Tobacco Use Smoking Status: Former smoker Tobacco Use: Non-smoker Assessment/Plan All Active Problems Bimalleolar fracture of right ankle (Acute) Blister (Acute) Ankle fracture, right (Acute) This is a 67 years old male patient presented to the emergency room because of mechanical fall, found to have acute traumatic transverse fracture of the right lateral malleolus and avulsion fracture of the right medial malleolus status post surgical repair. #1 mechanical fall/acute traumatic transverse fracture of the right lateral malleolus and avulsion fracture of the medial malleolus. Status post closed reduction and application of an external fixator, postoperative day 1. He is on IV morphine and OxyIR as needed for pain his right foot pain is manageable. His blood pressure has been borderline overnight, received 2 boluses of IV fluids. CBC and BMP from today reviewed. Podiatry medicine on the case, plan to continue same treatment. Patient will need placement to detention facility. #2 asymptomatic mild hypotension: This is likely because patient has been on prednisone for history of renal insufficiency. He did not receive stress dose of IV steroids preoperatively. He received boluses of IV fluids. He is asymptomatic. Plan: Start IV hydrocortisone 50 mg every 8 hours, hold prednisone. #3 closed head trauma: CT scan brain was negative for acute changes. He denies any headache. #3 chronic anemia/chronic leukocytosis: Stable, no evidence of infection and no evidence of active bleeding. Chronic leukocytosis secondary to being on prednisone for adrenal insufficiency. Baseline hemoglobin has been around 8-10 g/dL, today's hemoglobin is 8.4 g/dL, stable. Plan to repeat CBC tomorrow morning. #4 Chronic hypoxic respiratory failure/COPD: On home oxygen at 2 L. He is on DuoNeb every 4 hours. Pulse ox is maintained on non-rebreather mask at this time. #5 chronic dysphagia: Secondary to esophageal stricture as a result of prior throat cancer and radiation therapy. Status post PEG tube, continue tube feeds. #5 chronic adrenal insufficiency: He is on prednisone long-term. Because of persistent low blood pressure, I will start stress dose of IV hydrocortisone as above. #7 hypothyroidism: Continue levothyroxine. #8 severe protein calorie malnutrition: Protein supplement, nutrition consult. #10 DVT prophylaxis: Continue subcu Lovenox. This note was generated with [email or web address] dictation software. It may contain incorrect words, spelling, and punctuation that were not noted in checking the note before signing. Code Visit Inpatient E&M: 07719 Subs Hosp L2
[2018-04-17] MEDS: Jevity 1.5. 1,000 ML Bottle 240 ML GT ×4 (12:24→22:21)
[2018-04-17] MEDS: Hydrocortisone Sod Succinate 100 MG/2 ML Vial 50 MG IV ×2 (15:30→22:19)
--- NOTE | 2018-04-17 16:08 | NURSING ---
Girlfriend Janee,. had a 15 min conversation with this nurse and was very upset over the fact that pt is NPO. Every doctor he sees and hospice agreed that is is fine to have water or liquids to drink. He needs it to be able to talk clearly and be able to bring up phelgm., I educated both pt and Janee Truong (Girlfriend) of risks. He is not here for his lungs, he does not Aspirate. His doctors told me he doesn't. If you do not give him liquids to drink, I will and I will stay here all the time to make sure he gets something to drink. This nurse talked about Speech Therapy recommendations and Ms. Truong responded with I'm his POA and I do not want Speech Therapy to see him while he is here. After searching POA papers from our records, Ms. Janee Truong is not the POA at this time. It is the [facility] whom is current and if she is unable too, then Ms. Janee Truong is second. Dr. Bernabeah aware of all this, order obtained to let patient take liquids by mouth only for comfort since pt and Girlfriend are not cooperating with staff despite education. When asked again about Speech Therapy, Pt also refuses to have speech therapy see him.
--- NOTE | 2018-04-17 17:28 | PCM.PROGNOTE ---
Patient Problems: Active and Suspected Problems Bimalleolar fracture of right ankle (Acute) Blister (Acute) Ankle fracture, right (Acute) Subjective: This 67-year-old male was seen bedside postoperative day #2 closed reduction of right ankle fracture with application of external fixation due to bimalleolar unstable ankle fracture and fracture blisters. He denies fever, chill, nausea, vomiting, calf pain, shortness of breath, chest pain. He has decreased and controlled pain to his right ankle. His girlfriend is bedside. - Physical Exam General: Alert, Cooperative Extremities: Capillary Refill Less than 3 Seconds - Right foot all digits, No Calf Tenderness - Negative Crawley sign bilateral, Diminished Peripheral Pulses, Tenderness - Tenderness with palpation near fracture site and fracture blister sites Skin: - - Pin sites to external fixation. Healthy without signs of infection. The drain fracture blister sites to the medial lateral malleolus that extends nearly circumferential have deep ecchymotic non-blanchable discoloration. There is no erythema no purulence no streaking no odor no acute signs of infection. There are no new blister formation sites noted to the foot ankle or leg on the right lower extremity Musculoskeletal: Muscle Wasting, - - Active range of motion digits x5 right lower extremity Neurological: - - Epicritic sensation intact to light touch right lower extremity Psych/Mental Status: Normal Affect, Appropriate Vital Signs Temp Pulse Resp BP Pulse Ox 97.9 F 69 14 101/48 L 100 04/17/18 15:35 04/17/18 15:35 04/17/18 15:35 04/17/18 15:35 04/17/18 15:35 Oxygen Flow Rate (L/min) [1] 15 Oxygen Flow Rate (L/min) [6] 3 Oxygen Flow Rate (L/min) [5] 3 Oxygen Flow Rate (L/min) [3] 15 Oxygen Flow Rate (L/min) 12 Oxygen Delivery Method [1] Non-Rebreather Oxygen Delivery Method [6] Nasal Cannula Oxygen Delivery Method [5] Nasal Cannula Oxygen Delivery Method [4] Non-Rebreather Oxygen Delivery Method [3] Non-Rebreather Oxygen Delivery Method [2] Nasal Cannula Oxygen Delivery Method Venturi Mask Weight: 57.2 kg Body Mass Index (BMI) 17.1 Intake and Output for Last 24 Hours 04/15/18 04/16/18 04/17/18 23:59 23:59 23:59 Intake Total 620 / 620 2023 / 2023 4054 / 4054 Output Total 200 / 200 1325 / 1325 900 / 900 Balance 420 / 420 699 / 699 3154 / 3154 Laboratory Tests Past 24 Hrs 04/16/18 20:30 Hgb 8.4 L Hct 26.6 L Medical Necessity - Tobacco Use Smoking Status: Former smoker Tobacco Use: Non-smoker Assessment/Plan All Active Problems Bimalleolar fracture of right ankle (Acute) Blister (Acute) Ankle fracture, right (Acute) Postoperative day # 2 closed reduction application of external fixation right bimalleolar ankle fracture Fracture blisters Severe malnutrition (history of throat cancer with dysphagia and PEG placement) Significant past medical history of COPD, hypothyroidism, depression, GERD I reviewed and discussed his case. His vital signs remained stable and the medical team has been managing his hypotension. He was given 2 L of normal saline yesterday. He does have some leukocytosis which may be post trauma or anesthesia. There were no local lower extremity signs of infection. This will be monitored. He was advised to ice and elevate to reduce edema and pain. He has been taking pain medicine and his pain is better controlled today. To maintain a strict nonweightbearing status. The pin sites were gently cleansed and new Xeroform was applied to the pin sites. Adaptic and overlying gauze were applied to the fracture blister sites. This was well-padded to reduce edema and the entire external fixation device was also covered with Grzegorz wraps. The anticipated timeframe is 2-6 weeks for this staged procedure. Medical management and DVT prophylaxis per primary team is greatly appreciated. I will continue to follow him closely while in house. To continue with nutritional supplementation to optimize healing; it is noted nutrition services is on consult. He was also advised to use his incentive spirometer hourly while awake. Discharge planning per social work is appreciated. Please not hesitate to call if you have any questions. Sima Louise DPM, FAC[facility] [phone]
[2018-04-17] MEDS: Mirtazapine 15 MG Tablet GT (22:19)
[2018-04-17] MEDS: Acetaminophen 650 MG/20 ML UDC GT (22:20)
[2018-04-18] VITALS (14 sets, daily range): BP systolic 93–135; BP diastolic 50–74; PULSE 59–74; RESP 16–20; TEMP 36.4–36.6; O2SAT 95–100
[2018-04-18] MEDS: oxyCODONE 5 MG Tablet GT ×4 (01:52→21:09)
[2018-04-18] MEDS: Ipratropium/Albuterol Sulfate 3 ML AMPUL.NEB INHALATION ×6 (02:59→22:45)
[2018-04-18] MEDS: traMADol 50 MG Tablet GT ×2 (05:50→13:24)
[2018-04-18] MEDS: Levothyroxine 50 MCG Tablet GT (05:50)
[2018-04-18] MEDS: Levothyroxine 112 MCG Tablet GT (05:50)
[2018-04-18] MEDS: tiZANidine HCl 2 MG Tablet 4 MG GT ×3 (05:50→21:09)
[2018-04-18] MEDS: Jevity 1.5. 1,000 ML Bottle 240 ML GT ×5 (05:51→21:12)
[2018-04-18] MEDS: Hydrocortisone Sod Succinate 100 MG/2 ML Vial 50 MG IV ×3 (05:51→21:07)
[2018-04-18] MEDS: Acetaminophen 650 MG/20 ML UDC GT (08:25)
[2018-04-18] MEDS: Gabapentin 800 MG Tablet GT ×3 (08:25→17:57)
[2018-04-18] MEDS: Senna/Docusate Sodium 1 Tablet GT (08:25)
[2018-04-18] MEDS: Enoxaparin 40 MG/0.4 ML Syringe SC (08:25)
[2018-04-18] MEDS: DULoxetine Hcl 60 MG Capsule PO (08:25)
[2018-04-18] MEDS: Ferrous Sulfate 300 MG/5 ML UDC GT ×2 (08:25→21:08)
[2018-04-18] MEDS: busPIRone 15 MG TABLET 10 MG GT ×2 (10:27→21:09)
[2018-04-18] MEDS: LANSOPRAZOLE 15 MG CAPSULE.DR GT (10:27)
--- NOTE | 2018-04-18 10:30 | CASEMGMT ---
MARIBEL CASTILLO called and updated [facility] that patient is ready for discharge. Per Aleksandr at [facility], Dr Lai, medical grade shoemaker at [facility] will have to complete Face to Face with patient prior to admission to Hospice. Per Aleksandr, plan is for potential inpatient stay at [facility] and then transition to significant others home in [place] with hospice. Hospice will continue to work with patient and plan for a safe discharge.
--- NOTE | 2018-04-18 12:59 | DCINST_ITS ---
- Discharge Diagnoses Current Active Problems: Current Active and Chronic Problems Bimalleolar fracture of right ankle (Acute) Blister (Acute) COPD (chronic obstructive pulmonary disease) (Chronic) Severe malnutrition (Chronic) Ankle fracture, right (Acute) You will use the following diet at home:: Other - TUBE FEEDS Discharge Activity: No Restrictions Allergies/Adverse Reactions: Allergies No Known Allergies Allergy (Verified 02/09/17 14:11) Medications to take at Discharge Buspirone HCl 10 mg GT BID 08/16/17 Duloxetine HCl 60 mg GT DAILY 08/16/17 Gabapentin [Neurontin] 800 mg GT TIDCM 08/16/17 Ipratropium/Albuterol Sulfate [Duoneb] 3 ml INHALATION Q4H.RT 08/16/17 Levothyroxine Sodium [Levoxyl] 150 mcg GT DAILY 08/16/17 Mirtazapine [Remeron] 15 mg GT QHS 08/16/17 Omeprazole [Prilosec] 20 mg GT DAILY 08/16/17 Tramadol HCl [Ultram] 50 mg GT Q8H PRN PRN 08/16/17 Acetaminophen [Mapap] 650 mg GT Q6H PRN PRN 04/14/18 Ascorbic Acid [Vitamin C] 500 mg GT DAILY 04/14/18 Aspirin 81 mg GT DAILY 04/14/18 Cholecalciferol (VIT D3) [Vitamin D3] 04/14/18 Clobetasol Propionate/Emoll [Clobetasol Emollient 0.05% Crm] 1 each TP DAILY 04/14/18 Ferrous Sulfate Syrup 300 mg GT BID 04/14/18 Meclizine HCl 25 mg GT BID PRN PRN 04/14/18 Ondansetron HCl [Zofran Solution] 8 mg GT DAILY PRN PRN 04/14/18 Prednisone 5 mg GT DAILY 04/14/18 Senna/Docusate Sodium [Senokot-S] 1 tab GT BID 04/14/18 Sennosides/Docusate Sodium [Senna-S Tablet] 1 each GT BID 04/14/18 Tizanidine HCl 4 mg GT TID 04/14/18 Zolpidem Tartrate [Ambien] 5 mg GT QHS 04/14/18 Lactose-Reduced Food [Ensure Plus] 237 ml GT 4X/DAY 04/16/18 Jevity 1.5 240 ml GT 5X/DAY bottle 04/18/18 traMADol [Ultram] 50 mg GT Q6H PRN PRN 5 Days #20 tablet 04/18/18 The following prescriptions were given: traMADol [Ultram] 50 mg GT Q6H PRN PRN 5 Days #20 tablet PRN Reason: Pain Primary Care Physician: Soheila Moore MD [Primary Care Provider] - Please follow up with your Primary Care Physician in: IN 1-2 WEEKS Test Results: Test results from this visit will be discussed in further detail at your follow- up appointment, if applicable. Please Follow Up With: Sima Louise DPM When: IN 1 WEEK Proposed Discharge Date: 04/18/18
--- NOTE | 2018-04-18 13:01 | PCM.DC.SUM ---
Discharge Date and Diagnosis - Problem List Patient Problems: Active and Suspected Problems Bimalleolar fracture of right ankle (Acute) Blister (Acute) Ankle fracture, right (Acute) Date of Admission: 04/14/18 Date of Discharge: 04/18/18 - Primary Discharge Diagnosis Active and Suspected Problems Bimalleolar fracture of right ankle (Acute) Blister (Acute) Ankle fracture, right (Acute) - Secondary Discharge Diagnosis Chronic Problems COPD (chronic obstructive pulmonary disease) (Chronic) Severe malnutrition (Chronic) Status post insertion of percutaneous endoscopic gastrostomy (PEG) tube (Chronic) GERD (gastroesophageal reflux disease) (Chronic) Hypothyroidism (Chronic) Depression (Chronic) History of throat cancer (Chronic) Dysphagia (Chronic) Hospital Course and Treatment Operations: None Summary of Care Provided: The patient is a 67 year old M with past medical history is again for chronic dysphagia as a result of esophageal stricture resulting from throat CA and subsequent radiation therapy status post PEG tube placement who was under hospice care presented following a fall patient was found to have traumatic transverse fracture of the right lateral malleolus and avulsion fracture of the right medial malleolus. Admitted to regular nursing floor with consultation placed to podiatry 1. Acute mechanical fall with traumatic transverse fracture of the right lateral malleolus and avulsion fracture of the right medial malleolus. Admitted to regular nursing floor with consultation placed to podiatry. Patient underwent closed reduction of right ankle fracture with application of external fixation on 04/15/18 by Sima Louise DPM 2. History of adrenal insufficiency patient is on chronic steroid. On prednisone held treated with IV hydrocortisone prednisone resumed on discharge 3. Closed head injury CT negative for acute bleed no fracture 4. Chronic hypoxic respiratory failure secondary to COPD patient is on baseline home O2 in addition to bronchodilator treatment this was continued 5. History of throat CA status post radiation therapy with subsequent esophageal stricture patient has a PEG tube 6. Anemia secondary to anemia of chronic disorder as well as acute blood loss anemia did monitor H&H 7. Hypothyroidism-patient is on levothyroxine home dose continued 8. Severe protein calorie malnutrition patient is on nutritional supplementation 9. Chronic dysphagia secondary to esophageal stricture management as discussed above 10. DVT prophylaxis SC Lovenox Patient Problems: Active and Suspected Problems Bimalleolar fracture of right ankle (Acute) Blister (Acute) Ankle fracture, right (Acute) - Physical Exam General: No apparent distress HEENT: Atraumatic Lungs: Diminished Cardiovascular: Regular rate, Regular Rhythm Neurological: Neuro grossly intact Psych/Mental Status: Normal Affect Vital Signs Temp Pulse Resp BP Pulse Ox 97.7 F L 66 19 H 112/60 97 04/18/18 10:20 04/18/18 12:02 04/18/18 12:02 04/18/18 10:20 04/18/18 10:20 Oxygen Flow Rate (L/min) [1] 15 Oxygen Flow Rate (L/min) [6] 3 Oxygen Flow Rate (L/min) [5] 3 Oxygen Flow Rate (L/min) [3] 15 Oxygen Flow Rate (L/min) 2 Oxygen Delivery Method [1] Non-Rebreather Oxygen Delivery Method [6] Nasal Cannula Oxygen Delivery Method [5] Nasal Cannula Oxygen Delivery Method [4] Non-Rebreather Oxygen Delivery Method [3] Non-Rebreather Oxygen Delivery Method [2] Nasal Cannula Oxygen Delivery Method Nasal Cannula Weight: 57.2 kg Body Mass Index (BMI) 17.1 Intake and Output for Last 24 Hours 04/16/18 04/17/18 04/18/18 23:59 23:59 23:59 Intake Total 2023 5124 / 5124 1720 / 1720 Output Total 1325 / 1325 1300 / 1300 1400 / 1400 Balance 699 / 699 3824 / 3824 320 / 320 Discharge Diet: - - tube feed Discharge Activity: No Restrictions Home Medications: Medications to take at Discharge Buspirone HCl 10 mg GT BID 08/16/17 Duloxetine HCl 60 mg GT DAILY 08/16/17 Gabapentin [Neurontin] 800 mg GT TIDCM 08/16/17 Ipratropium/Albuterol Sulfate [Duoneb] 3 ml INHALATION Q4H.RT 08/16/17 Levothyroxine Sodium [Levoxyl] 150 mcg GT DAILY 08/16/17 Mirtazapine [Remeron] 15 mg GT QHS 08/16/17 Omeprazole [Prilosec] 20 mg GT DAILY 08/16/17 Tramadol HCl [Ultram] 50 mg GT Q8H PRN PRN 08/16/17 Acetaminophen [Mapap] 650 mg GT Q6H PRN PRN 04/14/18 Ascorbic Acid [Vitamin C] 500 mg GT DAILY 04/14/18 Aspirin 81 mg GT DAILY 04/14/18 Cholecalciferol (VIT D3) [Vitamin D3] 04/14/18 Clobetasol Propionate/Emoll [Clobetasol Emollient 0.05% Crm] 1 each TP DAILY 04/14/18 Ferrous Sulfate Syrup 300 mg GT BID 04/14/18 Meclizine HCl 25 mg GT BID PRN PRN 04/14/18 Ondansetron HCl [Zofran Solution] 8 mg GT DAILY PRN PRN 04/14/18 Prednisone 5 mg GT DAILY 04/14/18 Senna/Docusate Sodium [Senokot-S] 1 tab GT BID 04/14/18 Sennosides/Docusate Sodium [Senna-S Tablet] 1 each GT BID 04/14/18 Tizanidine HCl 4 mg GT TID 04/14/18 Zolpidem Tartrate [Ambien] 5 mg GT QHS 04/14/18 Lactose-Reduced Food [Ensure Plus] 237 ml GT 4X/DAY 04/16/18 Jevity 1.5 240 ml GT 5X/DAY bottle 04/18/18 traMADol [Ultram] 50 mg GT Q6H PRN PRN 5 Days #20 tablet 04/18/18 Following Prescrptions Were Given to Patient: traMADol [Ultram] 50 mg GT Q6H PRN PRN 5 Days #20 tablet PRN Reason: Pain Primary Care Physician: Soheila Moore MD [Primary Care Provider] - Please follow up with your Primary Care Physician in: IN 1-2 WEEKS Please Follow Up With: Sima Louise DPM When: IN 1 WEEK Disposition: Hospice Medical Facility Minutes spent on discharge:: 45 Patient Condition:: Fair Medical Necessity - Tobacco Use Smoking Status: Former smoker Tobacco Use: Non-smoker Meaningful Use Info Meaningful Use Diagnoses (Choose all that apply): None applicable Code Visit Inpatient E&M: 51401 Disch Hosp
[2018-04-18] MEDS: 0.9% NaCl Peripheral Flush Adult/Peds IV ×2 (13:25→21:09)
--- NOTE | 2018-04-18 13:35 | PCM.PN.HOSP ---
Patient Problems: Active and Suspected Problems Bimalleolar fracture of right ankle (Acute) Blister (Acute) Ankle fracture, right (Acute) Subjective: The patient is a 67 year old M with past medical history is again for chronic dysphagia as a result of esophageal stricture resulting from throat CA and subsequent radiation therapy status post PEG tube placement who was under hospice care presented following a fall patient was found to have traumatic transverse fracture of the right lateral malleolus and avulsion fracture of the right medial malleolus. Admitted to regular nursing floor with consultation placed to podiatry Objective: GENERAL: Not in distress HEENT: Atraumatic; EYES; Anicteric, Normal Conjunctiva NECK; supple, normal thyroid, RESPIRATORY: Diminished to auscultation bilaterally, CARDIOVASCULAR: Regular S1 S2, GI: soft, non-tender, normoactive bowel sounds, : No Renal angle tenderness; EXTREMITIES: No edema, no clubbing, no cyanosis. MUSCULOSKELETAL: Right ankle with an external fixator surgical dressing NEURO: Awake; no lateralizing signs. SKIN: No Rash PSYCH; Normal affect Vitals/I&O's: Vital Signs Temp Pulse Resp BP Pulse Ox 97.7 F L 66 19 H 112/60 97 04/18/18 10:20 04/18/18 12:02 04/18/18 12:02 04/18/18 10:20 04/18/18 10:20 Oxygen Flow Rate (L/min) [1] 15 Oxygen Flow Rate (L/min) [6] 3 Oxygen Flow Rate (L/min) [5] 3 Oxygen Flow Rate (L/min) [3] 15 Oxygen Flow Rate (L/min) 2 Oxygen Delivery Method [1] Non-Rebreather Oxygen Delivery Method [6] Nasal Cannula Oxygen Delivery Method [5] Nasal Cannula Oxygen Delivery Method [4] Non-Rebreather Oxygen Delivery Method [3] Non-Rebreather Oxygen Delivery Method [2] Nasal Cannula Oxygen Delivery Method Nasal Cannula Weight: 57.2 kg Body Mass Index (BMI) 17.1 Intake and Output for Last 24 Hours 04/16/18 04/17/18 04/18/18 23:59 23:59 23:59 Intake Total 2023 / 2023 5124 / 5124 1720 / 1720 Output Total 1325 / 1325 1300 / 1300 1400 / 1400 Balance 699 / 699 3824 / 3824 320 / 320 Current Medications Acetaminophen (Tylenol Liquid) 650 mg GT Q6H PRN PRN PRN Reason: Mild Pain (1-3)/Temp > 100.7 Last Admin: 04/18/18 08:25 Dose: 650 mg Albuterol/Ipratropium (Duoneb) [address] [facility] Last Admin: 04/18/18 11:30 Dose: 3 ml Buspirone HCl (Buspar) [address] [facility] Last Admin: 04/18/18 10:27 Dose: 10 mg Clobetasol Propionate (Temovate Cream (Bkc)) [address] [facility]; Protocol Last Admin: 04/18/18 08:26 Dose: Not Given Duloxetine HCl (Cymbalta) [address] [facility] Last Admin: 04/18/18 08:25 Dose: 60 mg Enoxaparin Sodium (Lovenox) [address] [facility] Last Admin: 04/18/18 08:25 Dose: 40 mg Enteral Nutritional Formula (Jevity 1.5) 240 ml GT 5X/DAY [facility] Last Admin: 04/18/18 10:28 Dose: 240 ml Ferrous Sulfate (Ferrous Sulfate Syrup) [address] [facility] Last Admin: 04/18/18 08:25 Dose: 300 mg Gabapentin (Neurontin) [address] [facility] Last Admin: 04/18/18 08:25 Dose: 800 mg Hydrocortisone Sodium Succinate (Solu-Cortef) [address] [facility] Last Admin: 04/18/18 05:51 Dose: 50 mg Lansoprazole (Lansoprazole) [address] [facility] Last Admin: 04/18/18 10:27 Dose: 15 mg Levothyroxine Sodium (Synthroid) 50 mcg GT DAILY@0600 [facility] Last Admin: 04/18/18 05:50 Dose: 50 mcg Levothyroxine Sodium (Synthroid) 112 mcg GT DAILY@0600 [facility] Last Admin: 04/18/18 05:50 Dose: 112 mcg Magnesium Hydroxide (Milk Of Magnesia) 30 ml GT DAILY PRN PRN PRN Reason: Constipation Meclizine HCl (Antivert) 25 mg GT BID PRN PRN PRN Reason: OTHER Mirtazapine (Remeron) [address] [facility] Last Admin: 04/17/18 22:19 Dose: 15 mg Morphine Sulfate () 1 - 2 mg IV Q4H PRN PRN PRN Reason: MOD-SEVERE PAIN (4-10/10) Last Admin: 04/16/18 12:16 Dose: 2 mg Ondansetron HCl (Zofran Odt) 8 mg GT DAILY PRN PRN PRN Reason: NAUSEA Oxycodone HCl (Oxyir) 5 - 10 mg GT Q4H PRN PRN PRN Reason: MOD-SEVERE PAIN (4-10/10) Last Admin: 04/18/18 10:26 Dose: 5 mg Senna/Docusate Sodium (Senokot-S, Marcela-Colace) 1 tablet GT BID [facility] Last Admin: 04/18/18 08:25 Dose: 1 tablet Sodium Chloride () 5 - 15 ml IV UD PRN PRN Reason: SALINE FLUSH Last Admin: 04/16/18 12:17 Dose: 10 ml Tizanidine HCl (Zanaflex) 4 mg GT TID [facility] Last Admin: 04/18/18 05:50 Dose: 4 mg Tramadol HCl (Ultram) 50 mg GT Q8H PRN PRN PRN Reason: PAIN Last Admin: 04/18/18 05:50 Dose: 50 mg Zolpidem Tartrate (Ambien (Generic)) 5 mg GT QHS [facility] Last Admin: 04/17/18 22:32 Dose: Not Given Medical Necessity - Tobacco Use Smoking Status: Former smoker Tobacco Use: Non-smoker Assessment/Plan All Active Problems Bimalleolar fracture of right ankle (Acute) Blister (Acute) Ankle fracture, right (Acute) The patient is a 67 year old M with past medical history is again for chronic dysphagia as a result of esophageal stricture resulting from throat CA and subsequent radiation therapy status post PEG tube placement who was under hospice care presented following a fall patient was found to have traumatic transverse fracture of the right lateral malleolus and avulsion fracture of the right medial malleolus. Admitted to regular nursing floor with consultation placed to podiatry 1. Acute mechanical fall with traumatic transverse fracture of the right lateral malleolus and avulsion fracture of the right medial malleolus. Admitted to regular nursing floor with consultation placed to podiatry. Patient underwent closed reduction of right ankle fracture with application of external fixation on 04/15/18 by Sima Louise DPM 2. History of adrenal insufficiency patient is on chronic steroid. On prednisone held treated with IV hydrocortisone 3. Closed head injury CT negative for acute bleed no fracture 4. Chronic hypoxic respiratory failure secondary to COPD patient is on baseline home O2 in addition to bronchodilator treatment this was continued 5. History of throat CA status post radiation therapy with subsequent esophageal stricture patient has a PEG tube 6. Anemia secondary to anemia of chronic disorder as well as acute blood loss anemia did monitor H&H 7. Hypothyroidism-patient is on levothyroxine home dose continued 8. Severe protein calorie malnutrition patient is on nutritional supplementation 9. Chronic dysphagia secondary to esophageal stricture management as discussed above 10. DVT prophylaxis SC Lovenox Code Visit Inpatient E&M: 46940 Subs Hosp L2
--- NOTE | 2018-04-18 13:41 | PN_ITS ---
Patient Problems: Active and Suspected Problems Bimalleolar fracture of right ankle (Acute) Blister (Acute) Ankle fracture, right (Acute) Subjective: The patient is a 67 year old M with past medical history is again for chronic dysphagia as a result of esophageal stricture resulting from throat CA and subsequent radiation therapy status post PEG tube placement who was under hospice care presented following a fall patient was found to have traumatic transverse fracture of the right lateral malleolus and avulsion fracture of the right medial malleolus. Admitted to regular nursing floor with consultation placed to podiatry Objective: GENERAL: Not in distress HEENT: Atraumatic; EYES; Anicteric, Normal Conjunctiva NECK; supple, normal thyroid, RESPIRATORY: Diminished to auscultation bilaterally, CARDIOVASCULAR: Regular S1 S2, GI: soft, non-tender, normoactive bowel sounds, : No Renal angle tenderness; EXTREMITIES: No edema, no clubbing, no cyanosis. MUSCULOSKELETAL: Right ankle with an external fixator surgical dressing NEURO: Awake; no lateralizing signs. SKIN: No Rash PSYCH; Normal affect Vitals/I&O's: Vital Signs Temp Pulse Resp BP Pulse Ox 97.7 F L 66 19 H 112/60 97 04/18/18 10:20 04/18/18 12:02 04/18/18 12:02 04/18/18 10:20 04/18/18 10:20 Oxygen Flow Rate (L/min) [1] 15 Oxygen Flow Rate (L/min) [6] 3 Oxygen Flow Rate (L/min) [5] 3 Oxygen Flow Rate (L/min) [3] 15 Oxygen Flow Rate (L/min) 2 Oxygen Delivery Method [1] Non-Rebreather Oxygen Delivery Method [6] Nasal Cannula Oxygen Delivery Method [5] Nasal Cannula Oxygen Delivery Method [4] Non-Rebreather Oxygen Delivery Method [3] Non-Rebreather Oxygen Delivery Method [2] Nasal Cannula Oxygen Delivery Method Nasal Cannula Weight: 57.2 kg Body Mass Index (BMI) 17.1 Intake and Output for Last 24 Hours 04/16/18 04/17/18 04/18/18 23:59 23:59 23:59 Intake Total 2023 / 2023 5124 / 5124 1720 / 1720 Output Total 1325 / 1325 1300 / 1300 1400 / 1400 Balance 699 / 699 3824 / 3824 320 / 320 Current Medications Acetaminophen (Tylenol Liquid) 650 mg GT Q6H PRN PRN PRN Reason: Mild Pain (1-3)/Temp > 100.7 Last Admin: 04/18/18 08:25 Dose: 650 mg Albuterol/Ipratropium (Duoneb) 3 ml INHALATION Q4H.RT [facility] Last Admin: 04/18/18 11:30 Dose: 3 ml Buspirone HCl (Buspar) 10 mg GT BID [facility] Last Admin: 04/18/18 10:27 Dose: 10 mg Clobetasol Propionate (Temovate Cream (Bkc)) 1 applic TOPICAL DAILY [facility]; Protocol Last Admin: 04/18/18 08:26 Dose: Not Given Duloxetine HCl (Cymbalta) 60 mg PO DAILY [facility] Last Admin: 04/18/18 08:25 Dose: 60 mg Enoxaparin Sodium (Lovenox) 40 mg SC DAILY [facility] Last Admin: 04/18/18 08:25 Dose: 40 mg Enteral Nutritional Formula (Jevity 1.5) 240 ml GT 5X/DAY [facility] Last Admin: 04/18/18 10:28 Dose: 240 ml Ferrous Sulfate (Ferrous Sulfate Syrup) 300 mg GT BID [facility] Last Admin: 04/18/18 08:25 Dose: 300 mg Gabapentin (Neurontin) 800 mg GT TIDCM [facility] Last Admin: 04/18/18 08:25 Dose: 800 mg Hydrocortisone Sodium Succinate (Solu-Cortef) 50 mg IV Q8 [facility] Last Admin: 04/18/18 05:51 Dose: 50 mg Lansoprazole (Lansoprazole) 15 mg GT DAILY [facility] Last Admin: 04/18/18 10:27 Dose: 15 mg Levothyroxine Sodium (Synthroid) 50 mcg GT DAILY@0600 [facility] Last Admin: 04/18/18 05:50 Dose: 50 mcg Levothyroxine Sodium (Synthroid) 112 mcg GT DAILY@0600 [facility] Last Admin: 04/18/18 05:50 Dose: 112 mcg Magnesium Hydroxide (Milk Of Magnesia) 30 ml GT DAILY PRN PRN PRN Reason: Constipation Meclizine HCl (Antivert) 25 mg GT BID PRN PRN PRN Reason: OTHER Mirtazapine (Remeron) 15 mg GT QHS [facility] Last Admin: 04/17/18 22:19 Dose: 15 mg Morphine Sulfate () 1 - 2 mg IV Q4H PRN PRN PRN Reason: MOD-SEVERE PAIN (4-10/10) Last Admin: 04/16/18 12:16 Dose: 2 mg Ondansetron HCl (Zofran Odt) 8 mg GT DAILY PRN PRN PRN Reason: NAUSEA Oxycodone HCl (Oxyir) 5 - 10 mg GT Q4H PRN PRN PRN Reason: MOD-SEVERE PAIN (4-10/10) Last Admin: 04/18/18 10:26 Dose: 5 mg Senna/Docusate Sodium (Senokot-S, Marcela-Colace) 1 tablet GT BID [facility] Last Admin: 04/18/18 08:25 Dose: 1 tablet Sodium Chloride () 5 - 15 ml IV UD PRN PRN Reason: SALINE FLUSH Last Admin: 04/16/18 12:17 Dose: 10 ml Tizanidine HCl (Zanaflex) 4 mg GT TID [facility] Last Admin: 04/18/18 05:50 Dose: 4 mg Tramadol HCl (Ultram) 50 mg GT Q8H PRN PRN PRN Reason: PAIN Last Admin: 04/18/18 05:50 Dose: 50 mg Zolpidem Tartrate (Ambien (Generic)) 5 mg GT QHS [facility] Last Admin: 04/17/18 22:32 Dose: Not Given Medical Necessity - Tobacco Use Smoking Status: Former smoker Tobacco Use: Non-smoker Assessment/Plan All Active Problems Bimalleolar fracture of right ankle (Acute) Blister (Acute) Ankle fracture, right (Acute) The patient is a 67 year old M with past medical history is again for chronic dysphagia as a result of esophageal stricture resulting from throat CA and subsequent radiation therapy status post PEG tube placement who was under hospice care presented following a fall patient was found to have traumatic transverse fracture of the right lateral malleolus and avulsion fracture of the right medial malleolus. Admitted to regular nursing floor with consultation placed to podiatry 1. Acute mechanical fall with traumatic transverse fracture of the right lateral malleolus and avulsion fracture of the right medial malleolus. Admitted to regular nursing floor with consultation placed to podiatry. Patient underwent closed reduction of right ankle fracture with application of external fixation on 04/15/18 by Sima Louise DPM 2. History of adrenal insufficiency patient is on chronic steroid. On predniso ne held treated with IV hydrocortisone 3. Closed head injury CT negative for acute bleed no fracture 4. Chronic hypoxic respiratory failure secondary to COPD patient is on baseline home O2 in addition to bronchodilator treatment this was continued 5. History of throat CA status post radiation therapy with subsequent esophageal stricture patient has a PEG tube 6. Anemia secondary to anemia of chronic disorder as well as acute blood loss anemia did monitor H&H 7. Hypothyroidism-patient is on levothyroxine home dose continued 8. Severe protein calorie malnutrition patient is on nutritional supplementation 9. Chronic dysphagia secondary to esophageal stricture management as discussed above 10. DVT prophylaxis SC Lovenox Code Visit Inpatient E&M: 20164 Subs Hosp L2
--- NOTE | 2018-04-18 13:50 | CASEMGMT ---
MARIBEL CASTILLO called [facility] and spoke with Liv, neonatal icu coordinator. Per Liv, Dr. Lai is requesting additional information from previous hospice company. MARIBEL CASTILLO faxed discharge instructions and summary to [facility]. Liv stated she will call with update regarding patient when available.
--- NOTE | 2018-04-18 14:43 | CASEMGMT ---
Social Work Note MATI received message from Lilly at [facility] stating pt's CM through agency is Bell Rayshawn ([phone]). Lilly states that pt is active with waiver services through [facility] but services have been on hold for month or two due to environment and pt moving back and forth between his home and his girlfriend's home. Lilly states pt has Meals on Wheels, LifeLine button and 9 hours of aide services through [facility]. Lilly states that they were made aware that pt will now be living at his girlfriend's home and will resume services at pt's girlfriend house. Lilly requesting discharge instructions be faxed to [phone]. MATI placed a call to Bell at [facility] and left her a message informing her that pt will be discharged today and pt will either be going home with Hospice or to inpatient unit at Hospice and then transition back home after stay at inpatient unit. MATI faxed discharged instructions to [facility]. Wandy Winter PEAT SHREDDER TENDER, SCHOOL BASED THERAPIST
--- NOTE | 2018-04-18 14:48 | CASEMGMT ---
Received call back from Liv at [facility]. Per Liv a nurse from [facility] is on their way to [facility] to assess patient and assist with discharge planning. MARIBEL CM updated [facility] charge nurse.
--- NOTE | 2018-04-18 15:09 | CHAPLAIN ---
Type of Pastoral Visit _x__ Initial Visit ___ Follow-up Visit ___ On-call Visit ___ General Patient Visit ___ Spiritual Assessment ___ Family Conference ___ Bereavement ___ Rapid Response ___ Code Blue ___ Other (describe below) Pastoral Care Referral From _x__ Patient ___ Family ___ Nurse ___ Physician ___ Shipbuilding Draftsperson ___ Wheel Shop Supervisor ___ Other (describe below) Sacrament/Intervention _x__ Active listening ___ Anointing ___ Shinto ___ Bereavement ___ Communion ___ Chanel exploration ___ _x__ Life review _x__ Prayer ___ Reconciliation ___ Sacrament of Sick _x__ Supportive presence ___ Wedding ___ Other (describe below) Pastoral Comments
--- NOTE | 2018-04-18 15:25 | DCINST_ITS ---
Discharge Diet: - - tube feed Discharge Activity: No Restrictions Keep extremity elevated above heart level: Right Leg Call your doctor if your incision/area has: Continuous Slow Oozing, Sudden Increased Bleeding, Increased Pain/ Swelling, Increased Redness, Foul Smelling Discharge, Swelling at the incision site Call your doctor if you observe: Fever of 101 or Higher, Calf discomfort, Uncontrolled pain Cleanse incision/area with: Keep Dressing Clean & Dry, - - change dressing every 72 hours and reapply xeroform to all pin sites and fracture blister site to the ankle. perform pin site care with betadine. cover with gauze and pack kerlix around the pin sites. cover entire external fixation with demarco wraps. Allergies/Adverse Reactions: Allergies No Known Allergies Allergy (Verified 02/09/17 14:11) Medications to take at Discharge Buspirone HCl 10 mg GT BID 08/16/17 Duloxetine HCl 60 mg GT DAILY 08/16/17 Gabapentin [Neurontin] 800 mg GT TIDCM 08/16/17 Ipratropium/Albuterol Sulfate [Duoneb] 3 ml INHALATION Q4H.RT 08/16/17 Levothyroxine Sodium [Levoxyl] 150 mcg GT DAILY 08/16/17 Mirtazapine [Remeron] 15 mg GT QHS 08/16/17 Omeprazole [Prilosec] 20 mg GT DAILY 08/16/17 Tramadol HCl [Ultram] 50 mg GT Q8H PRN PRN 08/16/17 Acetaminophen [Mapap] 650 mg GT Q6H PRN PRN 04/14/18 Ascorbic Acid [Vitamin C] 500 mg GT DAILY 04/14/18 Aspirin 81 mg GT DAILY 04/14/18 Cholecalciferol (VIT D3) [Vitamin D3] 04/14/18 Clobetasol Propionate/Emoll [Clobetasol Emollient 0.05% Crm] 1 each TP DAILY 04/14/18 Ferrous Sulfate Syrup 300 mg GT BID 04/14/18 Meclizine HCl 25 mg GT BID PRN PRN 04/14/18 Ondansetron HCl [Zofran Solution] 8 mg GT DAILY PRN PRN 04/14/18 Prednisone 5 mg GT DAILY 04/14/18 Senna/Docusate Sodium [Senokot-S] 1 tab GT BID 04/14/18 Sennosides/Docusate Sodium [Senna-S Tablet] 1 each GT BID 04/14/18 Tizanidine HCl 4 mg GT TID 04/14/18 Zolpidem Tartrate [Ambien] 5 mg GT QHS 04/14/18 Lactose-Reduced Food [Ensure Plus] 237 ml GT 4X/DAY 04/16/18 Jevity 1.5 240 ml GT 5X/DAY bottle 04/18/18 traMADol [Ultram] 50 mg GT Q6H PRN PRN 5 Days #20 tablet 04/18/18 The following prescriptions were given: traMADol [Ultram] 50 mg GT Q6H PRN PRN 5 Days #20 tablet PRN Reason: Pain Primary Care Physician: Soheila Moore MD [Primary Care Provider] - Please follow up with your Primary Care Physician in: IN 1-2 WEEKS Test Results: Test results from this visit will be discussed in further detail at your follow- up appointment, if applicable. Please Follow Up With: Sima Louies DPM When: IN 1 WEEK; [facility], call [phone] Proposed Discharge Date: 04/18/18
--- NOTE | 2018-04-18 17:43 | NURSING ---
hospice community liaison had come to see pt, but didn't get to talk with the pt because he was using the bedpan at the time of her visit. she requested therapy work with the pt and then have us call them with updates on how the pt did with therapy. attempted to call [facility] to provide update, but there was no answer. they will need to be contacted tomorrow morning 04/19
[2018-04-18] MEDS: Mirtazapine 15 MG Tablet GT (21:08)
[2018-04-18] MEDS: Zolpidem Tartrate 5 MG Tablet GT (21:12)
[2018-04-19 02:00] VITALS: BP 125/73; PULSE 68; RESP 16; TEMP 36.8; O2SAT 97
[2018-04-19] MEDS: oxyCODONE 5 MG Tablet GT ×3 (02:05→12:17)
[2018-04-19] MEDS: Ipratropium/Albuterol Sulfate 3 ML AMPUL.NEB INHALATION ×3 (03:03→11:27)
[2018-04-19] MEDS: traMADol 50 MG Tablet GT ×2 (05:06→13:15)
[2018-04-19] MEDS: Levothyroxine 50 MCG Tablet GT (05:07)
[2018-04-19] MEDS: tiZANidine HCl 2 MG Tablet 4 MG GT ×2 (05:07→14:21)
[2018-04-19] MEDS: Hydrocortisone Sod Succinate 100 MG/2 ML Vial 50 MG IV ×2 (05:08→14:20)
[2018-04-19] MEDS: Jevity 1.5. 1,000 ML Bottle 240 ML GT ×3 (05:08→14:22)
[2018-04-19] MEDS: Levothyroxine 112 MCG Tablet GT (05:08)
[2018-04-19 06:53] LABS: Hematocrit 30.5 % (40-54); Hemoglobin 9.5 g/dl (13.0-16.5); Mean Corp Hgb Conc 31.1 g/gl (32-36); Mean Corpuscular Hgb 27.9 pg (27.0-32.0); Mean Corpuscular Volume 89.7 fL (80-94); Platelet Count 430 K/mm3 (150-450); RBC Distribution Width CV 15.4 % (11.6-14.6); RBC Distribution Width SD 49.5 fl (35.1-43.9); White Blood Count 24.5 K/mm3 (4.4-11.0)
[2018-04-19 06:54] LABS: Anion Gap 6 (5-15); BUN 11 mg/dL (7-18); BUN/Creat Ratio 15.8 RATIO (10-20); Calcium,Total 8.5 mg/dL (8.5-10.1); Chloride 99 mmol/L (98-107); EST Glomerular Filtration Rate 119 mL/min (>60); Est Glom Filt Rate - Afr Amer 144 mL/min (>60); Estimated Creatinine Clearance 56.41 ml/min; Glucose 175 mg/dL (74-106); Potassium 4.3 mmol/L (3.5-5.1); Sodium Level 136 mmol/L (136-145)
[2018-04-19 06:56] LABS: Scan Indicated on CBC? Y/N NO
[2018-04-19 07:08] VITALS: PULSE 90; RESP 18; O2SAT 95
--- NOTE | 2018-04-19 07:41 | PN_ITS ---
Patient Problems: Active and Suspected Problems Bimalleolar fracture of right ankle (Acute) Blister (Acute) Ankle fracture, right (Acute) Subjective: Patient discharge was delayed for a day while awaiting for PT to evaluate prior to transfer to inpatient rehab Objective: GENERAL: Not in distress HEENT: Atraumatic; EYES; Anicteric, Normal Conjunctiva NECK; supple, normal thyroid, RESPIRATORY: Diminished to auscultation bilaterally, CARDIOVASCULAR: Regular S1 S2, GI: soft, non-tender, normoactive bowel sounds, : No Renal angle tenderness; EXTREMITIES: No edema, no clubbing, no cyanosis. MUSCULOSKELETAL: Right ankle with an external fixator surgical dressing NEURO: Awake; no lateralizing signs. SKIN: No Rash PSYCH; Normal affect Vitals/I&O's: Vital Signs Temp Pulse Resp BP Pulse Ox 98.2 F 68 16 125/73 H 97 04/19/18 02:00 04/19/18 02:00 04/19/18 02:00 04/19/18 02:00 04/19/18 02:00 Oxygen Flow Rate (L/min) [1] 15 Oxygen Flow Rate (L/min) [6] 3 Oxygen Flow Rate (L/min) [5] 3 Oxygen Flow Rate (L/min) [3] 15 Oxygen Flow Rate (L/min) 2 Oxygen Delivery Method [1] Non-Rebreather Oxygen Delivery Method [6] Nasal Cannula Oxygen Delivery Method [5] Nasal Cannula Oxygen Delivery Method [4] Non-Rebreather Oxygen Delivery Method [3] Non-Rebreather Oxygen Delivery Method [2] Nasal Cannula Oxygen Delivery Method Nasal Cannula Weight: 57.2 kg Body Mass Index (BMI) 17.1 Intake and Output for Last 24 Hours 04/17/18 04/18/18 04/19/18 23:59 23:59 23:59 Intake Total 5124 / 5124 2860 / 2860 720 / 720 Output Total 1300 / 1300 1800 / 1800 1400 / 1400 Balance 3824 / 3824 1060 / 1060 -680 / -680 Laboratory Results 04/19/18 06:10: WBC 24.5 H, RBC 3.40 L, Hgb 9.5 L, Hct 30.5 L, MCV 89.7, MCH 27.9, MCHC 31.1 L, RDW 15.4 H, RDW Differential 49.5 H, Plt Count 430, MPV 9.0 04/19/18 06:10: Sodium 136, Potassium 4.3, Chloride 99, Carbon Dioxide 31.0, Anion Gap 6, BUN 11, Creatinine 0.70, Estim Creat Clear Calc 56.41, Est GFR (MDRD) Af Amer 144, Est GFR (MDRD) Non-Af 119, BUN/Creatinine Ratio 15.8, Glucose 175 H, Calcium 8.5, Magnesium 2.0 Current Medications Acetaminophen (Tylenol Liquid) 650 mg GT Q6H PRN PRN PRN Reason: Mild Pain (1-3)/Temp > 100.7 Last Admin: 04/18/18 08:25 Dose: 650 mg Albuterol/Ipratropium (Duoneb) 3 ml INHALATION Q4H.RT [facility] Last Admin: 04/19/18 07:08 Dose: 3 ml Buspirone HCl (Buspar) 10 mg GT BID [facility] Last Admin: 04/18/18 21:09 Dose: 10 mg Clobetasol Propionate (Temovate Cream (Bkc)) 1 applic TOPICAL DAILY [facility]; Protocol Last Admin: 04/18/18 08:26 Dose: Not Given Duloxetine HCl (Cymbalta) 60 mg PO DAILY [facility] Last Admin: 04/18/18 08:25 Dose: 60 mg Enoxaparin Sodium (Lovenox) 40 mg SC DAILY [facility] Last Admin: 04/18/18 08:25 Dose: 40 mg Enteral Nutritional Formula (Jevity 1.5) 240 ml GT 5X/DAY [facility] Last Admin: 04/19/18 05:08 Dose: 240 ml Ferrous Sulfate (Ferrous Sulfate Syrup) 300 mg GT BID [facility] Last Admin: 04/18/18 21:08 Dose: 300 mg Gabapentin (Neurontin) 800 mg GT TIDCM [facility] Last Admin: 04/18/18 17:57 Dose: 800 mg Hydrocortisone Sodium Succinate (Solu-Cortef) 50 mg IV Q8 [facility] Last Admin: 04/19/18 05:08 Dose: 50 mg Lansoprazole (Lansoprazole) 15 mg GT DAILY [facility] Last Admin: 04/18/18 10:27 Dose: 15 mg Levothyroxine Sodium (Synthroid) 50 mcg GT DAILY@0600 [facility] Last Admin: 04/19/18 05:07 Dose: 50 mcg Levothyroxine Sodium (Synthroid) 112 mcg GT DAILY@0600 [facility] Last Admin: 04/19/18 05:08 Dose: 112 mcg Magnesium Hydroxide (Milk Of Magnesia) 30 ml GT DAILY PRN PRN PRN Reason: Constipation Meclizine HCl (Antivert) 25 mg GT BID PRN PRN PRN Reason: OTHER Mirtazapine (Remeron) 15 mg GT QHS [facility] Last Admin: 04/18/18 21:08 Dose: 15 mg Morphine Sulfate () 1 - 2 mg IV Q4H PRN PRN PRN Reason: MOD-SEVERE PAIN (4-10/10) Last Admin: 04/16/18 12:16 Dose: 2 mg Ondansetron HCl (Zofran Odt) 8 mg GT DAILY PRN PRN PRN Reason: NAUSEA Oxycodone HCl (Oxyir) 5 - 10 mg GT Q4H PRN PRN PRN Reason: MOD-SEVERE PAIN (4-10/10) Last Admin: 04/19/18 02:05 Dose: 10 mg Senna/Docusate Sodium (Senokot-S, Marcela-Colace) 1 tablet GT BID [facility] Last Admin: 04/18/18 21:12 Dose: Not Given Sodium Chloride () 5 - 15 ml IV UD PRN PRN Reason: SALINE FLUSH Last Admin: 04/18/18 21:09 Dose: 10 ml Tizanidine HCl (Zanaflex) 4 mg GT TID [facility] Last Admin: 04/19/18 05:07 Dose: 4 mg Tramadol HCl (Ultram) 50 mg GT Q8H PRN PRN PRN Reason: PAIN Last Admin: 04/19/18 05:06 Dose: 50 mg Zolpidem Tartrate (Ambien (Generic)) 5 mg GT QHS [facility] Last Admin: 04/18/18 21:12 Dose: 5 mg Medical Necessity - Tobacco Use Smoking Status: Former smoker Tobacco Use: Non-smoker Assessment/Plan All Active Problems Bimalleolar fracture of right ankle (Acute) Blister (Acute) Ankle fracture, right (Acute) The patient is a 67 year old M with past medical history is again for chronic dysphagia as a result of esophageal stricture resulting from throat CA and subsequent radiation therapy status post PEG tube placement who was under hospice care presented following a fall patient was found to have traumatic transverse fracture of the right lateral malleolus and avulsion fracture of the right medial malleolus. Admitted to regular nursing floor with consultation placed to podiatry 1. Acute mechanical fall with traumatic transverse fracture of the right lateral malleolus and avulsion fracture of the right medial malleolus. Admitted to regular nursing floor with consultation placed to podiatry. Patient underwent closed reduction of right ankle fracture with application of external fixation on 04/15/18 by Sima Louise DPM 2. History of adrenal insufficiency patient is on chronic steroid. On prednisone held treated with IV hydrocortisone 3. Closed head injury CT negative for acute bleed no fracture 4. Chronic hypoxic respiratory failure secondary to COPD patient is on baseline home O2 in addition to bronchodilator treatment this was continued 5. History of throat CA status post radiation therapy with subsequent esophageal stricture patient has a PEG tube 6. Anemia secondary to anemia of chronic disorder as well as acute blood loss anemia did monitor H&H 7. Hypothyroidism-patient is on levothyroxine home dose continued 8. Severe protein calorie malnutrition patient is on nutritional supplementation 9. Chronic dysphagia secondary to esophageal stricture management as discussed above 10. DVT prophylaxis SC Lovenox Code Visit Inpatient E&M: 33642 Subs Hosp L2
[2018-04-19 08:00] VITALS: BP 119/61; PULSE 75; RESP 18; TEMP 36.5; O2SAT 97
[2018-04-19] MEDS: Gabapentin 800 MG Tablet GT ×2 (08:09→12:17)
[2018-04-19] MEDS: busPIRone 15 MG TABLET 10 MG GT (08:09)
[2018-04-19] MEDS: LANSOPRAZOLE 15 MG CAPSULE.DR GT (08:10)
[2018-04-19] MEDS: DULoxetine Hcl 60 MG Capsule PO (08:10)
[2018-04-19] MEDS: Ferrous Sulfate 300 MG/5 ML UDC GT (08:10)
[2018-04-19] MEDS: Enoxaparin 40 MG/0.4 ML Syringe SC (08:11)
--- NOTE | 2018-04-19 09:30 | PCM.DC.SUM ---
Discharge Date and Diagnosis - Problem List Patient Problems: Active and Suspected Problems Bimalleolar fracture of right ankle (Acute) Blister (Acute) Ankle fracture, right (Acute) Date of Admission: 04/14/18 Date of Discharge: 04/19/18 - Primary Discharge Diagnosis Active and Suspected Problems Bimalleolar fracture of right ankle (Acute) Blister (Acute) Ankle fracture, right (Acute) - Secondary Discharge Diagnosis Chronic Problems COPD (chronic obstructive pulmonary disease) (Chronic) Severe malnutrition (Chronic) Status post insertion of percutaneous endoscopic gastrostomy (PEG) tube (Chronic) GERD (gastroesophageal reflux disease) (Chronic) Hypothyroidism (Chronic) Depression (Chronic) History of throat cancer (Chronic) Dysphagia (Chronic) Hospital Course and Treatment Operations: None Summary of Care Provided: The patient is a 67 year old M with past medical history is again for chronic dysphagia as a result of esophageal stricture resulting from throat CA and subsequent radiation therapy status post PEG tube placement who was under hospice care presented following a fall patient was found to have traumatic transverse fracture of the right lateral malleolus and avulsion fracture of the right medial malleolus. Admitted to regular nursing floor with consultation placed to podiatry 1. Acute mechanical fall with traumatic transverse fracture of the right lateral malleolus and avulsion fracture of the right medial malleolus. Admitted to regular nursing floor with consultation placed to podiatry. Patient underwent closed reduction of right ankle fracture with application of external fixation on 04/15/18 by Sima Louise DPM 2. History of adrenal insufficiency patient is on chronic steroid. On prednisone held treated with IV hydrocortisone prednisone resumed on discharge 3. Closed head injury CT negative for acute bleed no fracture 4. Chronic hypoxic respiratory failure secondary to COPD patient is on baseline home O2 in addition to bronchodilator treatment this was continued 5. History of throat CA status post radiation therapy with subsequent esophageal stricture patient has a PEG tube 6. Anemia secondary to anemia of chronic disorder as well as acute blood loss anemia did monitor H&H 7. Hypothyroidism-patient is on levothyroxine home dose continued 8. Severe protein calorie malnutrition patient is on nutritional supplementation 9. Chronic dysphagia secondary to esophageal stricture management as discussed above 10. DVT prophylaxis SC Lovenox 11. Physical deconditioning patient was transferred to hospice in a medical facility Patient Problems: Active and Suspected Problems Bimalleolar fracture of right ankle (Acute) Blister (Acute) Ankle fracture, right (Acute) - Physical Exam General: No apparent distress HEENT: Atraumatic Neck: Supple Lungs: Diminished Psych/Mental Status: Normal Affect Vital Signs Temp Pulse Resp BP Pulse Ox 97.7 F L 75 18 119/61 97 04/19/18 08:00 04/19/18 08:00 04/19/18 08:00 04/19/18 08:00 04/19/18 08:00 Oxygen Flow Rate (L/min) [1] 15 Oxygen Flow Rate (L/min) [6] 3 Oxygen Flow Rate (L/min) [5] 3 Oxygen Flow Rate (L/min) [3] 15 Oxygen Flow Rate (L/min) 2 Oxygen Delivery Method [1] Non-Rebreather Oxygen Delivery Method [6] Nasal Cannula Oxygen Delivery Method [5] Nasal Cannula Oxygen Delivery Method [4] Non-Rebreather Oxygen Delivery Method [3] Non-Rebreather Oxygen Delivery Method [2] Nasal Cannula Oxygen Delivery Method Nasal Cannula Weight: 57.2 kg Body Mass Index (BMI) 17.1 Intake and Output for Last 24 Hours 04/17/18 04/18/18 04/19/18 23:59 23:59 23:59 Intake Total 5124 / 5124 2860 / 2860 720 / 720 Output Total 1300 / 1300 1800 / 1800 1400 / 1400 Balance 3824 / 3824 1060 / 1060 -680 / -680 Laboratory Tests Past 24 Hrs 04/19/18 04/19/18 06:10 06:10 WBC 24.5 H RBC 3.40 L Hgb 9.5 L Hct 30.5 L MCV 89.7 MCH 27.9 MCHC 31.1 L RDW 15.4 H RDW Differential 49.5 H Plt Count 430 MPV 9.0 Sodium 136 Potassium 4.3 Chloride 99 Carbon Dioxide 31.0 Anion Gap 6 BUN 11 Creatinine 0.70 Estim Creat Clear Calc 56.41 Est GFR (MDRD) Af Amer 144 Est GFR (MDRD) Non-Af 119 BUN/Creatinine Ratio 15.8 Glucose 175 H Calcium 8.5 Magnesium 2.0 Discharge Diet: - - tube feed Discharge Activity: No Restrictions Keep extremity elevated above heart level: Right Leg Call your doctor if your incision/area has: Continuous Slow Oozing, Sudden Increased Bleeding, Increased Pain/ Swelling, Increased Redness, Foul Smelling Discharge, Swelling at the incision site Call your doctor if you observe: Fever of 101 or Higher, Calf discomfort, Uncontrolled pain Cleanse incision/area with: Keep Dressing Clean & Dry, - - change dressing every 72 hours and reapply xeroform to all pin sites and fracture blister site to the ankle. perform pin site care with betadine. cover with gauze and pack kerlix around the pin sites. cover entire external fixation with demarco wraps. Home Medications: Medications to take at Discharge Buspirone HCl 10 mg GT BID 08/16/17 Duloxetine HCl 60 mg GT DAILY 08/16/17 Gabapentin [Neurontin] 800 mg GT TIDCM 08/16/17 Ipratropium/Albuterol Sulfate [Duoneb] 3 ml INHALATION Q4H.RT 08/16/17 Levothyroxine Sodium [Levoxyl] 150 mcg GT DAILY 08/16/17 Mirtazapine [Remeron] 15 mg GT QHS 08/16/17 Omeprazole [Prilosec] 20 mg GT DAILY 08/16/17 Tramadol HCl [Ultram] 50 mg GT Q8H PRN PRN 08/16/17 Acetaminophen [Mapap] 650 mg GT Q6H PRN PRN 04/14/18 Ascorbic Acid [Vitamin C] 500 mg GT DAILY 04/14/18 Aspirin 81 mg GT DAILY 04/14/18 Cholecalciferol (VIT D3) [Vitamin D3] 04/14/18 Clobetasol Propionate/Emoll [Clobetasol Emollient 0.05% Crm] 1 each TP DAILY 04/14/18 Ferrous Sulfate Syrup 300 mg GT BID 04/14/18 Meclizine HCl 25 mg GT BID PRN PRN 04/14/18 Ondansetron HCl [Zofran Solution] 8 mg GT DAILY PRN PRN 04/14/18 Prednisone 5 mg GT DAILY 04/14/18 Senna/Docusate Sodium [Senokot-S] 1 tab GT BID 04/14/18 Sennosides/Docusate Sodium [Senna-S Tablet] 1 each GT BID 04/14/18 Tizanidine HCl 4 mg GT TID 04/14/18 Zolpidem Tartrate [Ambien] 5 mg GT QHS 04/14/18 Lactose-Reduced Food [Ensure Plus] 237 ml GT 4X/DAY 04/16/18 Jevity 1.5 240 ml GT 5X/DAY bottle 04/18/18 traMADol [Ultram] 50 mg GT Q6H PRN PRN 5 Days #20 tablet 04/18/18 Following Prescrptions Were Given to Patient: traMADol [Ultram] 50 mg GT Q6H PRN PRN 5 Days #20 tablet PRN Reason: Pain Primary Care Physician: Soheila Moore MD [Primary Care Provider] - Please follow up with your Primary Care Physician in: IN 1-2 WEEKS Please Follow Up With: Sima Louise DPM When: IN 1 WEEK; [facility], call [phone] Disposition: Hospice Medical Facility Minutes spent on discharge:: 45 Patient Condition:: Stable Medical Necessity - Tobacco Use Smoking Status: Former smoker Tobacco Use: Non-smoker Meaningful Use Info Meaningful Use Diagnoses (Choose all that apply): None applicable Code Visit Inpatient E&M: 00450 Disch Hosp
--- NOTE | 2018-04-19 10:38 | CASEMGMT ---
MARIBEL CASTILLO received updated from Jerry LÓPEZ at [facility]. Patient can discharge to [facility] inpatient hospice unit. Jerry LÓPEZ requested transport be setup for 1400. Primary RN updated. hospital secretary to setup transport. MARIBEL CASTILLO updated patient regarding plans to discharge to inpatient hospice at [facility].
--- NOTE | 2018-04-19 11:17 | CASEMGMT ---
Social Work Note SW placed a call to pt's CM Bell Tabares at [facility] and left her a message informing her that pt is being discharged today to Inpatient Hospice at [facility]. Wandy Winter PLATE GRAINER, DEPARTMENT CLINICIAN
[2018-04-19 11:27] VITALS: PULSE 72; RESP 18
--- NOTE | 2018-04-19 14:48 | PN_ITS ---
Subjective: 67-year-old male on hospice was seen bedside postoperative day #4 external fixation device application to the right lower extremity for treatment of by malleolus ankle fracture with fracture blisters and soft tissue extensive injuries. He has continued pain however reports this is controlled. He denies fever, chill, nausea, vomiting, calf pain, shortness of breath or chest pain. He is scheduled to be transferred later this afternoon. - Physical Exam General: Alert, Oriented x3, Cooperative Extremities: No cyanosis, Capillary Refill Less than 3 Seconds - All digits bilateral lower extremity, No Calf Tenderness - Negative Crawley sign bilateral, Diminished Peripheral Pulses, Edema Skin: Ulcer/ Wound - The dressing is clean, dry, and intact to the right lower extremity with external fixation device in place and the foot and ankle are in a rectus position. There is no odor or proximal streaking or erythema noted extending from the dressing Musculoskeletal: Muscle Wasting, - - Active range of motion digits x10 Neurological: - - Epicritic sensation intact to light touch to all toes bilateral lower extremities Psych/Mental Status: Normal Affect, Appropriate Vital Signs Temp Pulse Resp BP Pulse Ox 97.7 F L 72 18 119/61 97 04/19/18 08:00 04/19/18 11:27 04/19/18 11:27 04/19/18 08:00 04/19/18 08:00 Oxygen Flow Rate (L/min) [1] 15 Oxygen Flow Rate (L/min) [6] 3 Oxygen Flow Rate (L/min) [5] 3 Oxygen Flow Rate (L/min) [3] 15 Oxygen Flow Rate (L/min) 2 Oxygen Delivery Method [1] Non-Rebreather Oxygen Delivery Method [6] Nasal Cannula Oxygen Delivery Method [5] Nasal Cannula Oxygen Delivery Method [4] Non-Rebreather Oxygen Delivery Method [3] Non-Rebreather Oxygen Delivery Method [2] Nasal Cannula Oxygen Delivery Method Nasal Cannula Weight: 57.2 kg Body Mass Index (BMI) 17.1 Intake and Output for Last 24 Hours 04/17/18 04/18/18 04/19/18 23:59 23:59 23:59 Intake Total 5124 / 5124 2860 / 2860 1110 / 1110 Output Total 1300 / 1300 1800 / 1800 1400 / 1400 Balance 3824 / 3824 1060 / 1060 -290 / -290 Laboratory Tests Past 24 Hrs 04/19/18 04/19/18 06:10 06:10 WBC 24.5 H RBC 3.40 L Hgb 9.5 L Hct 30.5 L MCV 89.7 MCH 27.9 MCHC 31.1 L RDW 15.4 H RDW Differential 49.5 H Plt Count 430 MPV 9.0 Sodium 136 Potassium 4.3 Chloride 99 Carbon Dioxide 31.0 Anion Gap 6 BUN 11 Creatinine 0.70 Estim Creat Clear Calc 56.41 Est GFR (MDRD) Af Amer 144 Est GFR (MDRD) Non-Af 119 BUN/Creatinine Ratio 15.8 Glucose 175 H Calcium 8.5 Magnesium 2.0 Medical Necessity - Tobacco Use Smoking Status: Former smoker Tobacco Use: Non-smoker Assessment/Plan All Active Problems Bimalleolar fracture of right ankle (Acute) Blister (Acute) Ankle fracture, right (Acute) Postoperative day # 4 closed reduction application of external fixation right bimalleolar ankle fracture Fracture blisters Severe malnutrition (history of throat cancer with dysphagia and PEG placement) Significant past medical history of COPD, hypothyroidism, depression, GERD I reviewed and discussed his case. His vital signs remained stable. He does have progressive leukocytosis which may be post trauma or anesthesia. There were no local lower extremity signs of infection. This will be monitored. He was advised to ice and elevate to reduce edema and pain. He has been taking pain medicine and his pain is better controlled today. To maintain a strict nonweightbearing status. Medical management and DVT prophylaxis per primary team is greatly appreciated. To continue with nutritional supplementation to optimize healing; it is noted nutrition services is on consult. Upon discharge [facility] 1 [facility]. I discussed his case with his proposed [facility] pice team as well as with the patient. He does elect to proceed forward with internal fixation after his soft tissue envelope has improved. I will continue to follow him closely while in house. Please not hesitate to call if you have any questions. Sima Louise DPM, FACFAS [facility] [phone]
[2018-04-19 16:00] VITALS: BP 146/73; PULSE 73; RESP 18; TEMP 36.7; O2SAT 93
== END 2018-04-19 16:54 | disposition hospice, inpatient (51) | DRG 492 ==
LOC: ED 15:27 → MS3 15:37
PROVIDERS: Hospitalist; Physician Assistant; Podiatrist; Emergency Provider Emergency Medicine; Family Provider Internal Medicine; PCP Internal Medicine; Visit Provider Internal Medicine
DX: S82.841A Displaced bimalleolar fracture of right lower leg, initial encounter for closed fracture (principal); E43 Unspecified severe protein-calorie malnutrition; Z68.1 Body mass index [BMI] 19.9 or less, adult; E27.40 Unspecified adrenocortical insufficiency; J96.11 Chronic respiratory failure with hypoxia; D62 Acute posthemorrhagic anemia; W00.0XXA Fall on same level due to ice and snow, initial encounter; Z85.819 Personal history of malignant neoplasm of unspecified site of lip, oral cavity, and pharynx; E03.9 Hypothyroidism, unspecified; R13.10 Dysphagia, unspecified; F32.9 Major depressive disorder, single episode, unspecified; Z93.1 Gastrostomy status; K21.9 Gastro-esophageal reflux disease without esophagitis; Z99.81 Dependence on supplemental oxygen; J44.9 Chronic obstructive pulmonary disease, unspecified; K22.2 Esophageal obstruction; Y84.2 Radiological procedure and radiotherapy as the cause of abnormal reaction of the patient, or of later complication, without mention of misadventure at the time of the procedure; S09.90XA Unspecified injury of head, initial encounter; Z87.891 Personal history of nicotine dependence
CPT/HCPCS: 36415; 70450; 71045; 73600; 73610; 73620; 73700; 76000; 76377; 80048; 82306; 83735; 84134; 84439; 84443; 85014; 85018; 85025; 85027; 85610; 85730; 93005; 94640; 94762; 97163; 97802; 99285; C1713; J7030; J7040; A4216